=== PATIENT | female | born 1950 | race Caucasian/White ===

== ENCOUNTER 2022-05-16 12:47 | Outpatient (REF) | payer OTHER, SELFPAY ==
--- NOTE | ~2022-05-16 | XR_ITS ---
EXAMINATION: XR CHEST CLINICAL INFORMATION: Cough. COMPARISON: 04/15/2018 chest radiographs. TECHNIQUE: 2 views of the chest were obtained. FINDINGS: No significant abnormality is noted involving the heart, lungs, mediastinum, bony thorax or soft tissues. XR/XR chest 2V IMPRESSION: No acute cardiopulmonary process.
== END 2022-05-16 12:48 | disposition home or self-care (01) ==
LOC: HO.HMGCX 12:47
PROVIDERS: PCP Internal Medicine; Visit Provider Internal Medicine
DX: R05.9 Cough, unspecified (principal)
CPT/HCPCS: 71046

== ENCOUNTER 2022-06-21 09:54 | Outpatient (REF) | payer OTHER, SELFPAY ==
[2022-06-21 11:18] LABS: MANUAL DIFF FLAG NO
[2022-06-21 11:49] LABS: Basophils Percent Auto 0.8 % (0-2); Eosinophils Absolute Auto 0.1 X10*3/uL (0.0-0.4); Eosinophils Percent Auto 2.2 % (0-4); Hemoglobin 13.8 g/dl (12.0-16.0); Imm Gran Abs Auto 0.01 X10*3/uL (0.00-0.03); Imm Gran Pct Auto 0.2 % (0.0-0.4); Lymphocytes Absolute Auto 1.5 X10*3/uL (1.2-4.9); Lymphocytes Percent Auto 30.7 % (20-40); Mean Corpuscular HGB Conc 33.7 g/dl (31.0-35.0); Mean Corpuscular Hemoglobin 28.4 pg (27.0-33.0); Mean Corpuscular Volume 84.4 fL (80.0-98.0); Mean Platelet Volume 10.1 fL (9.4-12.3); Monocytes Absolute Auto 0.3 X10*3/uL (0.1-1.2); Monocytes Percent Auto 5.5 % (2-11); Neutrophils Percent Auto 60.6 % (45-73); Platelet Count 217 X10*3/uL (160-400); Red Blood Count 4.86 X10*6/uL (4.20-5.50)
[2022-06-21 12:18] LABS: Alanine Aminotransferase 28 U/L (0-31); Albumin Level 3.9 g/dL (3.5-5.0); Alkaline Phosphatase 63 U/L (39-117); Anion Gap 12 (12-20); Aspartate Amino Transferase 18 U/L (5-31); Bilirubin Total 0.5 mg/dL (0.0-1.0); Blood Urea Nitrogen 19 mg/dL (9-16); C Reactive Protein 0.33 mg/dL (< or = 0.50); Calcium 9.2 mg/dL (8.4-10.2); Carbon Dioxide 29 mmol/L (22-29); Chloride 106 mmol/L (96-108); Cholesterol 187 mg/dL; Estimated Glomerular Filt Rate > 60; Glucose Fasting 106 mg/dL (60-99); HDL Cholesterol 52 mg/dL; LDL Cholesterol Calculated 111 mg/dl; Potassium 4.1 mmol/L (3.3-5.1); Rheumatoid Factor 20.8 IU/mL (<15.0); Sodium 143 mmol/L (135-145); Total Protein 6.6 g/dL (6.5-8.0); Triglycerides 121 mg/dL
[2022-06-21 12:19] LABS: TSH reflex Free T4 1.26 uIU/mL (0.32-4.0)
[2022-06-21 12:20] LABS: Uric Acid 7.3 mg/dL (2.4-5.7)
== END 2022-06-21 09:55 | disposition home or self-care (01) ==
LOC: HO.HMGCLDS 09:54
PROVIDERS: PCP Internal Medicine; Visit Provider Internal Medicine
DX: Z00.00 Encounter for general adult medical examination without abnormal findings (principal); M25.50 Pain in unspecified joint; J44.9 Chronic obstructive pulmonary disease, unspecified; E78.5 Hyperlipidemia, unspecified
CPT/HCPCS: 36415; 80053; 80061; 82306; 84443; 84550; 85025; 86140; 86431

== ENCOUNTER 2022-07-18 14:53 | Outpatient (REF) | payer OTHER, SELFPAY ==
--- NOTE | ~2022-07-18 | MM_ITS ---
EXAMINATION: BONE DENSITOMETRY CLINICAL INDICATION: Asymptomatic menopausal state. COMPARISON: None (current study represents initial baseline exam). TECHNIQUE: Using a [employer] Data DXA System (software version: 13.1) manufactured by [employer], dual-energy x-ray absorptiometry was performed of the lumbar spine and left hip. The images are of good technical quality. Summary results are attached. FINDINGS: AP SPINE L1-L4: BMD 1.040 g/cm2, Z-score 0.1, T-score -1.2, osteopenia. LEFT FEMUR, NECK: BMD 0.853 g/cm2, Z-score 0.1, T-score -1.3, osteopenia. LEFT FEMUR, TOTAL: BMD 1.003 g/cm2, Z-score 1.1, T-score 0.0, normal. IDENTIFIED RISK FACTORS: Bilateral oophorectomy, early menopause, hysterectomy, rheumatoid arthritis, secondary osteoporosis, thiazide. HISTORY OF FRACTURE: None listed. MEDICATIONS: None listed. MM/XR DEXA axial skeleton IMPRESSION: 1. DIAGNOSIS: Osteopenia based on the lowest T-score value of -1.3 in the femoral neck applying World Health Organization criteria. 2. 10-YEAR FRACTURE RISK PREDICTION, FRAX: Major osteoporotic fracture (clinical spine, forearm, hip or shoulder) 11.7%. Hip fracture 1.6%. 3. Treatment Recommendations: NOF guidelines recommend consideration for treatment in postmenopausal women and men age 50 and older presenting with the following: -A hip or vertebral (clinical or morphometric) fracture. -T-score less than or equal to -2.5 at the femoral neck or spine after appropriate evaluation to exclude secondary causes. -Low bone mass at the hip or spine and a 10-year fracture probability by FRAX of greater than or equal to 3% for hip fracture or greater than or equal to 20% for major osteoporotic fracture based on the [place] adapted WHO algorithm. 4. Other Recommendations: All treatment decisions require clinical judgment and consideration of individual patient factors, including patient preferences, comorbidities, previous drug use, risk factors not captured in the FRAX model (e.g. frailty, falls, vitamin D deficiency, increased bone turnover, interval significant decline in bone density) and possible under or overestimation of fracture risk by FRAX. Additional medical evaluation for secondary cause of low bone mineral density may be appropriate. FUTURE SCAN RECOMMENDATION: People with diagnosed cases of osteoporosis or at high risk for fracture should have regular bone mineral density tests. For patients eligible for Medicare, routine testing is allowed once every 2 years. The testing frequency can be increased to one year for patients who have rapidly progressing disease, those who are receiving or discontinuing medical therapy to restore bone mass, or have additional risk factors.
--- NOTE | 2022-07-18 17:08 | PFT_ITS ---
INDICATION: COPD. SPIROMETRY: FEV1 to FVC of 82% with an FEV1 of 2.09 L, which is 99% predicted and FVC of 2.51 L, which is 90% predicted. No significant response to bronchodilator is noted. Maximum voluntary ventilation 80% predicted. LUNG VOLUMES: Total lung capacity 95% predicted. DIFFUSION CAPACITY: DLCO 82% predicted. COMPARISONS: None. INTERPRETATION: No obstructive nor restrictive ventilatory defects identified. No significant response to bronchodilator is noted. Low-normal maximum voluntary ventilation. There could be some minimal deconditioning. Lung volumes are normal and diffusion capacity is also within normal limits. If asthma is in the differential, a methacholine challenge may be helpful in assessing for hyperreactive airways. Otherwise, clinical correlation warranted. MD HUMERA Atkinson/MODL / [id number]
== END 2022-07-18 14:54 | disposition home or self-care (01) ==
LOC: HO.RESP 14:53
PROVIDERS: PCP Internal Medicine; Visit Provider Internal Medicine
DX: Z13.820 Encounter for screening for osteoporosis (principal); Z78.0 Asymptomatic menopausal state; J44.9 Chronic obstructive pulmonary disease, unspecified
CPT/HCPCS: 77080; 94060; 94727; 94729

== ENCOUNTER 2022-12-18 10:59 | Outpatient (AMB) | payer OTHER, SELFPAY ==
[2022-12-18 11:02] VITALS: BP 136/78; PULSE 76; O2SAT 97; BMI 31.4
--- NOTE | 2022-12-18 11:02 | A.OFFPC_ITS ---
Vital Signs 12/18/22 11:02 Height 5 ft 3 in Weight 177 lb BMI 31.4 BP 136/78 Blood Pressure Location Lt brachial Position Sitting Pulse 76 Pulse Source Pulse Oximeter Pulse Oximetry (%) 97 Oxygen Delivery Method Room Air Intake Visit Reasons: 6m follow up COPD Intake Note: Pt is here today for 6 months follow up visit. Allergies latex Allergy (Unknown, Verified 12/18/22 11:10) unknown Bee Zee Allergy (Unknown, Uncoded 12/18/22 11:10) Unknown Medication List - Last Reconciled 12/18/22 by Nedra Alexander MD carvedilol (Coreg) 12.5 mg (2 x 6.25 mg) PO BID fluticasone propion-salmeterol 45-21 mcg/actuation (Advair HFA) 2 puffs inhalation BID meloxicam 15 mg PO DAILY methotrexate sodium 7.5 mg PO QWEEK pravastatin 20 mg PO DAILY triamterene-hydrochlorothiazid 37.5-25 mg 1 tab PO DAILY Tobacco use date assessed: 12/18/22 Fall risk assessment: No Falls in past year Last assessed Fall Risk: 12/18/22 Dental Screening Dental Screen Date: 12/18/22 Did you have a dental visit in the last 12 months?: Yes Did you have a dental problem in the last 6 months where you did not have access to dental care?: No Was dental information given to patient?: Patient has dentist HPI 6m follow up COPD HPI Details Pt presents for f/u COPD, HTN, stable on meds. 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 PENDING SALE TO [facility] Medical History Venous insufficiency of both lower extremities COPD (chronic obstructive pulmonary disease) Hyperlipidemia Radiculopathy MCNEIL (dyspnea on exertion) Dysplastic nevi Postmenopausal Schatzki's ring Annual physical exam Headache HTN (hypertension) Rheumatoid arthritis Asthma Surgical History H/O colonoscopy No pertinent past surgical history Family History Father History of heart attack CVD (cardiovascular disease) Mother No problems noted. Social History Housing: House Alcohol intake: current Alcohol intake frequency: does not drink Patient Tobacco Use Status: Never used Tobacco e-Cigarette/Vaping Use: Never Used Second Hand Smoke Exposure: No Current occupational status: employed Cognitive needs: No Hearing needs: No Vision needs: Yes Questionnaire PHQ-9 Over the last 2 weeks, how often have you been bothered by any of the following problems? 1. Little interest or pleasure in doing things: not at all 2. Feeling down, depressed, or hopeless: not at all 3. Trouble falling or staying asleep, or sleeping too much: not at all 4. Feeling tired or having little energy: not at all 5. Poor appetite or overeating: not at all 6. Feeling bad about yourself - or that you are a failure or have let yourself or your family down: not at all 7. Trouble concentrating on things, such as reading the newspaper or watching television: not at all 8. Moving or speaking so slowly that other people could have noticed. Or the opposite - being so fidgety or restless that you have been moving around a lot more than usual: not at all 9. Thoughts that you would be better off or of hurting yourself in some way: not at all Total score: 0 Depression Screening Interpretation: Negative Source: Developed by Drs. Audi Mae, Lisy Prajapati, Idris Garcia and colleagues, with an educational travis from [employer]. Thrive Questionnaire Date Thrive assessed: 12/18/22 I am a: Patient What is your living situation today?: I have a steady place to live Within the past 12 months, did the food you bought not last and you didn't have the money to get more?: Never true Within the past 12 months, did you worry whether your food would run out before you got money to buy more?: Never true Do you have trouble paying for medicines?: No Do you have trouble getting transportation to medical appointments?: No Do you have trouble paying your heating and electricity bill?: No Do you have trouble taking care of your child, family member or friend?: No Do you have trouble with day-to-day activities such as bathing, preparing meals, shopping, managing finances, etc.?: No Are you currently unemployed and looking for a job?: No Are you interested in more education?: No Please select the resources that you would like help with: None Currently or been in a relationship where the following occur: no concerns reported AUDIT C Alcohol Use Questionnaire (AUDIT-C) 1. How often do you have a drink containing alcohol?: Never 3. How often do you have six or more drinks on one occasion?: Never Total Score: 0 LATONYA-7 AMB Questionnaire LATONYA-7 Date LATONYA - 7 assessed: 12/18/22 Feeling nervous, anxious, or on edge: 0 = Not at all Not being able to stop or control worryin = Not at all Worrying too much about different things: 0 = Not at all Trouble relaxin = Not at all Being so restless that it is hard to sit still: 0 = Not at all Becoming easily annoyed or irritable: 0 = Not at all Feeling afraid as if something awful might happen: 0 = Not at all Total LATONYA-7 score (0-4 normal; 5-9 mild; 10-14 moderate; 15-21 severe): 0 Source: Developed by Drs. Audi Mae, Lisy Prajapati, Idris Garcia and colleagues, with an educational travis from [employer]. Review of Systems Const All systems reviewed & are unremarkable except as noted in HPI and below Reports no additional complaints Eyes Reports no additional complaints ENT Reports no additional complaints Card Reports no additional complaints Resp Reports no additional complaints GI Reports no additional complaints Physical exam (Primary Care) Vital Signs: Last Vital Signs Pulse 76 12/18/22 11:02 BP 136/78 12/18/22 11:02 Pulse Ox 97 12/18/22 11:02 Oxygen Delivery Method Room Air 12/18/22 11:02 BMI result Body Mass Index 31.4 Tobacco/Smoking Status: Tobacco use Status Tobacco use date assessed 12/18/22 12/18/22 11:14 Patient Tobacco Use Status Never used Tobacco 12/18/22 11:03 e-Cigarette/Vaping Use Never Used 12/18/22 11:03 PHQ-9: PHQ-9 Score PHQ-9: Total score 0 12/18/22 11:14 Depression Screening Interpretation: Negative Thrive Assessment: Date of Thrive Assessment Date Thrive assessed 09/11/23 09/11/23 11:14 Currently or been in a relationship where the following occur: no concerns reported Const General: no acute distress HENMT Ears: hearing grossly normal bilaterally Face and sinus: Yes normal facial exam Eyes General: appearance normal, both eyes and all related structures Neck Neck: Yes supple Resp Effort & Inspection: normal respiratory effort Auscultation: clear to auscultation bilaterally Cardio Rhythm: regular rhythm Heart sounds: S1 normal heart sound present and S2 normal heart sound present GI Inspection: Yes normal to inspection Palpation (GI): Soft to palpation Percussion: Yes normal to percussion Auscultation: normal bowel sounds Assessment and Plan Assessment & Plan (1) Rheumatoid arthritis: Code(s): M06.9 - Rheumatoid arthritis, unspecified Plan: Referred to rheumatology (2) Arthralgia: Code(s): M25.50 - Pain in unspecified joint (3) Hyperlipidemia: Code(s): E78.5 - Hyperlipidemia, unspecified Plan: Continue pravastatin (4) HTN (hypertension): Code(s): I10 - Essential (primary) hypertension Plan: Continue current medications (5) COPD (chronic obstructive pulmonary disease): Comment: CXR 04/2021 COPD, RLL mild scarring, intolerant to Anoro and Advair discus Code(s): J44.9 - Chronic obstructive pulmonary disease, unspecified Plan: Continue Advair Orders: Orders Comprehensive [place]. Panel Fast 5 Months E78.5 - Hyperlipidemia, unspecified, I10 - Essential (primary) hypertension Vitamin D 25-OH Total 5 Months E78.5 - Hyperlipidemia, unspecified, I10 - Essential (primary) hypertension Complete Blood Count Auto Diff 5 Months E78.5 - Hyperlipidemia, unspecified, I10 - Essential (primary) hypertension Lipid Panel 5 Months E78.5 - Hyperlipidemia, unspecified, I10 - Essential (primary) hypertension TSH reflex Free T4 5 Months E78.5 - Hyperlipidemia, unspecified, I10 - Essential (primary) hypertension Referrals Rheumatology Referral M06.9 - Rheumatoid arthritis, unspecified, M25.50 - Pain in unspecified joint Medications: Refilled fluticasone propion-salmeterol 45-21 mcg/actuation (Advair HFA) 2 puffs inhalation BID 12 grams 6RF carvedilol (Coreg) must administer with a meal/food NO SUBSTITUTION 12.5 mg (2 x 6.25 mg) PO BID 360 tabs 3RF triamterene-hydrochlorothiazid 37.5-25 mg NO SUBSTITUTION 1 tab PO DAILY 90 tabs 3RF meloxicam 15 mg PO DAILY 90 tabs 0RF Discontinued umeclidinium-vilanterol 62.5-25 mcg/actuation (Anoro Ellipta) Discontinued Reason: Doctor's Order 1 inh inhalation DAILY 60 ea 4RF Coding Level of Care Code Est Pt Level 4 (41857) Diagnoses Rheumatoid arthritis M06.9 Arthralgia M25.50 Hyperlipidemia E78.5 HTN (hypertension) I10 COPD (chronic obstructive pulmonary disease) J44.9
== END 2022-12-18 12:19 | disposition home or self-care (01) ==
PROVIDERS: PCP Internal Medicine; Visit Provider Internal Medicine
DX: M06.9 Rheumatoid arthritis, unspecified (principal); I10 Essential (primary) hypertension; J44.9 Chronic obstructive pulmonary disease, unspecified; M25.50 Pain in unspecified joint; E78.5 Hyperlipidemia, unspecified
CPT/HCPCS: 99214

== ENCOUNTER 2022-12-19 08:27 | Outpatient (REF) | payer OTHER, SELFPAY ==
--- NOTE | ~2022-12-19 | XR_ITS ---
EXAMINATION: XR KNEE, RIGHT CLINICAL INFORMATION: Right knee pain COMPARISON: None available. TECHNIQUE: Four views of the right knee. FINDINGS: Tricompartment spurring. Moderately severe medial and mild patellofemoral narrowings. Lateral knee compartment is maintained. Small suprapatellar effusion. No fracture or dislocation. XR/XR knee RT 3V IMPRESSION: Osteoarthritic changes. No acute bony pathology.
== END 2022-12-19 08:28 | disposition home or self-care (01) ==
LOC: HO.HOSX 08:27
PROVIDERS: Visit Provider Orthopaedic Surgery
DX: M25.561 Pain in right knee (principal); M06.9 Rheumatoid arthritis, unspecified
CPT/HCPCS: 73562

== ENCOUNTER 2022-12-19 14:36 | Outpatient (AMB) | payer OTHER, SELFPAY ==
--- NOTE | 2022-12-19 14:48 | A.OFFVIS_ITS ---
Intake Vital Signs 12/19/22 14:49 Height 5 ft 3 in Weight 177 lb BMI 31.4 Intake Visit Reasons: BILINGUAL RECEPTIONIST- Rt Knee pain Intake Note: Arleen a 72 year old female who presents today as a new patient with complaints of right knee pain. Patient reports pain for a long time and has been receiving cortisone injections that are no longer providing her relief, last injection about 3 months ago. The patient did undergo right knee surgery at [facility] approximately 6 years ago. She got temporary relief from that procedure. She has been told that she might need total knee replacement surgery in the future. She wishes to hold off on surgery for as long as possible. The patient also states that she was seeing a miniature set constructor here for treatment of her rheumatoid arthritis. Her miniature set constructor moved out of the local area. She would like to establish rheumatologic care here at [facility] if possible. She denies any locking or giving way. She has done physical therapy for 12 weeks over the last 6 months which aggravated her pain. She has also tried Tylenol and anti-inflammatory medicines which gave her only mild relief. Allergies latex Allergy (Unknown, Verified 12/18/22 11:10) unknown bee pollen Allergy (Verified 12/19/22 14:56) hives, swelling Medication List - Last Reconciled 12/19/22 by Herbert Clark MD carvedilol (Coreg) 12.5 mg (2 x 6.25 mg) PO BID fluticasone propion-salmeterol 45-21 mcg/actuation (Advair HFA) 2 puffs inhalation BID folic acid 1 mg PO DAILY meloxicam 15 mg PO DAILY methotrexate sodium 7.5 mg PO QWEEK pravastatin 20 mg PO DAILY triamterene-hydrochlorothiazid 37.5-25 mg 1 tab PO DAILY ON LICENSE OF [facility] Medical History (Updated 12/18/22 @ 12:18 by Nedra Alexander MD) Venous insufficiency of both lower extremities COPD (chronic obstructive pulmonary disease) Hyperlipidemia Radiculopathy MCNEIL (dyspnea on exertion) Dysplastic nevi Postmenopausal Schatzki's ring Annual physical exam Headache HTN (hypertension) Rheumatoid arthritis Asthma Surgical History (Updated 12/19/22 @ 15:15 by Dinah Sahu Brian) History of right knee surgery H/O colonoscopy No pertinent past surgical history Family History Father History of heart attack CVD (cardiovascular disease) Mother No problems noted. Social History (Updated 12/19/22 @ 14:58 by Dinah Sahu Brian) Housing: House Alcohol intake: current Alcohol intake frequency: does not drink Patient Tobacco Use Status: Never used Tobacco e-Cigarette/Vaping Use: Never Used Second Hand Smoke Exposure: No Current occupational status: retired Cognitive needs: No Hearing needs: No Vision needs: Yes Physical Exam Vital Signs: BMI result Body Mass Index 31.4 Const Other: Well-nourished well-developed very friendly female awake alert and oriented x3 in no acute distress Extrem Other: Bilateral lower extremity examination shows good capillary refill, no skin lesions noted, normal sensation light touch Right knee examination shows a minimal effusion, palpable crepitus with range of motion, pain with range of motion, range of motion from -3 degrees to 115 degrees, no instability Results Reviewed Results Reviewed: X-rays of the patient's right knee show moderate to severe joint space narrowing most significant in the medial compartment, subchondral sclerosis, no acute bony abnormalities Assessment & Plan Assessment & Plan (1) Rheumatoid arthritis: Code(s): M06.9 - Rheumatoid arthritis, unspecified (2) Right knee pain: Code(s): M25.561 - Pain in right knee Plan Ms. Noonan presents with right knee pain due to rheumatoid arthritis and degenerative joint disease. I had a lengthy discussion with the patient regarding the treatment options. She wishes to hold off on total knee replacement surgery for as long as possible. I agree with this plan. She has had cortisone injections in the past which gave her minimal relief. She has not tried a viscosupplementation injection. Thus, I will see whether not her insurance company will cover a viscosupplementation injection for her right knee. I will see her back once the injection is available. She will continue with her activity modifications in the meantime. I also range for a consultation with our rheumatology group here at [facility] per the patient's request. She will follow-up as instructed. Feel free to call me at any time should questions regarding her orthopedic management arise. Thank you very much for asking me to see this very friendly patient. I spent 22 minutes in reviewing the patient's records and imaging studies, seeing the patient and documenting in the medical record. Orders: Orders XR knee RT 3V 12/19/22 M25.561 - Pain in right knee Referrals Rheumatology Referral M06.9 - Rheumatoid arthritis, unspecified Medications: New methotrexate sodium 7.5 mg PO QWEEK 14 tabs 0RF Coding Level of Care Code New Pt Level 2 (80645) Diagnoses Rheumatoid arthritis M06.9 Right knee pain M25.561
[2022-12-19 14:49] VITALS: BMI 31.4
== END 2022-12-19 15:28 | disposition home or self-care (01) ==
PROVIDERS: PCP Internal Medicine; Visit Provider Orthopaedic Surgery
DX: M06.9 Rheumatoid arthritis, unspecified (principal); M25.561 Pain in right knee
CPT/HCPCS: 99202

== ENCOUNTER 2022-12-27 08:39 | Outpatient (AMB) | payer OTHER, SELFPAY ==
--- NOTE | 2022-12-27 08:43 | A.OFFVIS_ITS ---
Intake Intake Visit Reasons: OV-right knee synvisc one injection Intake Note: Arleen is a 72 year old female who presents with complaints of progressive worsening right knee pain. She describes her pain as sharp and severe in nature. She has had cortisone injections in the past which gave her minimal relief. She has also tried Tylenol and anti-inflammatory medicines which gave her only mild relief. She has done physical therapy exercises which aggravated her pain. She wishes to hold off on total knee replacement surgery for as long as possible. Allergies latex Allergy (Unknown, Verified 12/27/22 08:48) unknown bee pollen Allergy (Verified 12/27/22 08:48) hives, swelling Medication List - Last Reconciled 12/27/22 by Herbert Clark MD carvedilol (Coreg) 12.5 mg (2 x 6.25 mg) PO BID fluticasone propion-salmeterol 45-21 mcg/actuation (Advair HFA) 2 puffs inhalation BID folic acid 1 mg PO DAILY meloxicam 15 mg PO DAILY methotrexate sodium 7.5 mg PO QWEEK pravastatin 20 mg PO DAILY triamterene-hydrochlorothiazid 37.5-25 mg 1 tab PO DAILY PFSH Medical History Venous insufficiency of both lower extremities COPD (chronic obstructive pulmonary disease) Hyperlipidemia Radiculopathy MCNEIL (dyspnea on exertion) Dysplastic nevi Postmenopausal Schatzki's ring Annual physical exam Headache HTN (hypertension) Rheumatoid arthritis Asthma Surgical History History of right knee surgery H/O colonoscopy No pertinent past surgical history Family History Father History of heart attack CVD (cardiovascular disease) Mother No problems noted. Social History Housing: House Alcohol intake: current Alcohol intake frequency: does not drink Patient Tobacco Use Status: Never used Tobacco e-Cigarette/Vaping Use: Never Used Second Hand Smoke Exposure: No Current occupational status: retired Cognitive needs: No Hearing needs: No Vision needs: Yes Physical Exam Const Other: Well-nourished well-developed very friendly female awake alert and oriented x3 in no acute distress Extrem Other: Bilateral lower extremity examination shows good capillary refill, no skin lesions noted, normal sensation light touch Right knee examination shows a minimal effusion, palpable crepitus with range of motion, pain with range of motion, range of motion from -3 degrees to 115 degrees, no instability Office Procedures Joint Injection/Drain Joint Injection/Drain Primary Site: right knee Prep: site was prepped using aseptic technique Injected: 60 mg of (Synvisc One) and 1% plain lidocaine Procedure: The patient tolerated the procedure well Coding - Large joint Procedure code (CPT) selection complete Results Reviewed Results Reviewed: 12/27/22 08:37 Hylan G-F 20 [Synvisc-One] 48 mg INTRAARTIC .STK-MED ONE 12/27/22 08:38 Lidocaine HCl 2 % MPF [Xylocaine 2 % MPF] 5 ml .ROUTE .STK-MED ONE X-rays of the patient's right knee show joint space narrowing, subchondral sclerosis, no deformity abnormalities Assessment & Plan Assessment & Plan (1) Arthritis of right knee: Code(s): M17.11 - Unilateral primary osteoarthritis, right knee Plan Ms. Noonan presents with right knee pain due to degenerative joint disease. Had a lengthy discussion with the patient regarding the treatment options. She wishes to hold off on surgery for as long as possible. She has not gotten good relief from cortisone injections in the past. Thus, the risks and benefits of a Synvisc-One viscosupplementation injection were discussed at length with the patient. The patient wished to proceed. She tolerated the injection well. She will continue with her home exercise program. She will follow up me on an as- needed basis should her symptoms not plateau at an acceptable level over the next few months. Feel free to call me at any time should questions regarding her orthopedic management arise. I spent 22 minutes in reviewing the patient's records and imaging studies, seeing the patient and documenting in the medical record. Orders: Orders AMB Joint Injection/Aspiration Today M17.11 - Unilateral primary osteoarthritis, right knee Coding Level of Care Code Est Pt Level 2 (93346) Diagnoses Arthritis of right knee M17.11 CPT Codes Coding - Large joint: 74140 - Large joint ([id number])
== END 2022-12-27 09:15 | disposition home or self-care (01) ==
PROVIDERS: PCP Internal Medicine; Visit Provider Orthopaedic Surgery
DX: M17.11 Unilateral primary osteoarthritis, right knee (principal)
CPT/HCPCS: 20610; 99213

== ENCOUNTER → 2022-12-27 08:39 | Outpatient (BNVA) | payer OTHER, SELFPAY | PROVIDERS: PCP Internal Medicine; Visit Provider Orthopaedic Surgery | DX: M17.11 Unilateral primary osteoarthritis, right knee (principal) | CPT/HCPCS: 20610; J7325 ==

== ENCOUNTER 2023-03-14 11:51 | Outpatient (AMB) | payer OTHER, SELFPAY ==
--- NOTE | 2023-03-14 11:58 | A.OFFPC_ITS ---
Vital Signs 03/14/23 12:01 Height 5 ft 3 in Weight 177 lb BMI 31.4 BP 120/80 Blood Pressure Location Lt brachial Position Sitting Pulse 74 Pulse Source Pulse Oximeter Pulse Oximetry (%) 97 Oxygen Delivery Method Room Air Intake Visit Reasons: Bilateral lid blepharoplasty 03/28/Dr. Temple Intake Note: Pt is here today for pre op visit. Pt is having surgery for bilateral upper lid ptosis on 03/28/23.Pt states that her BP has been running high and she has been having headaches and L side neck pain. Allergies latex Allergy (Unknown, Verified 03/14/23 12:18) unknown bee pollen Allergy (Verified 03/14/23 12:18) hives, swelling Medication List - Last Reconciled 03/14/23 by Nedra Alexander MD carvedilol (Coreg) 6.25 mg PO BID fluticasone propion-salmeterol 45-21 mcg/actuation (Advair HFA) 2 puffs inhalation BID folic acid 1 mg PO DAILY meloxicam 15 mg PO DAILY pravastatin 20 mg PO DAILY semaglutide (weight loss) (Wegovy) 0.25 mg (0.5 mL) subcut QWEEK triamterene-hydrochlorothiazid 37.5-25 mg 1 tab PO DAILY Tobacco use date assessed: 03/14/23 HPI Bilateral lid blepharoplasty 03/28/Dr. Temple HPI Details Pt presents for preop visit for bilateral blepharoplasty. Patient reports fluctuating blood pressure recently and has been taking extra dose of carvedilol on and off. She has been under lot of stress related to her family. Patient would like to try Wegovy for weight loss. Hyperlipidemia is controlled on pravastatin. [facility] Medical History Venous insufficiency of both lower extremities COPD (chronic obstructive pulmonary disease) Hyperlipidemia Radiculopathy MCNEIL (dyspnea on exertion) Dysplastic nevi Postmenopausal Schatzki's ring Annual physical exam Headache HTN (hypertension) Rheumatoid arthritis Asthma Surgical History History of right knee surgery H/O colonoscopy No pertinent past surgical history Family History Father History of heart attack CVD (cardiovascular disease) Mother No problems noted. Social History Housing: House Alcohol intake: current Alcohol intake frequency: does not drink Patient Tobacco Use Status: Never used Tobacco e-Cigarette/Vaping Use: Never Used Second Hand Smoke Exposure: No Current occupational status: retired Cognitive needs: No Hearing needs: No Vision needs: Yes Questionnaire Thrive Questionnaire Date Thrive assessed: 12/18/22 LATONYA-7 AMB Questionnaire LATONYA-7 Date LATONYA - 7 assessed: 12/18/22 Source: Developed by Drs. Audi Mae, Lisy Prajapati, Idris Garcia and colleagues, with an educational travis from [employer]. Review of Systems Const All systems reviewed & are unremarkable except as noted in HPI and below Reports no additional complaints Eyes Reports no additional complaints ENT Reports no additional complaints Card Reports no additional complaints Resp Reports no additional complaints GI Reports no additional complaints Reports no additional complaints Physical exam (Primary Care) Vital Signs: Last Vital Signs Pulse 74 03/14/23 12:01 BP 120/80 03/14/23 12:01 Pulse Ox 97 03/14/23 12:01 Oxygen Delivery Method Room Air 03/14/23 12:01 BMI result Body Mass Index 31.4 Tobacco/Smoking Status: Tobacco use Status Tobacco use date assessed 03/14/23 03/14/23 12:39 Patient Tobacco Use Status Never used Tobacco 03/14/23 12:00 e-Cigarette/Vaping Use Never Used 03/14/23 12:00 Thrive Assessment: Date of Thrive Assessment Date Thrive assessed 12/18/22 03/14/23 12:00 Const General: no acute distress HENMT Head: Yes normal to inspection Ears: hearing grossly normal bilaterally Face and sinus: Yes normal facial exam Throat: Yes posterior oropharynx normal Neck Other: Slight tenderness in the left submandibular region, no appreciated masses Neck: Yes no lymphadenopathy Resp Effort & Inspection: normal respiratory effort Auscultation: clear to auscultation bilaterally Cardio Rhythm: regular rhythm Heart sounds: S1 normal heart sound present and S2 normal heart sound present Assessment and Plan Assessment & Plan (1) Cervical adenopathy: Code(s): R59.0 - Localized enlarged lymph nodes Plan: Obtain neck ultrasound to evaluate for adenopathy (2) HTN (hypertension): Code(s): I10 - Essential (primary) hypertension Plan: Patient was advised to continue 3 tablets of carvedilol twice a day, follow low sodium diet increase physical activity. She was advised to monitor her blood pressure only once a day and not every 2 hours. (3) Hyperlipidemia: Code(s): E78.5 - Hyperlipidemia, unspecified Plan: Continue statin (4) Ptosis of eyelid, bilateral: Code(s): H02.403 - Unspecified ptosis of bilateral eyelids Plan: PATIENT IS MEDICALLY CLEARED FOR BILATERAL BLEPHAROPLASTY (5) Overweight: Code(s): E66.3 - Overweight Plan: Patient will try Wegovy 0.25 weekly and f/u in 3 months Orders: Orders Comprehensive Met. Panel Today E78.5 - Hyperlipidemia, unspecified, I10 - Essential (primary) hypertension TSH reflex Free T4 Today E78.5 - Hyperlipidemia, unspecified, I10 - Essential (primary) hypertension US soft tiss head and/or neck Today E78.5 - Hyperlipidemia, unspecified, I10 - Essential (primary) hypertension, R59.0 - Localized enlarged lymph nodes Complete Blood Count Auto Diff Today E78.5 - Hyperlipidemia, unspecified, I10 - Essential (primary) hypertension Medications: New semaglutide (weight loss) (Wegovy) administer weeks 1 through 4 of therapy 0.25 mg (0.5 mL) subcut QWEEK 6 mL 1RF folic acid 1 mg PO DAILY 90 tabs 3RF Changed From carvedilol (Coreg) must administer with a meal/food NO SUBSTITUTION 12.5 mg (2 x 6.25 mg) PO BID 360 tabs 3RF To carvedilol (Coreg) must administer with a meal/food NO SUBSTITUTION 6.25 mg PO BID Discontinued fluticasone propion-salmeterol 45-21 mcg/actuation (Advair HFA) Discontinued Reason: Doctor's Order 2 puffs inhalation BID 12 grams 6RF Coding Level of Care Code Est Pt Level 4 (21628) Diagnoses Cervical adenopathy R59.0 HTN (hypertension) I10 Hyperlipidemia E78.5 Ptosis of eyelid, bilateral H02.403 Overweight E66.3
[2023-03-14 12:01] VITALS: BP 120/80; PULSE 74; O2SAT 97; BMI 31.4
== END 2023-03-14 14:08 | disposition home or self-care (01) ==
PROVIDERS: PCP Internal Medicine; Visit Provider Internal Medicine
DX: R59.0 Localized enlarged lymph nodes (principal); I10 Essential (primary) hypertension; E78.5 Hyperlipidemia, unspecified; H02.403 Unspecified ptosis of bilateral eyelids; E66.3 Overweight
CPT/HCPCS: 99214

== ENCOUNTER 2023-03-19 08:34 | Outpatient (REF) | payer OTHER, SELFPAY ==
[2023-03-19 11:23] LABS: MANUAL DIFF FLAG NO
[2023-03-19 11:41] LABS: Basophils Percent Auto 0.6 % (0-2); Eosinophils Absolute Auto 0.1 X10*3/uL (0.0-0.4); Eosinophils Percent Auto 2.3 % (0-4); Hematocrit 39.8 % (37.0-47.0); Hemoglobin 13.5 g/dl (12.0-16.0); Imm Gran Abs Auto 0.01 X10*3/uL (0.00-0.03); Imm Gran Pct Auto 0.2 % (0.0-0.4); Lymphocytes Absolute Auto 1.4 X10*3/uL (1.2-4.9); Lymphocytes Percent Auto 29.8 % (20-40); Mean Corpuscular HGB Conc 33.9 g/dl (31.0-35.0); Mean Corpuscular Hemoglobin 29.2 pg (27.0-33.0); Mean Platelet Volume 10.2 fL (9.4-12.3); Monocytes Absolute Auto 0.3 X10*3/uL (0.1-1.2); Monocytes Percent Auto 6.7 % (2-11); Neutrophils Absolute Auto 2.9 x10*3/uL (2.0-8.3); Neutrophils Percent Auto 60.4 % (45-73); Platelet Count 213 X10*3/uL (160-400); Red Blood Count 4.63 X10*6/uL (4.20-5.50); White Blood Count 4.8 X10*3/uL (4.8-10.8)
[2023-03-19 12:15] LABS: Alanine Aminotransferase 30 U/L (0-31); Alkaline Phosphatase 57 U/L (39-117); Anion Gap 12 (12-20); Aspartate Amino Transferase 25 U/L (5-31); Bilirubin Total 0.4 mg/dL (0.0-1.0); Blood Urea Nitrogen 17 mg/dL (9-16); Calcium 9.3 mg/dL (8.4-10.2); Carbon Dioxide 26 mmol/L (22-29); Chloride 107 mmol/L (96-108); Estimated Glomerular Filt Rate > 60; Glucose Random 117 mg/dL (60-115); Potassium 3.8 mmol/L (3.3-5.1); Sodium 141 mmol/L (135-145)
[2023-03-19 12:20] LABS: TSH reflex Free T4 2.27 uIU/mL (0.32-4.0)
== END 2023-03-19 08:35 | disposition home or self-care (01) ==
LOC: HO.HMGCLDS 08:34
PROVIDERS: PCP Internal Medicine; Visit Provider Internal Medicine
DX: I10 Essential (primary) hypertension (principal); E78.5 Hyperlipidemia, unspecified
CPT/HCPCS: 36415; 80053; 84443; 85025

== ENCOUNTER 2023-03-20 11:27 | Outpatient (AMB) | payer OTHER, SELFPAY ==
[2023-03-20 11:22] VITALS: BP 140/76; PULSE 68; RESP 16; TEMP 36.5; O2SAT 98; BMI 31.6
--- NOTE | 2023-03-20 11:22 | A.OFFVIS_ITS ---
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 Accompanied by: Self / Same As Patient Allergies latex Allergy (Unknown, Verified 03/20/23 11:27) unknown bee pollen Allergy (Verified 03/20/23 11:27) hives, swelling Medication List - Last Reconciled 03/20/23 by Kelvin Haider MD carvedilol (Coreg) 6.25 mg PO BID folic acid 1 mg PO DAILY meloxicam 15 mg PO DAILY methotrexate sodium 7.5 mg PO QWEEK pravastatin 20 mg PO DAILY semaglutide (weight loss) (Wegovy) 0.25 mg (0.5 mL) subcut QWEEK triamterene-hydrochlorothiazid 37.5-25 mg 1 tab PO DAILY HPI HPI Comments History of Present Illness Details This is a 72-year-old female with seropositive RA who presents as a new patient. She states that she was diagnosed with rheumatoid arthritis when she was 47 years old. She states that she has been on methotrexate for many years. She is currently on 3 tabs weekly. She used to follow with marketing technologist Dr. Marin for many years but he moved to another location. She states that she is doing well overall. Recently she had a flare-up affecting her right wrist and it is resolving spontaneously. She states that sometimes she takes half a tablet of meloxicam 15 mg as needed for flare-ups. She has known bilateral knee osteoarthritis and recently received gel injections by Ortho for right knee which did help. States that her father had rheumatoid arthritis and used to rec eived gold injections. She denies any history of DVT/PE. She denies any history of abortions/miscarriages. [facility] Medical History Venous insufficiency of both lower extremities COPD (chronic obstructive pulmonary disease) Hyperlipidemia Radiculopathy MCNEIL (dyspnea on exertion) Dysplastic nevi Postmenopausal Schatzki's ring Annual physical exam Headache HTN (hypertension) Rheumatoid arthritis Asthma Surgical History History of right knee surgery H/O colonoscopy No pertinent past surgical history Family History Father History of heart attack CVD (cardiovascular disease) Rheumatoid arthritis Mother Gout Social History Housing: House Alcohol intake: current Alcohol intake frequency: does not drink Patient Tobacco Use Status: Never used Tobacco e-Cigarette/Vaping Use: Never Used Second Hand Smoke Exposure: No Current occupational status: retired Cognitive needs: No Hearing needs: No Vision needs: Yes Female Reproductive History Menstrual Total pregnancies: 2 Number of Living Children: 2 Review of Systems Const Reports weight gain Musc Reports arthralgias and Reports stiffness Physical Exam Vital Signs: Last Vital Signs Temp 97.7 F 03/20/23 11:22 Pulse 68 03/20/23 11:22 Resp 16 03/20/23 11:22 BP 140/76 H 03/20/23 11:22 Pulse Ox 98 03/20/23 11:22 Oxygen Delivery Method Room Air 03/20/23 11:22 BMI result Body Mass Index 31.6 Const General: cooperative, healthy appearing and comfortable Nutritional Appearance: obese Orientation/consciousness: patient oriented x3 Limitations: no limitations HEENT Head: Yes normocephalic and Yes atraumatic Mouth: moist mucous membranes Resp Effort & Inspection: normal respiratory effort and able to speak in complete sentences Auscultation: clear to auscultation bilaterally Cardio Rate: regular rate Rhythm: regular rhythm GI Inspection: No distended Palpation (GI): Soft to palpation and nontender Neuro General: patient oriented x3 Extrem Other: Mild osteoarthritic changes of both hands with no active synovitis Normal nailfold capillaroscopy Right knee crepitus and pain with flexion and extension Assessment & Plan Assessment & Plan (1) Seropositive rheumatoid arthritis: Comment: + RF onset age 47 Code(s): M05.9 - Rheumatoid arthritis with rheumatoid factor, unspecified Plan: This is a 72-year-old female with seropositive RA who presents as a new patient. Her previous marketing technologist left the practice. Patient is in remission on methotrexate 7.5 mg weekly. According to patient she has been on this dose for many years. Will request records from patient's previous marketing technologist Methotrexate refilled. Continue folic acid 1 mg daily. Labs before next visit in 6 months. Patient states that she usually gets blood work done by her PCP every 3-6 months. Plan I spent 45 minutes reviewing patient's chart, evaluating patient, ordering diagnostic workup, counseling patient and documenting in the chart Orders: Orders Complete Blood Count Auto Diff 6 Months Z79.631 - rat exterminator (current) use of antimetabolite agent C Reactive Protein 6 Months Z79.631 - half-way (current) use of antimetabolite agent Erythrocyte Sedimentation Rate 6 Months Z79.631 - half-way (current) use of antimetabolite agent Hepatitis A,B,C Profile 6 Months Z11.59 - Encounter for screening for other viral diseases Comprehensive Met. Panel 6 Months Z79.631 - half-way (current) use of antimetabolite agent Cyclic Citrullinated Peptide 6 Months Z79.631 - rat exterminator (current) use of antimetabolite agent Medications: Refilled methotrexate sodium 7.5 mg PO QWEEK 36 tabs 1RF Coding Level of Care Code New Pt Level 4 (10476) Diagnoses Seropositive rheumatoid arthritis M05.9
== END 2023-03-20 11:48 | disposition home or self-care (01) ==
LOC: HO.RHE 11:27
PROVIDERS: PCP Internal Medicine; Visit Provider Student in an Organized Health Care Education/Training Program
DX: M05.79 Rheumatoid arthritis with rheumatoid factor of multiple sites without organ or systems involvement (principal)
CPT/HCPCS: 99204

== ENCOUNTER → 2023-03-20 11:27 | Outpatient (BNVA) | payer OTHER, SELFPAY | PROVIDERS: PCP Internal Medicine; Visit Provider Student in an Organized Health Care Education/Training Program ==

== ENCOUNTER 2023-03-27 10:34 | Outpatient (REF) | payer OTHER, SELFPAY ==
--- NOTE | ~2023-03-27 | US_ITS ---
EXAMINATION: US SOFT TISSUE HEAD/NECK CLINICAL INFORMATION: Localized enlarged lymph nodes. COMPARISON: None available. TECHNIQUE: Linear transducer ramírez-scale and color Doppler examination with attention to the region of concern in the left submandibular neck with the right side for comparison. FINDINGS: Targeted ultrasound images were obtained by the polysomnography technician of the area of concern as indicated by the patient in the left submandibular neck at zones 2-5 B. Radiologist was not in attendance. Images were later provided for interpretation. There are multiple small lymph nodes with echogenic della in the area of concern indicated by the patient in the left neck with examples with measurements in transverse dimension as follows: 0.7 cm left level 4 node 0.8 cm left level 3 node 0.8 cm left level Ib node Single right level 2 node with echogenic hilum measures 1.1 cm in transverse dimension. Incidental note on limited views of the left thyroid lobe of a nodule described as follows: Location: Left thyroid . Size: 2.2 x 1.7 x 2.3 cm, volume 4.48 mL. Nodule characteristics: Composition: Solid (2). Echogenicity: Isoechoic (1). Shape: Taller than wide Margins: Smooth (0). Echogenic Foci: ACR TI-RADS total points: 9 ACR TI-RADS category: 5 Incidental note on limited views of the left thyroid lobe of a 2.2 x 1.7 x 2.3 cm, volume 4.48 mL nodule which is taller than wide, solid, isoechoic, smooth margins, internal vascularity for 9 total points, TI-RADS category 5. US/US soft tiss head and/or neck IMPRESSION: 1. Incidental note of a 2.2 cm TI-RADS category 5 left thyroid nodule which meets criteria for biopsy. Complete, dedicated thyroid ultrasound recommended. Fine-needle aspiration recommended. 2. Multiple small lymph nodes with echogenic della in the area of concern indicated by the patient in the left neck indicated by the patient. Decisions regarding further management should be based on the clinical assessment. Recommend follow-up ultrasound in 3 months. This study was presented today April 04, 2023 at 5:45 AM for interpretation. PSA staff will provide results to referring provider at this time.
== END 2023-03-27 10:35 | disposition home or self-care (01) ==
LOC: HO.HMGCX 10:34
PROVIDERS: PCP Internal Medicine; Visit Provider Internal Medicine
DX: R59.0 Localized enlarged lymph nodes (principal); I10 Essential (primary) hypertension; E78.5 Hyperlipidemia, unspecified
CPT/HCPCS: 76536

== ENCOUNTER 2023-06-28 10:41 | Outpatient (AMB) | payer OTHER, SELFPAY ==
--- NOTE | 2023-06-28 10:42 | MHC.PC.OV ---
Vital Signs 06/28/23 10:43 Height 5 ft 3 in Weight 172 lb BMI 30.5 BP 124/70 Blood Pressure Location Lt brachial Position Sitting Pulse 87 Pulse Source Pulse Oximeter Pulse Oximetry (%) 98 Oxygen Delivery Method Room Air Intake Visit Reasons: PE Intake Note: Pt is here today for PE. Pt needs a refill on her BP medication carvedilol. Allergies latex Allergy (Unknown, Verified 06/28/23 10:49) unknown bee pollen Allergy (Verified 06/28/23 10:49) hives, swelling Medication List - Last Reconciled 06/28/23 by Nedra Alexander MD carvedilol (Coreg) 6.25 mg PO BID folic acid 1 mg PO DAILY meloxicam 15 mg PO DAILY methotrexate sodium 7.5 mg (3 x 2.5 mg) PO QWEEK pravastatin 20 mg PO DAILY semaglutide (Ozempic) 0.25 mg (0.368 mL) subcut QWEEK triamterene-hydrochlorothiazid 37.5-25 mg 1 tab PO DAILY Tobacco use date assessed: 06/28/23 Fall risk assessment: No Falls in past year Last assessed Fall Risk: 06/28/23 Dental Screening Dental Screen Date: 06/28/23 Did you have a dental visit in the last 12 months?: Yes Did you have a dental problem in the last 6 months where you did not have access to dental care?: No Was dental information given to patient?: Patient has dentist HPI PE HPI Details Pt presents for PE. PFSH Medical History Venous insufficiency of both lower extremities COPD (chronic obstructive pulmonary disease) Hyperlipidemia Radiculopathy MCNEIL (dyspnea on exertion) Dysplastic nevi Postmenopausal Schatzki's ring Annual physical exam Headache HTN (hypertension) Rheumatoid arthritis Asthma Surgical History History of right knee surgery H/O colonoscopy No pertinent past surgical history Family History Father History of heart attack CVD (cardiovascular disease) Rheumatoid arthritis Mother Gout Social History Housing: House Alcohol intake: current Alcohol intake frequency: does not drink Patient Tobacco Use Status: Never used Tobacco e-Cigarette/Vaping Use: Never Used Second Hand Smoke Exposure: No Current occupational status: retired Cognitive needs: No Hearing needs: No Vision needs: Yes Questionnaire PHQ-9 Over the last 2 weeks, how often have you been bothered by any of the following problems? 1. Little interest or pleasure in doing things: not at all 2. Feeling down, depressed, or hopeless: not at all 3. Trouble falling or staying asleep, or sleeping too much: not at all 4. Feeling tired or having little energy: not at all 5. Poor appetite or overeating: not at all 6. Feeling bad about yourself - or that you are a failure or have let yourself or your family down: not at all 7. Trouble concentrating on things, such as reading the newspaper or watching television: not at all 8. Moving or speaking so slowly that other people could have noticed. Or the opposite - being so fidgety or restless that you have been moving around a lot more than usual: not at all 9. Thoughts that you would be better off or of hurting yourself in some way: not at all Total score: 0 Depression Screening Interpretation: Negative Depression Screening Done: Yes Source: Developed by Drs. Audi Mae, Lisy Prajapati, Idris Garcia and colleagues, with an educational travis from [employer]. Thrive Questionnaire Date Thrive assessed: 06/28/23 I am a: Patient What is your living situation today?: I have a steady place to live Within the past 12 months, did the food you bought not last and you didn't have the money to get more?: Never true Within the past 12 months, did you worry whether your food would run out before you got money to buy more?: Never true Do you have trouble paying for medicines?: No Do you have trouble getting transportation to medical appointments?: No Do you have trouble paying your heating and electricity bill?: No Do you have trouble taking care of your child, family member or friend?: No Do you have trouble with day-to-day activities such as bathing, preparing meals, shopping, managing finances, etc.?: No Are you currently unemployed and looking for a job?: No Are you interested in more education?: No Please select the resources that you would like help with: None Currently or been in a relationship where the following occur: no concerns reported THRIVE Score: 0 AUDIT C Alcohol Use Questionnaire (AUDIT-C) 1. How often do you have a drink containing alcohol?: Never 3. How often do you have six or more drinks on one occasion?: Never Total Score: 0 LATONYA-7 AMB Questionnaire LATONYA-7 Date LATONYA - 7 assessed: 06/28/23 Feeling nervous, anxious, or on edge: 0 = Not at all Not being able to stop or control worryin = Not at all Worrying too much about different things: 0 = Not at all Trouble relaxin = Not at all Being so restless that it is hard to sit still: 0 = Not at all Becoming easily annoyed or irritable: 0 = Not at all Feeling afraid as if something awful might happen: 0 = Not at all Total LATONYA-7 score (0-4 normal; 5-9 mild; 10-14 moderate; 15-21 severe): 0 Source: Developed by Drs. Audi Mae, Lisy Prajapati, Idris Garcia and colleagues, with an educational travis from [employer]. Review of Systems Const All systems reviewed & are unremarkable except as noted in HPI and below Reports no additional complaints Eyes Reports no additional complaints ENT Reports no additional complaints Card Reports no additional complaints Resp Reports no additional complaints GI Reports no additional complaints Reports no additional complaints Physical exam (Primary Care) Vital Signs: Last Vital Signs Pulse 87 06/28/23 10:43 BP 124/70 06/28/23 10:43 Pulse Ox 98 06/28/23 10:43 Oxygen Delivery Method Room Air 06/28/23 10:43 BMI result Body Mass Index 30.5 Tobacco/Smoking Status: Tobacco use Status Tobacco use date assessed 06/28/23 06/28/23 10:55 Patient Tobacco Use Status Never used Tobacco 06/28/23 10:55 e-Cigarette/Vaping Use Never Used 06/28/23 10:42 PHQ-9: PHQ-9 Score PHQ-9: Total score 0 06/28/23 11:46 Depression Screening Interpretation: Negative Thrive Assessment: Date of Thrive Assessment Date Thrive assessed 06/28/23 06/28/23 11:46 Currently or been in a relationship where the following occur: no concerns reported Const General: no acute distress HENMT Head: Yes normal to inspection General nose exam: Normal external nose present Face and sinus: Yes normal facial exam Throat: Yes posterior oropharynx normal Eyes General: appearance normal, both eyes and all related structures Neck Neck: Yes supple Resp Effort & Inspection: normal respiratory effort Auscultation: clear to auscultation bilaterally Cardio Rhythm: regular rhythm Heart sounds: S1 normal heart sound present and S2 normal heart sound present GI Inspection: Yes normal to inspection Palpation (GI): Soft to palpation Percussion: Yes normal to percussion Auscultation: normal bowel sounds Assessment and Plan Assessment & Plan (1) Hammertoes of both feet: Code(s): M20.41 - Other hammer toe(s) (acquired), right foot; M20.42 - Other hammer toe(s) (acquired), left foot Plan: Referred to Podiatry (2) HTN (hypertension): Code(s): I10 - Essential (primary) hypertension Plan: Continue current medications (3) Hx of mammogram: Comment: [facility] Code(s): Z92.89 - Personal history of other medical treatment (4) Thyroid nodule: Comment: 2.1 cm on US thyroid, negative biopsy 06/02 Code(s): E04.1 - Nontoxic single thyroid nodule Plan: Patient is contemplating surgery other option of repeating a scan in 6 months (5) Osteoarthritis of right knee: Code(s): M17.11 - Unilateral primary osteoarthritis, right knee Plan: Follow-up with orthopedics (6) COPD (chronic obstructive pulmonary disease): Comment: CXR 04/2021 COPD, RLL mild scarring, intolerant to Anoro and Advair discus Code(s): J44.9 - Chronic obstructive pulmonary disease, unspecified (7) Hyperlipidemia: Code(s): E78.5 - Hyperlipidemia, unspecified Plan: Continue statin (8) Annual physical exam: Code(s): Z00.00 - Encounter for general adult medical examination without abnormal findings Plan: Well-balanced diet regular physical activity discussed with the patient she is up-to-date with the mammogram colonoscopy and DEXA (9) Overweight: Code(s): E66.3 - Overweight Plan: Continue Ozempic follow-up in 3 months (10) Seropositive rheumatoid arthritis: Comment: + RF onset age 47 Code(s): M05.9 - Rheumatoid arthritis with rheumatoid factor, unspecified Plan: On methotrexate follow-up with rheumatology Orders: Orders PT Evaluation and Treatment Today M17.11 - Unilateral primary osteoarthritis, right knee Comprehensive [place]. Panel Fast 3 Months E78.5 - Hyperlipidemia, unspecified, I10 - Essential (primary) hypertension, J44.9 - Chronic obstructive pulmonary disease, unspecified, Z00.00 - Encounter for general adult medical examination without abnormal findings Lipid Panel 3 Months E78.5 - Hyperlipidemia, unspecified, I10 - Essential (primary) hypertension, J44.9 - Chronic obstructive pulmonary disease, unspecified, Z00.00 - Encounter for general adult medical examination without abnormal findings Complete Blood Count Auto Diff 3 Months E78.5 - Hyperlipidemia, unspecified, I10 - Essential (primary) hypertension, J44.9 - Chronic obstructive pulmonary disease, unspecified, Z00.00 - Encounter for general adult medical examination without abnormal findings TSH reflex Free T4 3 Months E78.5 - Hyperlipidemia, unspecified, I10 - Essential (primary) hypertension, J44.9 - Chronic obstructive pulmonary disease, unspecified, Z00.00 - Encounter for general adult medical examination without abnormal findings Hemoglobin A1c 3 Months E78.5 - Hyperlipidemia, unspecified, I10 - Essential (primary) hypertension, J44.9 - Chronic obstructive pulmonary disease, unspecified, Z00.00 - Encounter for general adult medical examination without abnormal findings Referrals Podiatry Referral M20.41 - Other hammer toe(s) (acquired), right foot, M20.42 - Other hammer toe(s) (acquired), left foot Medications: New carvedilol (Coreg) must administer with a meal/food NO SUBSTITUTION 6.25 mg PO BID 180 tabs 5RF Coding Level of Care Code Est Pt Prev Care >65y(46395) Diagnoses Hammertoes of both feet M20.41; M20.42 HTN (hypertension) I10 Hx of mammogram Z92.89 Thyroid nodule E04.1 Osteoarthritis of right knee M17.11 COPD (chronic obstructive pulmonary disease) J44.9 Hyperlipidemia E78.5 Annual physical exam Z00.00 Overweight E66.3 Seropositive rheumatoid arthritis M05.9
[2023-06-28 10:43] VITALS: BP 124/70; PULSE 87; O2SAT 98; BMI 30.5
== END 2023-06-28 12:36 | disposition home or self-care (01) ==
PROVIDERS: PCP Internal Medicine; Visit Provider Internal Medicine
DX: Z00.00 Encounter for general adult medical examination without abnormal findings (principal); J44.9 Chronic obstructive pulmonary disease, unspecified; M05.9 Rheumatoid arthritis with rheumatoid factor, unspecified; M20.41 Other hammer toe(s) (acquired), right foot; M20.42 Other hammer toe(s) (acquired), left foot; I10 Essential (primary) hypertension; Z92.89 Personal history of other medical treatment; E04.1 Nontoxic single thyroid nodule; M17.11 Unilateral primary osteoarthritis, right knee; E78.5 Hyperlipidemia, unspecified; E66.3 Overweight
CPT/HCPCS: 99397

== ENCOUNTER 2023-08-21 08:55 | Outpatient (REF) | payer MEDICARE, SELFPAY ==
--- NOTE | ~2023-08-21 | US_ITS ---
EXAMINATION: US SOFT TISSUE NECK CLINICAL INFORMATION: Localized enlargement lymph node. COMPARISON: 03/27/2023. TECHNIQUE: Ultrasound of the neck soft tissues is performed with high- frequency ramírez-scale imaging and color Doppler. FINDINGS: Targeted ultrasound images were obtained by the buffer machine in the bilateral cervical regions to follow up prior enlarged lymph nodes. Radiologist was not in attendance. Images were later provided for interpretation. Multiple bilateral cervical lymph nodes with echogenic della and characteristic reniform appearance are identified with measurements as follows: Right neck: Right cervical nodes measuring 1.1 x 0.6 x 1.3 cm level 2, 0.6 x 0.4 x 0.6 cm level 3, and 1.4 x 0.4 x 1.2 cm level 1B. These lymph nodes demonstrate echogenic della with characteristic reniform appearance. Previous exam demonstrated a single right level 2 node measuring 1.1 cm in transverse dimension. Left neck: 1.0 x 0.3 x 0.8 cm node at level 2, previously measured 2.0 x 0.3 x 0.8 cm. 0.6 x 0.5 x 0.8 cm left level 2 node, previously measured 0.7 x 0.5 x 0.7 cm. 1.0 x 0.5 x 0.4 cm left level 3 node was not previously measured. 0.7 x 0.3 x 0.7 cm left level Ib node, previously measured 1.2 x 0.5 x 0.8 cm. These lymph nodes demonstrate echogenic della with characteristic reniform appearance. US/US soft tiss head and/or neck IMPRESSION: Multiple small lymph nodes with echogenic della and characteristic reniform appearance as detailed above. If clinically indicated further evaluation of the neck soft tissues and nodes may be performed with CT soft tissue neck with intravenous contrast.
[2023-08-21 10:42] LABS: MANUAL DIFF FLAG NO
[2023-08-21 10:54] LABS: Basophils Percent Auto 0.7 % (0-2); Eosinophils Absolute Auto 0.2 X10*3/uL (0.0-0.4); Eosinophils Percent Auto 3.4 % (0-4); Hematocrit 39.1 % (37.0-47.0); Hemoglobin 13.4 g/dl (12.0-16.0); Imm Gran Abs Auto 0.02 X10*3/uL (0.00-0.03); Imm Gran Pct Auto 0.4 % (0.0-0.4); Lymphocytes Absolute Auto 1.5 X10*3/uL (1.2-4.9); Lymphocytes Percent Auto 34.6 % (20-40); Mean Corpuscular HGB Conc 34.3 g/dl (31.0-35.0); Mean Corpuscular Hemoglobin 29.4 pg (27.0-33.0); Mean Corpuscular Volume 85.7 fL (80.0-98.0); Mean Platelet Volume 9.9 fL (9.4-12.3); Monocytes Absolute Auto 0.3 X10*3/uL (0.1-1.2); Monocytes Percent Auto 6.5 % (2-11); Neutrophils Absolute Auto 2.4 x10*3/uL (2.0-8.3); Neutrophils Percent Auto 54.4 % (45-73); Platelet Count 199 X10*3/uL (160-400); Red Blood Count 4.56 X10*6/uL (4.20-5.50); White Blood Count 4.5 X10*3/uL (4.8-10.8)
[2023-08-21 11:19] LABS: Estimated Average Glucose 108 mg/dL; Hemoglobin A1c % 5.4 % (<6.0)
[2023-08-21 11:33] LABS: Rheumatoid Factor 17.1 IU/mL (<15.0)
[2023-08-21 11:41] LABS: Alanine Aminotransferase 24 U/L (0-31); Albumin Level 4.1 g/dL (3.5-5.0); Alkaline Phosphatase 57 U/L (39-117); Anion Gap 15 (12-20); Aspartate Amino Transferase 21 U/L (5-31); Bilirubin Total 0.5 mg/dL (0.0-1.0); Blood Urea Nitrogen 17 mg/dL (9-16); Calcium 9.6 mg/dL (8.4-10.2); Carbon Dioxide 25 mmol/L (22-29); Chloride 105 mmol/L (96-108); Cholesterol 172 mg/dL (<200); Estimated Glomerular Filt Rate > 60; Glucose Fasting 91 mg/dL (60-99); HDL Cholesterol 53 mg/dL (>40); LDL Cholesterol Calculated 106 mg/dL (<100); Potassium 3.6 mmol/L (3.3-5.1); Sodium 141 mmol/L (135-145); Total Protein 7.1 g/dL (6.5-8.0); Triglycerides 68 mg/dL (<150)
[2023-08-21 11:51] LABS: TSH reflex Free T4 1.12 uIU/mL (0.32-4.0)
== END 2023-08-21 08:56 | disposition home or self-care (01) ==
LOC: HO.HMGCX 08:55
PROVIDERS: PCP Internal Medicine; Visit Provider Internal Medicine
DX: Z00.00 Encounter for general adult medical examination without abnormal findings (principal); R59.0 Localized enlarged lymph nodes; I10 Essential (primary) hypertension; J44.9 Chronic obstructive pulmonary disease, unspecified; E78.5 Hyperlipidemia, unspecified; M05.9 Rheumatoid arthritis with rheumatoid factor, unspecified
CPT/HCPCS: 36415; 76536; 80053; 80061; 83036; 84443; 85025; 86431

== ENCOUNTER 2023-09-14 10:48 | Outpatient (AMB) | payer MEDICARE, SELFPAY ==
--- NOTE | 2023-09-14 10:52 | MHC.PC.OV ---
Vital Signs 09/14/23 10:53 Height 5 ft 3 in Weight 166 lb BMI 29.4 BP 118/70 Blood Pressure Location Rt brachial Position Sitting Pulse 58 Pulse Source Pulse Oximeter Pulse Oximetry (%) 97 Oxygen Delivery Method Room Air Intake Visit Reasons: Follow up Intake Note: Pt is here today for follow up. Allergies latex Allergy (Unknown, Verified 09/14/23 10:57) unknown bee pollen Allergy (Verified 09/14/23 10:57) hives, swelling Medication List - Last Reconciled 09/14/23 by Nedra Alexander MD carvedilol (Coreg) 6.25 mg PO BID folic acid 1 mg PO DAILY meloxicam 15 mg PO DAILY methotrexate sodium 7.5 mg (3 x 2.5 mg) PO QWEEK pravastatin 20 mg PO DAILY semaglutide (Ozempic) 0.25 mg (0.368 mL) subcut QWEEK triamterene-hydrochlorothiazid 37.5-25 mg 1 tab PO DAILY Tobacco use date assessed: 09/14/23 Dental Screening Dental Screen Date: 09/14/23 Did you have a dental visit in the last 12 months?: Yes Did you have a dental problem in the last 6 months where you did not have access to dental care?: No Was dental information given to patient?: Patient has dentist HPI Follow up HPI Details Pt presents for HTN, hyperlipid, RA stable on current medications. Patient lost 15 lb on Ozempic and has been tolerating well. [facility] Medical History Venous insufficiency of both lower extremities COPD (chronic obstructive pulmonary disease) Hyperlipidemia Radiculopathy MCNEIL (dyspnea on exertion) Dysplastic nevi Postmenopausal Schatzki's ring Annual physical exam Headache HTN (hypertension) Rheumatoid arthritis Asthma Surgical History History of right knee surgery H/O colonoscopy No pertinent past surgical history Family History Father History of heart attack CVD (cardiovascular disease) Rheumatoid arthritis Mother Gout Social History Housing: House Alcohol intake: current Alcohol intake frequency: does not drink Patient Tobacco Use Status: Never used Tobacco e-Cigarette/Vaping Use: Never Used Second Hand Smoke Exposure: No service: No Current occupational status: retired Cognitive needs: No Hearing needs: No Vision needs: Yes Questionnaire Thrive Questionnaire Date Thrive assessed: 06/28/23 AUDIT C Alcohol Use Questionnaire (AUDIT-C) 1. How often do you have a drink containing alcohol?: Never 3. How often do you have six or more drinks on one occasion?: Never Total Score: 0 LATONYA-7 AMB Questionnaire LATONYA-7 Date LATONYA - 7 assessed: 06/28/23 Source: Developed by Drs. Audi Mae, Lisy Prajapati, Idris Garcia and colleagues, with an educational travis from [employer]. Review of Systems Const All systems reviewed & are unremarkable except as noted in HPI and below Eyes Reports no additional complaints ENT Reports no additional complaints Card Reports no additional complaints Resp Reports no additional complaints GI Reports no additional complaints Reports no additional complaints Physical exam (Primary Care) Vital Signs: Last Vital Signs Pulse 58 09/14/23 10:53 BP 118/70 09/14/23 10:53 Pulse Ox 97 09/14/23 10:53 Oxygen Delivery Method Room Air 09/14/23 10:53 BMI result Body Mass Index 29.4 Tobacco/Smoking Status: Tobacco use Status Tobacco use date assessed 09/14/23 09/14/23 10:59 Patient Tobacco Use Status Never used Tobacco 09/14/23 10:59 e-Cigarette/Vaping Use Never Used 09/14/23 10:55 Thrive Assessment: Date of Thrive Assessment Date Thrive assessed 06/28/23 09/14/23 10:55 Const General: no acute distress HENMT Head: Yes normal to inspection Ears: hearing grossly normal bilaterally Mouth: Normal oral and palatal mucosa present Eyes General: appearance normal, both eyes and all related structures Neck Neck: Yes supple Resp Effort & Inspection: normal respiratory effort Auscultation: clear to auscultation bilaterally Cardio Rhythm: regular rhythm Heart sounds: S1 normal heart sound present and S2 normal heart sound present GI Inspection: Yes normal to inspection Palpation (GI): Soft to palpation Percussion: Yes normal to percussion Auscultation: normal bowel sounds Assessment and Plan Assessment & Plan (1) HTN (hypertension): Code(s): I10 - Essential (primary) hypertension Plan: Continue current medications (2) Hyperlipidemia: Code(s): E78.5 - Hyperlipidemia, unspecified Plan: Continue statin (3) Rheumatoid arthritis: Code(s): M06.9 - Rheumatoid arthritis, unspecified Plan: Continue methotrexate and meloxicam (4) Overweight: Code(s): E66.3 - Overweight Orders: Orders Complete Blood Count Auto Diff 3 Months E78.5 - Hyperlipidemia, unspecified, I10 - Essential (primary) hypertension TSH reflex Free T4 3 Months E78.5 - Hyperlipidemia, unspecified, I10 - Essential (primary) hypertension Comprehensive [place]. Panel Fast 3 Months E78.5 - Hyperlipidemia, unspecified, I10 - Essential (primary) hypertension Lipid Panel 3 Months E78.5 - Hyperlipidemia, unspecified, I10 - Essential (primary) hypertension Medications: Changed From semaglutide (Ozempic) for 4 weeks 0.25 mg (0.368 mL) subcut QWEEK 3 mL 2RF To Ozempic (semaglutide) 0.5 mg (0.736 mL) subcut QWEEK 3 mL 2RF NS Patient Instructions: Patient will continue with the weight loss program, will increase Ozempic to 0.5 mg weekly. Coding Level of Care Code Est Pt Level 4 (07366) Diagnoses HTN (hypertension) I10 Hyperlipidemia E78.5 Rheumatoid arthritis M06.9 Overweight E66.3
[2023-09-14 10:53] VITALS: BP 118/70; PULSE 58; O2SAT 97; BMI 29.4
== END 2023-09-14 15:11 | disposition home or self-care (01) ==
PROVIDERS: PCP Internal Medicine; Visit Provider Internal Medicine
DX: I10 Essential (primary) hypertension (principal); E78.5 Hyperlipidemia, unspecified; M06.9 Rheumatoid arthritis, unspecified; E66.3 Overweight
CPT/HCPCS: 99214

== ENCOUNTER 2023-10-04 14:57 | Outpatient (AMB) | payer MEDICARE, BC, SELFPAY ==
[2023-10-04 15:07] VITALS: BMI 29.4
--- NOTE | 2023-10-04 15:07 | MHC.OFFVIS ---
Vital Signs 10/04/23 15:07 Height 5 ft 3 in Weight 166 lb BMI 29.4 Intake Visit Reasons: CRYSTAL CUTTER Varicose Veins , Self Referral Intake Note: CRYSTAL CUTTER for bilateral LE VV, Left Left LE worse than Right LE. 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 Pt states did the venous procedures and dermatology helped the rupturing VV by freezing the area. Does have some bilateral LE swelling and rope like VV. Accompanied by: Self / Same As Patient Allergies latex Allergy (Unknown, Verified 10/04/23 15:13) unknown bee pollen Allergy (Verified 10/04/23 15:13) hives, swelling HPI HPI CRYSTAL CUTTER Varicose Veins , Self Referral: Details: Very pleasant 72-year-old patient presents for painful varicose veins. Complaints include pain over varicosities, swelling of lower extremities, cramping, fatigue, and heaviness of the lower extremities. It has been affecting there daily activities including walking. It is noted more so in left leg. She in particular notices a significant varicosities over the left knee and calf. They have been a source of discomfort for her. Patient reports prior microphlebectomy by Dr. Tanvir Martinez at [facility] and Dr. Lisa with previous venous ablation is. What exactly was done is unknown but do suspect great saphenous veins were ablated. Patient denies any history of DVT/ PE. Patient denies any history of phlebitis. Trial of compression includes - [id number] They now present for vascular evaluation regarding their varicose veins. [facility] Medical History Venous insufficiency of both lower extremities COPD (chronic obstructive pulmonary disease) Hyperlipidemia Radiculopathy MCNEIL (dyspnea on exertion) Dysplastic nevi Postmenopausal Schatzki's ring Annual physical exam Headache HTN (hypertension) Rheumatoid arthritis Asthma Surgical History History of right knee surgery H/O colonoscopy No pertinent past surgical history Family History Father History of heart attack CVD (cardiovascular disease) Rheumatoid arthritis Mother Gout Social History Housing: House Alcohol intake: current Alcohol intake frequency: does not drink Patient Tobacco Use Status: Never used Tobacco e-Cigarette/Vaping Use: Never Used Second Hand Smoke Exposure: No service: No Current occupational status: retired Cognitive needs: No Hearing needs: No Vision needs: Yes Review of Systems Const Reports as per HPI ENT Reports no additional complaints Card Denies chest pain, Denies chest pain at rest and Denies chest pain with activity Resp Denies chest congestion and Denies cough GI Reports no additional complaints Musc Details: pain over varicosities, aching of lower extremities, swelling, cramping, heaviness and tiredness, itching Denies abnormal gait Skin/Breast Reports pruritus and Denies wounds Neuro Reports no additional complaints and Denies abnormal gait Psych Denies no additional complaints Physical Exam Vital Signs: BMI result Body Mass Index 29.4 Const General: cooperative, healthy appearing and comfortable Orientation/consciousness: oriented to person, oriented to place and oriented to time Neck Carotids: no bruits Chest Chest palpation & inspection: normal inspection of the chest and normal palpation of entire chest wall Resp Effort & Inspection: normal respiratory effort and able to speak in complete sentences Cardio Rate: regular rate Heart sounds: S1 normal heart sound present and S2 normal heart sound present Peripheral pulses: Peripheral pulses 2+ throughout GI Inspection: Yes normal to inspection Skin Other: +2 edema, large rope-like varicosities greater than 4 mm left knee and calf CEAP Classification C4 - skin color changes Ep - Etiology Primary As - superficial veins P - reflux General skin exam: dry skin Neuro General: oriented to person, oriented to place and oriented to time Extrem Right lower extremity: full ROM, normal capillary refill and edema Left lower extremity: full ROM, normal capillary refill and edema Psych Mental Status: mental status grossly normal Assessment & Plan Assessment & Plan (1) Varicose veins of left lower extremity with inflammation: Code(s): I83.12 - Varicose veins of left lower extremity with inflammation Category: Medical Plan: In short, the patient has evidence of venous insufficiency. I have discussed the pathophysiology with the patient. In addition I have provided informational material regarding venous disease to the patient. We have discussed conservative measures including compression, elevation, and exercise. I have also provided a handout regarding appropriate use of compression stockings and where to purchase good compression stockings as well. I have taken the liberty of ordering venous insufficiency testing with the patient. They will follow up with me after testing. The patient had an opportunity to ask questions regarding the treatment plan. All questions were answered. Imaging studies, laboratory studies and physical exam results were discussed and reviewed in detail. No major barriers to understanding were identified. The patient expressed understanding and agreement with the above treatment plan. The patient is aware they should contact our office by phone for worsening of the current condition or the appearance of new symptoms. Thank you for allowing me to participate in the vascular care of this patient. If you have any questions or concerns regarding the treatment for the above condition please do not hesitate to contact me. The office telephone contact is [phone]. This note is constructed using voice recognition software. While every effort has been made to ensure accuracy, district customs director errors may have been included. Thank you for allowing me to participate in the care of your patient. Yours sincerely, Zi Ramires MD, FACS, R.P.V.I. Orders: Orders US venous duplex LE BI 1 Week I83.12 - Varicose veins of left lower extremity with inflammation Coding Level of Care Code New Pt Level 4 (06265) Diagnoses Varicose veins of left lower extremity with inflammation I83.12
== END 2023-10-04 16:04 | disposition home or self-care (01) ==
PROVIDERS: PCP Internal Medicine; Visit Provider Surgery Vascular Surgery
DX: I83.12 Varicose veins of left lower extremity with inflammation (principal)
CPT/HCPCS: 99203

== ENCOUNTER → 2023-10-04 14:57 | Outpatient (BNVA) | payer BC, SELFPAY | PROVIDERS: PCP Internal Medicine; Visit Provider Surgery Vascular Surgery ==

== ENCOUNTER 2023-10-22 10:15 | Outpatient (REF) | payer MEDICARE, BC, SELFPAY ==
--- NOTE | ~2023-10-22 | US_ITS ---
EXAMINATION: US LOWER EXTREMITY VENOUS (REFLUX EXAM), BILATERAL CLINICAL INDICATION: Left lower extremity varicose veins COMPARISON: None. TECHNIQUE: Color flow triplex imaging and compression Doppler was performed to evaluate both the deep and the superficial systems bilaterally. To evaluate the superficial system, the examination was performed in the upright position. Color-flow Doppler ultrasound and compression ultrasound were utilized. In addition, maneuvers were utilized to demonstrate reflux. FINDINGS: 1. DEEP VENOUS ULTRASOUND OF THE RIGHT LOWER EXTREMITY: Common Femoral Vein: Compressible, normal respiratory variation and augmented flow. Femoral Vein: Compressible, normal color flow and augmentation. Popliteal Vein: Compressible, normal augmentation. Deep Reflux: There is no evidence of reflux in the deep system in either the common femoral vein, superficial femoral or the popliteal vein. There is no evidence of a Foster's cyst. 2. SUPERFICIAL ULTRASOUND WITH DOPPLER OF RIGHT LOWER EXTREMITY: GREAT SAPHENOUS VEIN: Saphenofemoral Junction: 0.7 cm; Reflux: 0 ms Proximal Thigh: 0.5 cm; Reflux: 0 ms Mid Thigh: 0.2 cm; Reflux: 2736 ms Above Knee: 0.3 cm; Reflux: 0 ms At Knee: 0.3 cm; Reflux: 0 ms Below Knee: 0.2 cm; Reflux: 2820 ms Mid Calf: 0.1 cm; Reflux: 3076 ms Ankle: 0.1 cm; Reflux: 0 ms DUPLICATED LATERAL GREAT SAPHENOUS VEIN: Saphenofemoral Junction: 0.3 cm; Reflux: 0 ms Mid Thigh: 0.3 cm; Reflux: 0 ms SMALL SAPHENOUS VEIN: Saphenopopliteal Junction: 0.3 cm; Reflux: 0 ms Proximal: 0.3 cm; Reflux: 0 ms Distal: 0.3 cm; Reflux: 0 ms VEIN OF GIACOMINI: Size: 0.3; Reflux: 0 ms PERFORATORS: Location: Mid SSV Size: 0.3; Reflux: 0 ms Location: Distal thigh Size: 0.1; Reflux: 0 ms Location: Proximal calf Size: 0.1; Reflux: 0 ms Location: Proximal calf Size: 0.1; Reflux: 0 ms Location: Distal calf Size: 0.2; Reflux: 1084 ms VARICOSITIES: Location: Proximal SSV Size: 0.3; Reflux: 1216 ms Location: Mid SSV Size: 0.3; Reflux: 940 ms Location: At knee Size: 0.4; Reflux: 2892 ms 3. DEEP VENOUS ULTRASOUND OF THE LEFT LOWER EXTREMITY: Common Femoral Vein: Compressible, normal respiratory variation and augmented flow. Femoral Vein: Compressible, normal color flow and augmentation. Popliteal Vein: Compressible, normal augmentation. Deep Reflux: There is no evidence of reflux in the deep system in either the common femoral vein, superficial femoral or the popliteal vein. There is no evidence of a Foster's cyst. 4. SUPERFICIAL ULTRASOUND WITH DOPPLER OF LEFT LOWER EXTREMITY: GREAT SAPHENOUS VEIN: Saphenofemoral Junction: 1.0 cm; Reflux: 0 ms Proximal Thigh: 0.5 cm; Reflux: 680 ms Mid Thigh: 0.3 cm; Reflux: 0 ms Above Knee: 0.2 cm; Reflux: 0 ms At Knee: 0..2 cm; Reflux: 0 ms Below Knee: Not visualized Mid Calf: 0.2 cm; Reflux: 0 ms Ankle: 0.2 cm; Reflux: 0 ms DUPLICATED LATERAL GREAT SAPHENOUS VEIN: Saphenofemoral Junction: 0.3 cm; Reflux: 0 ms Mid Thigh: 0.2 cm; Reflux: 1856 ms SMALL SAPHENOUS VEIN: Saphenopopliteal Junction: 0.3 cm; Reflux: 0 ms Proximal: 0.09 cm; Reflux: 0 ms Distal: 0.3 cm; Reflux: 0 ms PERFORATORS: Location: Mid SSV Size: 0.4; Reflux: 0 ms Location: Mid thigh Size: 0.3; Reflux: 0 ms Location: Midcalf Size: 0.3; Reflux: 0 ms VARICOSITIES: Location: Mid SSV Size: 0.4; Reflux: 0 ms Location: Mid ASV Size: 0.2; Reflux: 2176 ms Location: Proximal thigh Size: 0.3; Reflux: 1888 ms Location: Proximal thigh Size: 0.3; Reflux: 2340 ms Location: Distal thigh (appears closed) Size: 0.4; Reflux: 0 ms Location: Proximal calf Size: 0.3; Reflux: 0 ms Location: At knee Size: 0.4; Reflux: 2892 ms Location: Mid calf Size: 0.3; Reflux: 2392 ms US/US venous duplex LE BI IMPRESSION: 1. No evidence of deep venous thrombosis. 2. Multifocal areas of incompetence in the right great saphenous vein at the level of the mid thigh and proximal and mid calf with reflux measuring up to 3076 ms. 3. Focal incompetence of the left great saphenous vein at the level of the proximal thigh with reflux measuring 680 ms at that level. The remaining vein appears competent. 4. Incompetent left duplicated lateral great saphenous vein at the level of the mid thigh with reflux measuring 1856 ms. 5. Competent right duplicated lateral great saphenous vein and bilateral small saphenous veins. 6. Multiple bilateral varicose veins, greater on the left, measuring 3 to 4 mm on the right with reflux measuring up to 2892 ms and 2 to 4 mm on the left with reflux measuring up to 2892 ms. 7. Multiple perforators in the bilateral lower extremities, one of which demonstrates incompetence in the right distal calf with reflux measuring 1084 ms.
== END 2023-10-22 10:16 | disposition home or self-care (01) ==
LOC: HO.US 10:15
PROVIDERS: PCP Internal Medicine; Visit Provider Surgery Vascular Surgery
DX: I83.12 Varicose veins of left lower extremity with inflammation (principal)
CPT/HCPCS: 93970

== ENCOUNTER 2023-11-27 15:03 | Outpatient (AMB) | payer MEDICARE, SELFPAY ==
--- NOTE | 2023-11-27 15:05 | MHC.OFFVIS ---
Vital Signs 11/27/23 15:06 Height 5 ft 3 in Weight 166 lb BMI 29.4 Intake Visit Reasons: follow up s/p US 10/22/23 Intake Note: follow up 10/22/23 w/ hx of bilateral ablations & micros w/ . 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 Pt states that she has large rope like VV w/ pain. Wears compression daily. Accompanied by: Self / Same As Patient Allergies latex Allergy (Unknown, Verified 11/27/23 15:11) unknown bee pollen Allergy (Verified 11/27/23 15:11) hives, swelling HPI HPI follow up s/p 10/22/23: Details: Complex 73-year-old female presents for follow-up evaluation regarding venous insufficiency. It appears that she has had several prior procedures and has developed new varicosities in the left lower extremity. In particular she has this large varicosity over the anterior aspect of the knee. This appears to be a source of pain and discomfort for her. She now presents to us for follow-up with venous insufficiency testing. [facility] Medical History Venous insufficiency of both lower extremities COPD (chronic obstructive pulmonary disease) Hyperlipidemia Radiculopathy MCNEIL (dyspnea on exertion) Dysplastic nevi Postmenopausal Schatzki's ring Annual physical exam Headache HTN (hypertension) Rheumatoid arthritis Asthma Surgical History History of right knee surgery H/O colonoscopy No pertinent past surgical history Family History Father History of heart attack CVD (cardiovascular disease) Rheumatoid arthritis Mother Gout Social History Housing: House Alcohol intake: current Alcohol intake frequency: does not drink Patient Tobacco Use Status: Never used Tobacco e-Cigarette/Vaping Use: Never Used Second Hand Smoke Exposure: No service: No Current occupational status: retired Cognitive needs: No Hearing needs: No Vision needs: Yes Review of Systems Const Reports as per HPI ENT Reports no additional complaints Card Denies chest pain, Denies chest pain at rest and Denies chest pain with activity Resp Denies chest congestion and Denies cough GI Reports no additional complaints Musc Details: pain over varicosities, aching of lower extremities, swelling, cramping, heaviness and tiredness, itching Denies abnormal gait Skin/Breast Reports pruritus and Denies wounds Neuro Reports no additional complaints and Denies abnormal gait Psych Denies no additional complaints Physical Exam Vital Signs: BMI result Body Mass Index 29.4 Const General: cooperative, healthy appearing and comfortable Orientation/consciousness: oriented to person, oriented to place and oriented to time Neck Carotids: no bruits Chest Chest palpation & inspection: normal inspection of the chest and normal palpation of entire chest wall Resp Effort & Inspection: normal respiratory effort and able to speak in complete sentences Cardio Rate: regular rate Heart sounds: S1 normal heart sound present and S2 normal heart sound present Peripheral pulses: Peripheral pulses 2+ throughout GI Inspection: Yes normal to inspection Skin Other: +2 edema, large rope-like varicosities greater than 4 mm left calf and thigh CEAP Classification C4 - skin color changes Ep - Etiology Primary As - superficial veins P - reflux General skin exam: dry skin Neuro General: oriented to person, oriented to place and oriented to time Extrem Right lower extremity: full ROM, normal capillary refill and edema Left lower extremity: full ROM, normal capillary refill and edema Psych Mental Status: mental status grossly normal Results Reviewed Results Reviewed: Brief summary of venous insufficiency testing is as follows: right great saphenous vein: Portions positive right small saphenous vein: negative right accessory vein: none present left great saphenous vein: negative left small saphenous vein: Positive left accessory vein: none present Please note there is no evidence of any venous aneurysms or significant tortuosity Assessment & Plan Assessment & Plan (1) Varicose veins of left lower extremity with inflammation: Code(s): I83.12 - Varicose veins of left lower extremity with inflammation Category: Medical Plan: This patient has varicose veins with inflammation. They continue to be a source of discomfort for the patient. The patient has tried conservative treatment with compression, leg elevation and exercise program for over 3 months time. They have been compliant with all treatment. This has provided minimal relief for the patient. I do not anticipate this course of treatment will alter the underlying etiology. The patient has been scheduled for lower extremity venous treatment inclusive of --- left great saphenous vein Cyanoacralate ablation. Risks, benefits, and complications of this procedure has been discussed in detail with the patient including but not limited to bleeding, infection, and the development of a DVT. The patient has demonstrated a clear understanding and has consented. We will schedule the patient as soon as possible. Thank you for allowing us to participate in this patient's care. If there are any questions or concerns please do not hesitate to contact us. Coding Level of Care Code Est Pt Level 4 (32396) Diagnoses Varicose veins of left lower extremity with inflammation I83.12
[2023-11-27 15:06] VITALS: BMI 29.4
== END 2023-11-27 15:59 | disposition home or self-care (01) ==
PROVIDERS: PCP Internal Medicine; Visit Provider Surgery Vascular Surgery
DX: I83.12 Varicose veins of left lower extremity with inflammation (principal)
CPT/HCPCS: 99214

== ENCOUNTER → 2023-11-27 15:03 | Outpatient (BNVA) | payer BC, SELFPAY | PROVIDERS: PCP Internal Medicine; Visit Provider Surgery Vascular Surgery ==

== ENCOUNTER 2023-12-21 11:30 | Outpatient (REF) | payer MEDICARE, SELFPAY ==
[2023-12-21 13:56] LABS: MANUAL DIFF FLAG NO
[2023-12-21 14:03] LABS: Basophils Percent Auto 0.6 % (0-2); Eosinophils Absolute Auto 0.1 X10*3/uL (0.0-0.4); Eosinophils Percent Auto 2.3 % (0-4); Hematocrit 38.3 % (37.0-47.0); Imm Gran Abs Auto 0.01 X10*3/uL (0.00-0.03); Imm Gran Pct Auto 0.2 % (0.0-0.4); Lymphocytes Absolute Auto 1.7 X10*3/uL (1.2-4.9); Lymphocytes Percent Auto 32.8 % (20-40); Mean Corpuscular HGB Conc 33.9 g/dl (31.0-35.0); Mean Corpuscular Hemoglobin 28.8 pg (27.0-33.0); Mean Corpuscular Volume 84.9 fL (80.0-98.0); Mean Platelet Volume 9.4 fL (9.4-12.3); Monocytes Absolute Auto 0.3 X10*3/uL (0.1-1.2); Monocytes Percent Auto 6.1 % (2-11); Neutrophils Absolute Auto 3.1 x10*3/uL (2.0-8.3); Platelet Count 216 X10*3/uL (160-400); Red Blood Count 4.51 X10*6/uL (4.20-5.50); Red Cell Distribution Width 12.6 % (11.0-16.0); White Blood Count 5.3 X10*3/uL (4.8-10.8)
[2023-12-21 14:37] LABS: Rheumatoid Factor 15.9 IU/mL (<15.0)
[2023-12-21 14:43] LABS: Alanine Aminotransferase 21 U/L (0-31); Albumin Level 3.9 g/dL (3.5-5.0); Alkaline Phosphatase 69 U/L (39-117); Anion Gap 11 (12-20); Aspartate Amino Transferase 18 U/L (5-31); Bilirubin Total 0.5 mg/dL (0.0-1.0); Blood Urea Nitrogen 16 mg/dL (9-16); Calcium 9.5 mg/dL (8.4-10.2); Carbon Dioxide 30 mmol/L (22-29); Chloride 106 mmol/L (96-108); Cholesterol 166 mg/dL (<200); Estimated Glomerular Filt Rate > 60; Glucose Fasting 87 mg/dL (60-99); HDL Cholesterol 48 mg/dL (>40); LDL Cholesterol Calculated 102 mg/dL (<100); Potassium 3.6 mmol/L (3.3-5.1); Sodium 143 mmol/L (135-145); Total Protein 6.9 g/dL (6.5-8.0); Triglycerides 83 mg/dL (<150)
[2023-12-21 15:01] LABS: TSH reflex Free T4 1.07 uIU/mL (0.32-4.0)
== END 2023-12-21 11:31 | disposition home or self-care (01) ==
LOC: HO.HMGCLDS 11:30
PROVIDERS: PCP Internal Medicine; Visit Provider Internal Medicine
DX: I10 Essential (primary) hypertension (principal); E78.5 Hyperlipidemia, unspecified; M05.9 Rheumatoid arthritis with rheumatoid factor, unspecified
CPT/HCPCS: 36415; 80053; 80061; 84443; 85025; 86431

== ENCOUNTER 2023-12-24 09:41 | Outpatient (AMB) | payer MEDICARE, SELFPAY ==
[2023-12-24 09:43] VITALS: BP 132/82; PULSE 76; O2SAT 96; BMI 28.5
--- NOTE | 2023-12-24 09:43 | MHC.PC.OV ---
Vital Signs 12/24/23 09:43 Height 5 ft 3 in Weight 161 lb BMI 28.5 BP 132/82 Blood Pressure Location Lt brachial Position Sitting Pulse 76 Pulse Source Pulse Oximeter Pulse Oximetry (%) 96 Oxygen Delivery Method Room Air Intake Visit Reasons: 3 months Follow up Intake Note: Pt is here today for 3 months follow up visit. Pt states that she has been having pain in her joints and swelling in her legs hands. Allergies latex Allergy (Unknown, Verified 12/24/23 09:46) unknown bee pollen Allergy (Verified 12/24/23 09:46) hives, swelling Medication List - Last Reconciled 12/24/23 by Nedra Alexander MD carvedilol (Coreg) 6.25 mg PO BID folic acid 1 mg PO DAILY meloxicam 15 mg PO DAILY methotrexate sodium 7.5 mg (3 x 2.5 mg) PO QWEEK Ozempic (semaglutide) 0.5 mg (0.736 mL) subcut QWEEK NS pravastatin 20 mg PO DAILY triamterene-hydrochlorothiazid 37.5-25 mg 1 tab PO DAILY Tobacco use date assessed: 12/24/23 Fall risk assessment: No Falls in past year Last assessed Fall Risk: 12/24/23 Dental Screening Dental Screen Date: 09/14/23 HPI 3 months Follow up HPI Details Pt presents for f/u HTN, hyperlipid. Pt c/o neck pain and R thumb pain and swelling and has been taking Meloxicam with good relief. Pt f/u with rheumatology. PFSH Medical History Venous insufficiency of both lower extremities COPD (chronic obstructive pulmonary disease) Hyperlipidemia Radiculopathy MCNEIL (dyspnea on exertion) Dysplastic nevi Postmenopausal Schatzki's ring Annual physical exam Headache HTN (hypertension) Rheumatoid arthritis Asthma Surgical History History of right knee surgery H/O colonoscopy No pertinent past surgical history Family History Father History of heart attack CVD (cardiovascular disease) Rheumatoid arthritis Mother Gout Social History Housing: House Alcohol intake: current Alcohol intake frequency: does not drink Patient Tobacco Use Status: Never used Tobacco e-Cigarette/Vaping Use: Never Used Second Hand Smoke Exposure: No service: No Current occupational status: retired Cognitive needs: No Hearing needs: No Vision needs: Yes Questionnaire Thrive Questionnaire Date Thrive assessed: 06/28/23 LATONYA-7 AMB Questionnaire LATONYA-7 Date LATONYA - 7 assessed: 06/28/23 Source: Developed by Drs. Audi Mae, Lisy Prajapati, Idris Garcia and colleagues, with an educational travis from [employer]. Review of Systems Const All systems reviewed & are unremarkable except as noted in HPI and below ENT Reports no additional complaints Card Reports no additional complaints Resp Reports no additional complaints GI Reports no additional complaints Reports no additional complaints Physical exam (Primary Care) Vital Signs: Last Vital Signs Pulse 76 12/24/23 09:43 BP 132/82 12/24/23 09:43 Pulse Ox 96 12/24/23 09:43 Oxygen Delivery Method Room Air 12/24/23 09:43 BMI result Body Mass Index 28.5 Tobacco/Smoking Status: Tobacco use Status Tobacco use date assessed 12/24/23 12/24/23 09:49 Patient Tobacco Use Status Never used Tobacco 12/24/23 09:49 e-Cigarette/Vaping Use Never Used 12/24/23 09:49 Thrive Assessment: Date of Thrive Assessment Date Thrive assessed 06/28/23 12/24/23 09:49 Const General: no acute distress HENMT Head: Yes normal to inspection Eyes General: appearance normal, both eyes and all related structures Neck Neck: Yes supple Resp Effort & Inspection: normal respiratory effort Auscultation: clear to auscultation bilaterally Cardio Rhythm: regular rhythm Heart sounds: S1 normal heart sound present and S2 normal heart sound present GI Inspection: Yes normal to inspection Palpation (GI): Soft to palpation Percussion: Yes normal to percussion Auscultation: normal bowel sounds Extrem General: Yes full ROM, Yes no joint enlargement and Yes no clubbing, cyanosis or edema Assessment and Plan Assessment & Plan (1) HTN (hypertension): Code(s): I10 - Essential (primary) hypertension Plan: Continue current medications (2) Hyperlipidemia: Code(s): E78.5 - Hyperlipidemia, unspecified Plan: Continue statin (3) Seropositive rheumatoid arthritis: Comment: + RF onset age 47 Code(s): M05.9 - Rheumatoid arthritis with rheumatoid factor, unspecified Plan: Follow-up with rheumatology (4) Osteoarthritis of right knee: Code(s): M17.11 - Unilateral primary osteoarthritis, right knee Plan: Continue regular exercise weight loss discussed with the patient. She would like to try oral semaglutide 7 mg will be started Medications: New semaglutide 7 mg PO DAILY 30 tabs 1RF Discontinued Ozempic (semaglutide) Discontinued Reason: Doctor's Order 0.5 mg (0.736 mL) subcut QWEEK 3 mL 2RF NS Coding Level of Care Code Est Pt Level 4 (66747) Diagnoses HTN (hypertension) I10 Hyperlipidemia E78.5 Seropositive rheumatoid arthritis M05.9 Osteoarthritis of right knee M17.11
== END 2023-12-24 10:19 | disposition home or self-care (01) ==
PROVIDERS: PCP Internal Medicine; Visit Provider Internal Medicine
DX: I10 Essential (primary) hypertension (principal); E78.5 Hyperlipidemia, unspecified; M05.9 Rheumatoid arthritis with rheumatoid factor, unspecified; M17.11 Unilateral primary osteoarthritis, right knee

== ENCOUNTER → 2023-12-24 09:42 | Outpatient (BNVA) | payer MEDICARE, SELFPAY | PROVIDERS: PCP Internal Medicine; Visit Provider Internal Medicine | DX: I10 Essential (primary) hypertension (principal); E78.5 Hyperlipidemia, unspecified; M05.9 Rheumatoid arthritis with rheumatoid factor, unspecified; M17.11 Unilateral primary osteoarthritis, right knee | CPT/HCPCS: 99212 ==

== ENCOUNTER 2023-12-28 11:34 | Outpatient (AMB) | payer MEDICARE, SELFPAY ==
[2023-12-28 11:39] VITALS: BP 130/80; PULSE 83; TEMP 36.7; O2SAT 98; BMI 29.1
--- NOTE | 2023-12-28 11:39 | AM.OFFWIN_ITS ---
Intake Vital Signs 12/28/23 11:39 Height 5 ft 3 in Weight 164 lb 6 oz BMI 29.1 BP 130/80 Blood Pressure Location Rt brachial Position Sitting Pulse 83 Pulse Source Pulse Oximeter Temp 98.1 F Temp Source Oral Pulse Oximetry (%) 98 Oxygen Delivery Method Room Air Intake Visit Reasons: EP-rt knee swollen and pain Intake Note: pt is here for right knee swelling with pain Patient Tobacco Use Status: Never used Tobacco Accompanied by: Self / Same As Patient Allergies latex Allergy (Unknown, Verified 12/28/23 11:39) unknown bee pollen Allergy (Verified 12/28/23 11:39) hives, swelling Do you need a note to return to daycare/school/sports/work: No HPI HPI Comments History of Present Illness Details Patient is a 73-year-old female with a past medical history of rheumatoid arthritis on weekly methotrexate complaining of right lower extremity pain and swelling. She states she measured her right leg yesterday and it was 3 in larger than her left leg. She states she measured around the knee area. She states she took meloxicam yesterday because the pain was so bad she could not even walk, she states today she can walk however she needs a cane because she is in pain. She denies any active cancer, immobilization for a long period of time , recent surgery, recent air travel or long car ride or a previous DVT. She states her mother had a DVT in the past, she can not recall all of the details. She states she does have a history of a Foster's cyst however she states it does not feel like the pain she usually has with her Foster's cyst or her typical arthritis pain. [facility] [place] Medical History Venous insufficiency of both lower extremities COPD (chronic obstructive pulmonary disease) Hyperlipidemia Radiculopathy MCNEIL (dyspnea on exertion) Dysplastic nevi Postmenopausal Schatzki's ring Annual physical exam Headache HTN (hypertension) Rheumatoid arthritis Asthma Surgical History History of right knee surgery H/O colonoscopy No pertinent past surgical history Family History Father History of heart attack CVD (cardiovascular disease) Rheumatoid arthritis Mother Gout Social History Housing: House Alcohol intake: current Alcohol intake frequency: does not drink Patient Tobacco Use Status: Never used Tobacco e-Cigarette/Vaping Use: Never Used Second Hand Smoke Exposure: No service: No Current occupational status: retired Cognitive needs: No Hearing needs: No Vision needs: Yes Review of Systems Const All systems reviewed & are unremarkable except as noted in HPI and below Physical Exam Vital Signs: Last Vital Signs Temp 98.1 F 12/28/23 11:39 Pulse 83 12/28/23 11:39 BP 130/80 12/28/23 11:39 Pulse Ox 98 12/28/23 11:39 Oxygen Delivery Method Room Air 12/28/23 11:39 BMI result Body Mass Index 29.1 Const General: cooperative, healthy appearing, comfortable and no acute distress Orientation/consciousness: patient oriented x3 Limitations: no limitations HEENT Head: Yes normal to inspection Resp Effort & Inspection: normal respiratory effort and able to speak in complete sentences Neuro General: patient oriented x3 Extrem Right lower extremity: hip/thigh Details: swelling (slight) Location: at the mid upper leg and normal ROM; no tenderness, no abrasions, no lacerations, no ecchymosis and no unusual warmth, knee Details: tenderness (posterior), swelling, normal ROM and knee ligament exam normal; no abrasions, no lacerations, no ecchymosis and no unusual warmth and lower leg Details: tenderness Location: of the posterior calf and non-pitting edema; no abrasions, no lacerations, no ecchymosis and no unusual warmth Left lower extremity: normal to inspection Assessment & Plan Assessment & Plan (1) Swelling of right lower extremity: Code(s): M79.89 - Other specified soft tissue disorders Plan: Vital signs are stable and patient is well-appearing, Wells score for DVT gives her 3 points which is high risk so we will do an ultrasound today on her right lower extremity, low suspicion for clot, high suspicion for Foster's cyst. We will call patient with results once the ultrasound is read. Recommended using meloxicam daily until we have the results. (2) Pain of right lower extremity: Code(s): M79.604 - Pain in right leg Plan: See above Plan See above Orders: Orders US venous duplex LE RT Today M79.604 - Pain in right leg, M79.89 - Other specified soft tissue disorders Coding Level of Care Code Est Pt Level 4 (16141) Diagnoses Swelling of right lower extremity M79.89 Pain of right lower extremity M79.604
== END 2023-12-28 11:55 | disposition home or self-care (01) ==
PROVIDERS: PCP Internal Medicine; Visit Provider Physician Assistant
DX: M79.89 Other specified soft tissue disorders (principal); M79.604 Pain in right leg

== ENCOUNTER → 2023-12-28 11:34 | Outpatient (BNVA) | payer MEDICARE, SELFPAY | PROVIDERS: PCP Internal Medicine | DX: R60.0 Localized edema (principal); M79.604 Pain in right leg | CPT/HCPCS: 99212 ==

== ENCOUNTER 2023-12-28 12:59 | Outpatient (REF) | payer MEDICARE, SELFPAY ==
--- NOTE | ~2023-12-28 | US_ITS ---
EXAMINATION: US TRIPLEX LOWER EXTREMITY, RIGHT CLINICAL INFORMATION: History leg pain and swelling. COMPARISON: None available. TECHNIQUE: Color-flow triplex imaging with spectral analysis and compression Doppler were performed on the right lower extremity. FINDINGS: Respiratory variation, normal compression and augmented flow are noted throughout the right lower extremity. The visualized common femoral vein, superficial femoral vein, profunda femoral vein, popliteal vein and midcalf peroneal and posterior tibial venous segments show no evidence of deep venous thrombosis. Complex popliteal cyst measuring 2.9 x 1.4 x 3 cm. US/US venous duplex LE RT IMPRESSION: 1. No evidence of deep venous thrombosis involving the right lower extremity. 2. Complex popliteal cyst measuring 2.9 x 1.4 x 3 cm. Electronically signed by: Robert Montemayor MD 12/28/2023 03:39 PM EDT
== END 2023-12-28 13:00 | disposition home or self-care (01) ==
LOC: HO.HMGCX 12:59
PROVIDERS: PCP Internal Medicine; Visit Provider Physician Assistant
DX: M79.604 Pain in right leg (principal); R60.0 Localized edema
CPT/HCPCS: 93971; 99212

== ENCOUNTER 2023-12-31 15:42 | Outpatient (REF) | payer MEDICARE, SELFPAY ==
[2023-12-31 16:42] LABS: Uric Acid 7.3 mg/dL (2.4-5.7)
[2023-12-31 16:58] LABS: Vitamin D 25-OH Total 56.8 ng/mL (>30)
[2023-12-31 17:05] LABS: Vitamin B12 389 pg/mL (200-900)
== END 2023-12-31 15:43 | disposition home or self-care (01) ==
LOC: HO.LAB 15:42
PROVIDERS: PCP Internal Medicine; Visit Provider Internal Medicine
DX: I10 Essential (primary) hypertension (principal); E78.5 Hyperlipidemia, unspecified; M17.11 Unilateral primary osteoarthritis, right knee; E55.9 Vitamin D deficiency, unspecified
CPT/HCPCS: 36415; 82306; 82607; 84550

== ENCOUNTER 2024-01-24 08:09 | Outpatient (AMB) | payer MEDICARE, SELFPAY ==
--- NOTE | 2024-01-24 08:20 | A.OFFVIS_ITS ---
Vital Signs 01/24/24 08:24 Height 5 ft 3 in Weight 163 lb 9.328 oz BMI 29.0 BP 100/64 Blood Pressure Location Rt brachial Position Sitting Pulse 68 Pulse Source Pulse Oximeter Pulse Oximetry (%) 95 Oxygen Delivery Method Room Air Intake Visit Reasons: RA/lvm Intake Note: Patient presents for RA. Allergies latex Allergy (Unknown, Verified 01/24/24 08:24) unknown bee pollen Allergy (Verified 01/24/24 08:24) hives, swelling Medication List - Last Reconciled 01/24/24 by Kelvin Haider MD carvedilol (Coreg) 6.25 mg PO BID folic acid 1 mg PO DAILY meloxicam 15 mg PO DAILY methotrexate sodium 7.5 mg (3 x 2.5 mg) PO QWEEK pravastatin 20 mg PO DAILY semaglutide 7 mg PO DAILY triamterene-hydrochlorothiazid 37.5-25 mg 1 tab PO DAILY HPI Comments Details: This is a 73-year-old female with seropositive RA who presents for follow-up. She states that she was doing reasonably well until 920 when she had abrupt onset of right knee pain and swelling. She could not walk. She went to her PCP, venous duplex was done which did not show a DVT but showed a popliteal cyst in the right knee. She does not recall whether the skin was erythematous. She was prescribed prednisone taper by her PCP with about 50% improvement. She states that the knee is still swollen. She has difficulty walking. She is walking with a cane. [facility] Medical History Venous insufficiency of both lower extremities COPD (chronic obstructive pulmonary disease) Hyperlipidemia Radiculopathy MCNEIL (dyspnea on exertion) Dysplastic nevi Postmenopausal Schatzki's ring Annual physical exam Headache HTN (hypertension) Rheumatoid arthritis Asthma Surgical History History of right knee surgery H/O colonoscopy No pertinent past surgical history Family History Father History of heart attack CVD (cardiovascular disease) Rheumatoid arthritis Mother Gout Social History Housing: House Alcohol intake: current Alcohol intake frequency: does not drink Patient Tobacco Use Status: Never used Tobacco e-Cigarette/Vaping Use: Never Used Second Hand Smoke Exposure: No service: No Current occupational status: retired Cognitive needs: No Hearing needs: No Vision needs: Yes Review of Systems Musc Reports arthralgias, Reports joint swelling and Reports limited range of motion Physical Exam Vital Signs: Last Vital Signs Pulse 68 01/24/24 08:24 BP 100/64 01/24/24 08:24 Pulse Ox 95 01/24/24 08:24 Oxygen Delivery Method Room Air 01/24/24 08:24 BMI result Body Mass Index 29.0 Const General: cooperative, healthy appearing and comfortable Nutritional Appearance: obese Orientation/consciousness: patient oriented x3 Limitations: no limitations HEENT Head: Yes normocephalic and Yes atraumatic Mouth: moist mucous membranes Resp Effort & Inspection: normal respiratory effort and able to speak in complete sentences Cardio Rate: regular rate Rhythm: regular rhythm GI Inspection: No distended Palpation (GI): Soft to palpation and nontender Neuro General: patient oriented x3 Extrem Other: Mild osteoarthritic changes of both hands with no active synovitis Normal nailfold capillaroscopy Right knee swelling, mild warmth, pain with range of motion, no erythema Assessment & Plan Assessment & Plan (1) Seropositive rheumatoid arthritis: Comment: + RF onset age 47 Code(s): M05.9 - Rheumatoid arthritis with rheumatoid factor, unspecified Category: Medical Plan: This is a 73-year-old female with seropositive RA who presents for follow-up. She is on methotrexate 7.5 mg weekly. She is having right knee swelling and pain. Venous duplex ruled out DVT. Ddx gout versus pseudogout needs to be ruled out. Very low suspicion of septic arthritis as there is no fever or tachycardia. I think however that this is likely an osteoarthritic flare versus an RA flare. She patient states that she already has an appointment with Orthopedics today for a knee injection. I suggest sending the fluid out for cell count, crystal analysis as well as culture + steroid injection Continue methotrexate 7.5 mg weekly plus folic acid daily Labs before next visit in 6 months. 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: Code(s): Z79.631 - senior living (current) use of antimetabolite agent Category: Medical Plan: Monitor safety labs Plan I spent 30 minutes reviewing patient's chart, evaluating patient, ordering diagnostic workup, counseling patient and documenting in the chart Orders: Orders Erythrocyte Sedimentation Rate 6 Months M05.9 - Rheumatoid arthritis with rheumatoid factor, unspecified, Z79.631 - terminal make up operator (current) use of antimetabolite agent Complete Blood Count Auto Diff 6 Months M05.9 - Rheumatoid arthritis with rheumatoid factor, unspecified, Z79.631 - senior living (current) use of antimetabolite agent Comprehensive Met. Panel 6 Months M05.9 - Rheumatoid arthritis with rheumatoid factor, unspecified, Z79.631 - terminal make up operator (current) use of antimetabolite agent C Reactive Protein 6 Months M05.9 - Rheumatoid arthritis with rheumatoid factor, unspecified, Z79.631 - terminal make up operator (current) use of antimetabolite agent Medications: Discontinued prednisone Discontinued Reason: Doctor's Order 20 mg PO DAILY 7 tabs 0RF Coding Level of Care Code Est Pt Level 4 (34430) Complex EM visit Add On G2211 Diagnoses Seropositive rheumatoid arthritis M05.9 senior living methotrexate user Z79.631
[2024-01-24 08:24] VITALS: BP 100/64; PULSE 68; O2SAT 95; BMI 29.0
== END 2024-01-24 08:59 | disposition home or self-care (01) ==
PROVIDERS: PCP Internal Medicine; Visit Provider Student in an Organized Health Care Education/Training Program
DX: M05.79 Rheumatoid arthritis with rheumatoid factor of multiple sites without organ or systems involvement (principal); Z79.631 Long term (current) use of antimetabolite agent
CPT/HCPCS: 99214; G2211

== ENCOUNTER → 2024-01-24 08:09 | Outpatient (BNVA) | payer MEDICARE, SELFPAY | PROVIDERS: PCP Internal Medicine; Visit Provider Student in an Organized Health Care Education/Training Program | DX: M25.561 Pain in right knee (principal); M05.9 Rheumatoid arthritis with rheumatoid factor, unspecified; Z79.631 Long term (current) use of antimetabolite agent | CPT/HCPCS: 99212 ==

== ENCOUNTER 2024-01-24 09:21 | Outpatient (AMB) | payer MEDICARE, SELFPAY ==
[2024-01-24 09:27] VITALS: BMI 28.9
--- NOTE | 2024-01-24 09:27 | MHC.OFFVIS ---
Vital Signs 01/24/24 09:27 Height 5 ft 3 in Weight 163 lb BMI 28.9 Intake Visit Reasons: Right knee pain Intake Note: Arleen is a 73 year old female who presents with complaints of progressively worsening right knee pain. She describes her pain as sharp nature. Her pain has gotten worse over the last 6 months in spite of continued non operative treatments. She has had cortisone injections. The most recent cortisone injection gave her no relief. She also had a Synvisc-One viscosupplementation injection given into her right knee last year. She got very good relief from that injection. She has failed the last 3 months of conservative treatment which has included a home exercise program, meloxicam, Tylenol and topical creams. The patient states that her right knee pain is now interfering with her activities of daily living and her ability to sleep well through the night. The patient wishes to hold off on right total knee replacement surgery for as long as possible. Allergies latex Allergy (Unknown, Verified 01/24/24 09:28) unknown bee pollen Allergy (Verified 01/24/24 09:28) hives, swelling Medication List - Last Reconciled 01/24/24 by Herbert Clark MD carvedilol (Coreg) 6.25 mg PO BID folic acid 1 mg PO DAILY meloxicam 15 mg PO DAILY methotrexate sodium 7.5 mg (3 x 2.5 mg) PO QWEEK pravastatin 20 mg PO DAILY semaglutide 7 mg PO DAILY triamterene-hydrochlorothiazid 37.5-25 mg 1 tab PO DAILY [facility] Medical History Venous insufficiency of both lower extremities COPD (chronic obstructive pulmonary disease) Hyperlipidemia Radiculopathy MCNEIL (dyspnea on exertion) Dysplastic nevi Postmenopausal Schatzki's ring Annual physical exam Headache HTN (hypertension) Rheumatoid arthritis Asthma Surgical History History of right knee surgery H/O colonoscopy No pertinent past surgical history Family History Father History of heart attack CVD (cardiovascular disease) Rheumatoid arthritis Mother Gout Social History Housing: House Alcohol intake: current Alcohol intake frequency: does not drink Patient Tobacco Use Status: Never used Tobacco e-Cigarette/Vaping Use: Never Used Second Hand Smoke Exposure: No service: No Current occupational status: retired Cognitive needs: No Hearing needs: No Vision needs: Yes Physical Exam Vital Signs: BMI result Body Mass Index 28.9 Const Other: Well-nourished well-developed very friendly female awake alert and oriented x3 in no acute distress Extrem Other: Bilateral lower extremity examination shows good capillary refill, no skin lesions noted, normal sensation light touch Right knee examination shows a minimal effusion, palpable crepitus with range of motion, pain with range of motion, range of motion from -3 degrees to 115 degrees, no instability Results Reviewed Results Reviewed: X-rays of the patient's right knee taken previously show joint space narrowing, subchondral sclerosis, no acute bony abnormalities Assessment & Plan Assessment & Plan (1) Right knee pain: Code(s): M25.561 - Pain in right knee Category: Medical Plan Ms. Noonan presents with progressively worsening right knee pain due to osteoarthritis. I had a lengthy discussion with the patient regarding the treatment options. She wishes to hold off on right total knee replacement surgery for as long as possible. I agree with this plan. I will see whether or not the patient's insurance company will cover another Synvisc-One viscosupplementation injection. I will see her back once the injection is available. Feel free to call me at any time should questions regarding her orthopedic management arise. I spent 22 minutes in reviewing the patient's records and imaging studies, seeing the patient and documenting in the medical record. Coding Level of Care Code Est Pt Level 3 (89625) Complex EM visit Add On G2211 Diagnoses Right knee pain M25.561
== END 2024-01-24 09:48 | disposition home or self-care (01) ==
PROVIDERS: PCP Internal Medicine; Visit Provider Orthopaedic Surgery
DX: M25.561 Pain in right knee (principal)
CPT/HCPCS: 99213; G2211

== ENCOUNTER → 2024-01-28 15:28 | Outpatient (BNVA) | payer MEDICARE, SELFPAY | PROVIDERS: PCP Internal Medicine; Visit Provider Physician Assistant | DX: M10.061 Idiopathic gout, right knee (principal) | CPT/HCPCS: 99212 ==

== ENCOUNTER → 2024-01-28 15:28 | Outpatient (AMB) | payer MEDICARE, SELFPAY ==
--- NOTE | 2024-01-28 15:30 | AM.OFFWIN_ITS ---
Intake Vital Signs 01/28/24 15:32 Height 5 ft 3 in Weight 163 lb BMI 28.9 BP 130/80 Blood Pressure Location Rt brachial Position Sitting Pulse 73 Pulse Source Pulse Oximeter Pulse Oximetry (%) 98 Oxygen Delivery Method Room Air Intake Visit Reasons: EP pain on RT knee very difficult to walk Intake Note: Patient here for right knee pain that has been present since November. She states Dr. Alexander put on her on steroid which helped some. Patient Tobacco Use Status: Never used Tobacco Allergies latex Allergy (Unknown, Verified 01/28/24 15:34) unknown bee pollen Allergy (Verified 01/28/24 15:34) hives, swelling Do you need a note to return to daycare/school/sports/work: No HPI HPI Comments History of Present Illness Details Patient is a 73-year-old female complaining of continued right knee pain. She has a known Foster's cyst that she saw orthopedics for last week, they offered her joint injection but she declined it. The same day she went to Orthopedics she saw Rheumatology, who noted that her uric acid was high. So she is wondering if this could be a gout flare. She came to this clinic a month ago with the same kind of pain, we did a ultrasound to rule out a DVT he. Her PCP gave her 7 days of 20 mg of prednisone and that seemed to help improve her pain for a little while. [facility] Medical History Venous insufficiency of both lower extremities COPD (chronic obstructive pulmonary disease) Hyperlipidemia Radiculopathy MCNEIL (dyspnea on exertion) Dysplastic nevi Postmenopausal Schatzki's ring Annual physical exam Headache HTN (hypertension) Rheumatoid arthritis Asthma Surgical History History of right knee surgery H/O colonoscopy No pertinent past surgical history Family History Father History of heart attack CVD (cardiovascular disease) Rheumatoid arthritis Mother Gout Social History Housing: House Alcohol intake: current Alcohol intake frequency: does not drink Patient Tobacco Use Status: Never used Tobacco e-Cigarette/Vaping Use: Never Used Second Hand Smoke Exposure: No service: No Current occupational status: retired Cognitive needs: No Hearing needs: No Vision needs: Yes Review of Systems Const All systems reviewed & are unremarkable except as noted in HPI and below Physical Exam Vital Signs: Last Vital Signs Pulse 73 01/28/24 15:32 BP 130/80 01/28/24 15:32 Pulse Ox 98 01/28/24 15:32 Oxygen Delivery Method Room Air 01/28/24 15:32 BMI result Body Mass Index 28.9 Const General: cooperative, healthy appearing, comfortable and no acute distress Orientation/consciousness: patient oriented x3 HEENT Head: Yes normal to inspection General nose exam: Normal external nose present Face and sinus: Yes normal facial exam Eyes General: appearance normal, both eyes and all related structures Neck Neck: Yes normal visual inspection Resp Effort & Inspection: normal respiratory effort and able to speak in complete sentences Neuro General: patient oriented x3 Extrem Other: tenderness swelling of right knee, full ROM, normal capillary refill; no ecchymosis, no signs of infection noted, no erythema Assessment & Plan Assessment & Plan (1) Gout flare: Code(s): M10.9 - Gout, unspecified Qualifiers: Gout site: knee Laterality: right Gout etiology: idiopathic Qualified Code(s): M10.061 - Idiopathic gout, right knee Plan: On 12/30, her uric acid level was elevated at 7.3 so I will treat it as a gout flare as it is extremely tender and painful. Due to an interaction with patient's Coreg, I could not prescribe a typical colchicine treatment for a gout flare but use the recommendations given of 1 dose today and repeating the dose in 3 days. Read rosalio red flag warning signs on if she experienced colchicine toxicity because of the interaction. If she does not have an improvement in her symptoms, highly recommended she call the orthopedics office to schedule the joint injection. This could all be related to her Foster's cyst. Plan See above Medications: New colchicine On day 1 take one tablet, 72 hours take one tablet 0.6 mg PO DAILY 2 tabs 0RF Coding Level of Care Code Est Pt Level 3 (80849) Diagnoses Acute idiopathic gout of right knee M10.061 Gout site: knee Laterality: right Gout etiology: idiopathic
[2024-01-28 15:32] VITALS: BP 130/80; PULSE 73; O2SAT 98; BMI 28.9
== END ==
PROVIDERS: PCP Internal Medicine; Visit Provider Physician Assistant
DX: M10.061 Idiopathic gout, right knee (principal)

== ENCOUNTER 2024-03-03 08:42 | Outpatient (AMB) | payer MEDICARE, SELFPAY ==
[2024-03-03 08:46] VITALS: BMI 28.9
--- NOTE | 2024-03-03 08:46 | A.OFFVIS_ITS ---
Vital Signs 03/03/24 08:46 Height 5 ft 3 in Weight 163 lb BMI 28.9 Intake Visit Reasons: Right knee pain Intake Note: Arleen is a 73 year old female who presents with complaints of progressively worsening right knee pain. She describes her pain as sharp in nature. Her pain has gotten worse over the last 6 months in spite of continued non operative treatments. She has failed the last 3 months of conservative treatment which has consisted of a physical therapy program, Tylenol and anti-inflammatory medicines. She has had viscosupplementation injections which gave her fairly good relief. She has also had cortisone injections. The most recent cortisone injection gave her no relief. She wishes to hold off on total knee replacement surgery if at all possible. Allergies latex Allergy (Unknown, Verified 03/03/24 08:47) unknown bee pollen Allergy (Verified 03/03/24 08:47) hives, swelling Medication List - Last Reconciled 03/03/24 by Herbert Clark MD carvedilol (Coreg) 6.25 mg PO BID colchicine 0.6 mg PO DAILY folic acid 1 mg PO DAILY meloxicam 15 mg PO DAILY methotrexate sodium 7.5 mg (3 x 2.5 mg) PO QWEEK pravastatin 20 mg PO DAILY semaglutide 7 mg PO DAILY triamterene-hydrochlorothiazid 37.5-25 mg 1 tab PO DAILY [facility] Medical History (Updated 01/29/24 @ 07:51 by Kelvin Haider MD) Venous insufficiency of both lower extremities COPD (chronic obstructive pulmonary disease) Hyperlipidemia Radiculopathy MCNEIL (dyspnea on exertion) Dysplastic nevi Postmenopausal Schatzki's ring Annual physical exam Headache HTN (hypertension) Rheumatoid arthritis Asthma Surgical History History of right knee surgery H/O colonoscopy No pertinent past surgical history Family History Father History of heart attack CVD (cardiovascular disease) Rheumatoid arthritis Mother Gout Social History Housing: House Alcohol intake: current Alcohol intake frequency: does not drink Patient Tobacco Use Status: Never used Tobacco e-Cigarette/Vaping Use: Never Used Second Hand Smoke Exposure: No service: No Current occupational status: retired Cognitive needs: No Hearing needs: No Vision needs: Yes Physical Exam Vital Signs: BMI result Body Mass Index 28.9 Const Other: Well-nourished well-developed very friendly female awake alert and oriented x3 in no acute distress Extrem Other: Bilateral lower extremity examination shows good capillary refill, no skin lesions noted, normal sensation light touch Right knee examination shows a minimal effusion, palpable crepitus with range of motion, pain with range of motion, range of motion from -3 degrees to 115 degrees, no instability Office Procedures AMB Joint Injection/Aspiration Joint Injection/Aspiration Primary Site: right knee Prep: site was prepped using aseptic technique Injected: 60 mg of (Durolane viscosupplementation) and 1% plain lidocaine Procedure: The patient tolerated the procedure well Coding - Large joint Procedure code (CPT) selection complete Results Reviewed Results Reviewed: X-rays of the patient's right knee taken previously show joint space narrowing, subchondral sclerosis, no acute bony abnormalities Assessment & Plan Assessment & Plan (1) Osteoarthritis of right knee: Code(s): M17.11 - Unilateral primary osteoarthritis, right knee Category: Medical (2) Right knee pain: Code(s): M25.561 - Pain in right knee Category: Medical Plan Ms. Noonan presents with right knee pain due to osteoarthritis. I had a lengthy discussion with the patient regarding the treatment options. The risks and benefits of a right knee Durolane viscosupplementation injection were discussed at length with the patient. The patient wished to proceed with the injection. She tolerated the injection well. She will continue with her home exercise program. She will contact me prior to her follow-up appointment in 3 months should any questions or concerns arise. Feel free to call me at any time should questions regarding her orthopedic management arise. I spent 20 minutes in reviewing the patient's records and imaging studies, seeing the patient and documenting in the medical record. Orders: Orders AMB Joint Injection/Aspiration Today M17.11 - Unilateral primary osteoarthritis, right knee Coding Level of Care Code Est Pt Level 3 (93054) Complex EM visit Add On G2211 Diagnoses Osteoarthritis of right knee M17.11 Right knee pain M25.561 CPT Codes Coding - 75784 Large joint: 88735 - Large joint ([id number])
== END 2024-03-03 09:09 | disposition home or self-care (01) ==
PROVIDERS: PCP Internal Medicine; Visit Provider Orthopaedic Surgery
DX: M17.11 Unilateral primary osteoarthritis, right knee (principal)
CPT/HCPCS: 20610; 99213

== ENCOUNTER → 2024-03-03 08:42 | Outpatient (BNVA) | payer MEDICARE, SELFPAY | PROVIDERS: PCP Internal Medicine; Visit Provider Orthopaedic Surgery | DX: M17.11 Unilateral primary osteoarthritis, right knee (principal); M25.561 Pain in right knee | CPT/HCPCS: 20610; 99212; J2003; J7318 ==

== ENCOUNTER 2024-03-24 13:49 | Outpatient (AMB) | payer MEDICARE, SELFPAY ==
--- NOTE | 2024-03-24 13:52 | A.OFFPC_ITS ---
Vital Signs 03/24/24 13:54 Height 5 ft 3 in Weight 163 lb BMI 28.9 BP 124/78 Blood Pressure Location Lt brachial Position Sitting Pulse 75 Pulse Source Pulse Oximeter Pulse Oximetry (%) 97 Oxygen Delivery Method Room Air Intake Visit Reasons: Follow up Intake Note: Pt is here today for a follow up visit. Allergies latex Allergy (Unknown, Verified 03/24/24 13:55) unknown bee pollen Allergy (Verified 03/24/24 13:55) hives, swelling Medication List - Last Reconciled 03/24/24 by Nedra Alexander MD carvedilol (Coreg) 6.25 mg PO BID colchicine 0.6 mg PO BID folic acid 1 mg PO DAILY meloxicam 15 mg PO DAILY methotrexate sodium 7.5 mg (3 x 2.5 mg) PO QWEEK pravastatin 20 mg PO DAILY semaglutide 7 mg PO DAILY triamterene-hydrochlorothiazid 37.5-25 mg 1 tab PO DAILY Tobacco use date assessed: 03/24/24 Dental Screening Dental Screen Date: 09/14/23 HPI Follow up HPI Details Pt presents for f/u of chronic R knee pain and swelling. She follows up with ortho account services representative and has been getting cortisone inj and synvisc with temporary relief. Hypertension hyperlipidemia are controlled on current medications. [facility] Medical History Venous insufficiency of both lower extremities COPD (chronic obstructive pulmonary disease) Hyperlipidemia Radiculopathy MCNEIL (dyspnea on exertion) Dysplastic nevi Postmenopausal Schatzki's ring Annual physical exam Headache HTN (hypertension) Rheumatoid arthritis Asthma Surgical History History of right knee surgery H/O colonoscopy No pertinent past surgical history Family History Father History of heart attack CVD (cardiovascular disease) Rheumatoid arthritis Mother Gout Social History Housing: House Alcohol intake: current Alcohol intake frequency: does not drink Patient Tobacco Use Status: Never used Tobacco e-Cigarette/Vaping Use: Never Used Second Hand Smoke Exposure: No service: No Current occupational status: retired Cognitive needs: No Hearing needs: No Vision needs: Yes Questionnaire Thrive Questionnaire Date Thrive assessed: 06/28/23 LATONYA-7 AMB Questionnaire LATONYA-7 Date LATONYA - 7 assessed: 06/28/23 Source: Developed by Drs. Audi Mae, Lisy Prajapati, Idris Garcia and colleagues, with an educational travis from [employer]. Review of Systems Const All systems reviewed & are unremarkable except as noted in HPI and below Eyes Reports no additional complaints ENT Reports no additional complaints Card Reports no additional complaints Resp Reports no additional complaints GI Reports no additional complaints Reports no additional complaints Physical exam (Primary Care) Vital Signs: Last Vital Signs Pulse 75 03/24/24 13:54 BP 124/78 03/24/24 13:54 Pulse Ox 97 03/24/24 13:54 Oxygen Delivery Method Room Air 03/24/24 13:54 BMI result Body Mass Index 28.9 Tobacco/Smoking Status: Tobacco use Status Tobacco use date assessed 03/24/24 03/24/24 13:56 Patient Tobacco Use Status Never used Tobacco 03/24/24 13:52 e-Cigarette/Vaping Use Never Used 03/24/24 13:52 Thrive Assessment: Date of Thrive Assessment Date Thrive assessed 06/28/23 03/24/24 13:52 Const General: no acute distress HENMT Face and sinus: Yes normal facial exam Neck Neck: Yes supple Resp Effort & Inspection: normal respiratory effort Auscultation: clear to auscultation bilaterally Cardio Rhythm: regular rhythm Heart sounds: S1 normal heart sound present and S2 normal heart sound present GI Inspection: Yes normal to inspection Palpation (GI): Soft to palpation Extrem Other: Right knee soft tissue swelling no erythema warmth there is a decreased range of motion and crepitus Coding Level of Care Code Est Pt Level 4 (44741) Diagnoses Rheumatoid arthritis M06.9 Venous insufficiency of both lower extremities I87.2 Vitamin D deficiency E55.9 Hyperlipidemia E78.5 Right knee pain M25.561 HTN (hypertension) I10 Assessment & Plan Assessment & Plan (1) Rheumatoid arthritis: Comment: Established with account services representative Code(s): M06.9 - Rheumatoid arthritis, unspecified Category: Medical Plan: Controlled on methotrexate (2) Venous insufficiency of both lower extremities: Code(s): I87.2 - Venous insufficiency (chronic) (peripheral) Category: Medical Plan: Patient will take Lovenox DVT prophylaxis before traveling to [facility] (3) Vitamin D deficiency: Code(s): E55.9 - Vitamin D deficiency, unspecified Category: Medical Plan: Continue vitamin-D. (4) Hyperlipidemia: Code(s): E78.5 - Hyperlipidemia, unspecified Category: Medical Plan: Continue statin (5) Right knee pain: Comment: Moderate to advanced osteoarthritis, established with ortho Code(s): M25.561 - Pain in right knee Category: Medical Plan: Follow-up with ortho (6) HTN (hypertension): Code(s): I10 - Essential (primary) hypertension Category: Medical Plan: Continue current medications Orders: Orders Comprehensive [place]. Panel Fast 3 Months E55.9 - Vitamin D deficiency, unspecified, I87.2 - Venous insufficiency (chronic) (peripheral), M06.9 - Rheumatoid arthritis, unspecified Complete Blood Count Auto Diff 3 Months E55.9 - Vitamin D deficiency, unspecified, I87.2 - Venous insufficiency (chronic) (peripheral), M06.9 - Rheumatoid arthritis, unspecified Lipid Panel 3 Months E55.9 - Vitamin D deficiency, unspecified, I87.2 - Venous insufficiency (chronic) (peripheral), M06.9 - Rheumatoid arthritis, unspecified TSH reflex Free T4 3 Months E55.9 - Vitamin D deficiency, unspecified, I87.2 - Venous insufficiency (chronic) (peripheral), M06.9 - Rheumatoid arthritis, unspecified Vitamin D 25-OH Total 3 Months E55.9 - Vitamin D deficiency, unspecified, I87.2 - Venous insufficiency (chronic) (peripheral), M06.9 - Rheumatoid arthritis, unspecified Medications: New enoxaparin (Lovenox) 100 mg subcut DAILY 2 mL 0RF tirzepatide (weight loss) (Zepbound) 2.5 mg (0.5 mL) subcut QWEEK 2 mL 1RF Changed From colchicine On day 1 take one tablet, 72 hours take one tablet 0.6 mg PO DAILY 2 tabs 0 RF To colchicine 0.6 mg PO BID 14 tabs 0RF Refilled colchicine 0.6 mg PO BID 14 tabs 0RF Discontinued semaglutide Discontinued Reason: Doctor's Order 7 mg PO DAILY 30 tabs 1RF
--- OUTSIDE RECORDS SUMMARY | 2024-03-24 13:53 | XMS_ITS | Continuity of Care Document ---
Author Organization [facility] Address [address] [place] [address] Dr [address] [place] [address] Phone Care Team Providers Care Commercial Sales Consultant Name Role Phone Bernardino Christian MD, FACS, RVT Unavailable Unavailable Advance Directives Directive Yes / No Effective Date File Name No Information Encounters Encounter Description Practice Location Reason(s) For Visit Diagnoses Date Provider Providers Copied on Encounter [facility], [address] [place] [address] [address], [place], [id number], tel:[phone] [address] [facility] No Information 3 Sloan Mancilla. [address] [place] [address], [address], [place]. tel:[phone] Family History Family Member Type Diagnosis Age At Onset No Information Payers Payer name Insurance type Covered democrat ID Authoriza tion(s) No Information Social History [...]
[2024-03-24 13:54] VITALS: BP 124/78; PULSE 75; O2SAT 97; BMI 28.9
== END 2024-03-24 14:17 | disposition home or self-care (01) ==
PROVIDERS: PCP Internal Medicine; Visit Provider Internal Medicine
DX: M06.9 Rheumatoid arthritis, unspecified (principal); I87.2 Venous insufficiency (chronic) (peripheral); E55.9 Vitamin D deficiency, unspecified; E78.5 Hyperlipidemia, unspecified; M25.561 Pain in right knee; I10 Essential (primary) hypertension

== ENCOUNTER → 2024-03-24 13:49 | Outpatient (BNVA) | payer MEDICARE, SELFPAY | PROVIDERS: PCP Internal Medicine; Visit Provider Internal Medicine | DX: M06.9 Rheumatoid arthritis, unspecified (principal); I87.2 Venous insufficiency (chronic) (peripheral); E55.9 Vitamin D deficiency, unspecified; E78.5 Hyperlipidemia, unspecified; M25.561 Pain in right knee; I10 Essential (primary) hypertension | CPT/HCPCS: 99212 ==

== ENCOUNTER 2024-07-07 11:39 | Outpatient (REF) | payer MEDICARE, SELFPAY ==
--- OUTSIDE RECORDS SUMMARY | 2024-07-07 14:24 | XMS_ITS | Clinical Summary ---
Author Organization 175 [facility] Address 175 [place] [address] Phone Care Team Providers Care Sleep Tech Name Role Phone Nedra Alexander MD Primary Care Provider [phone] Social History Tobacco Use Types Packs/Day Years Used Date Smoking Tobacco: Never Assessed Comments Unknown Sex and Gender Information Value Date Recorded Sex Assigned at Not on file Legal Sex Female 1:28 PM EST Gender Identity Not on file Sexual Orientation Not on file Plan of Treatment Upcoming Encounters Date Type Department Care Team ([facility] Contact Info) Description 12/11/2024 3:30 PM EDT Consult Bariatric Surgery [address] [address] Miranda Vizcaino MD [address] [address] Health Maintenance Due Date Last [...] complete this topic Insurance MEDICARE Care Teams Sleep Tech Relationship Specialty Start Date End Date Nedra Alexander MD PCP - General Internal Medicine 10/13/19
== END 2024-07-07 11:40 | disposition home or self-care (01) ==
LOC: HO.HMGCLDS 11:39
PROVIDERS: PCP Internal Medicine; Visit Provider Internal Medicine
DX: Z00.00 Encounter for general adult medical examination without abnormal findings (principal); E78.5 Hyperlipidemia, unspecified; I10 Essential (primary) hypertension; K14.8 Other diseases of tongue; Z79.899 Other long term (current) drug therapy
CPT/HCPCS: 96127

== ENCOUNTER 2024-07-07 11:39 | Outpatient (AMB) | payer MEDICARE, SELFPAY ==
[2024-07-07 11:42] VITALS: BP 132/80; PULSE 78; RESP 18; TEMP 36.7; O2SAT 97; BMI 29.6
--- NOTE | 2024-07-07 11:42 | AM.OFFVISMDC ---
Intake Vital Signs 07/07/24 11:42 Height 5 ft 3 in Weight 167 lb BMI 29.6 BP 132/80 Blood Pressure Location Lt brachial Position Sitting Respiration 18 Pulse 78 Pulse Source Pulse Oximeter Temp 98.0 F Temp Source Oral Pulse Oximetry (%) 97 Oxygen Delivery Method Room Air Intake Visit Reasons: AWV [id number] Intake Note: Pt is here today for AWV. Allergies latex Allergy (Unknown, Verified 07/07/24 11:47) unknown bee pollen Allergy (Verified 07/07/24 11:47) hives, swelling HPI HPI Comments History of Present Illness Details Patient presents for physical. She noticed a irritated growth on her right side of the tongue she has been biting frequently Initiated the conversation about Advanced Directives. Advanced Directives help? patients prepare for current and future decisions about their medical treatment? and place of care. Discussed with patient that it is a process where a patients? current condition and prognosis are reviewed, their wishes for information? regarding their illness are elicited, and likely medical dilemmas are presented? and options discussed. The form can be amended as needed, reviewed yearly and? make changes as needed IPPE/AWV ? year old presents? for her ? Annual? Wellness Visit, initial visit.? Medical / Social History Reviewed? Past Medical History ?Yes? . ? [place]? of Care / Care Team list updated ?Yes . ? Surgical/Hospitalization? History ?Yes . ? Current Medications? (including OTC and supplements) ?Yes . ? Family History ?Yes? . ? Tobacco? Control form ?Yes . ? AUDIT-C (Alcohol use) form? ?Yes . ? Illicit drug use in Social? History ?Yes . ? Current diagnosis of? depression? ?No ? Appropriate PHQ2/PHQ9? completed ?Yes . ? Data entered by ?Medical? Transfer Engineer and reviewed by provider ? Fall Risk ? Fall? History? Have you had any falls with? injury in the past year? ?No . ? Have you had two or more? falls in the past year? ?No . ? Fall Risk Assessment: ?No? falls in the past year . ? HRA filled out by? the patient, reviewed by Provider and scanned. ? IPPE/AWV ? Balance? Romberg? ?Yes . ? Tandem? walk ?Yes . ? Walk and? Turn ?Yes . ? Rise from? sit to stand ?Yes . ?Vision? Corrective? lens ?Yes ? Vision? screen ? Up-to-date, has an appointment [] for vision? screening and glaucoma screening ?Hearing? Whisper? test ?pass .? Initiated the conversation about Advanced Directives. Advanced Directives help? patients prepare for current and future decisions about their medical treatment? and place of care. Discussed with patient that it is a process where a patients? current condition and prognosis are reviewed, their wishes for information? regarding their illness are elicited, and likely medical dilemmas are presented? and options discussed. The form can be amended as needed, reviewed yearly and? make changes as needed Written? Plan?Completed. See Patient? Documents. [facility] Medical History Tongue mass Tongue abnormality Venous insufficiency of both lower extremities COPD (chronic obstructive pulmonary disease) Hyperlipidemia Radiculopathy MCNEIL (dyspnea on exertion) Dysplastic nevi Postmenopausal Schatzki's ring Annual physical exam Headache HTN (hypertension) Rheumatoid arthritis Asthma Surgical History History of right knee surgery H/O colonoscopy No pertinent past surgical history Family History Father History of heart attack CVD (cardiovascular disease) Rheumatoid arthritis Mother Gout Social History Housing: House Alcohol intake: current Alcohol intake frequency: does not drink Patient Tobacco Use Status: Never used Tobacco e-Cigarette/Vaping Use: Never Used Second Hand Smoke Exposure: No service: No Current occupational status: retired Cognitive needs: No Hearing needs: No Vision needs: Yes Questionnaire Medicare Wellness Checkup [age] What gender do you identify with?: female During the past 4 weeks, how much have you been bothered by emotional problems such as feeling anxious, depressed, irritable, sad or downhearted, and blue?: not at all During the past 4 weeks, has your physical & emotional health limited your social activities with family, friends, neighbors, or groups?: quite a bit During the past 4 weeks, how much bodily pain have you generally had?: moderate pain During the past 4 weeks, was someone available to help you if you needed & wanted help?: yes, as much as I wanted During the past 4 weeks, what was the hardest physical activity you could do for at least 2 minutes?: moderate Can you get to places out of walking distance without help? (For eg., can you travel alone on buses, taxis or drive your car?): Yes Can you go shopping for groceries or clothes without someone's help?: Yes Can you prepare your own meals?: Yes Can you do your housework without help?: Yes Because of any health problems, do you need the help of another person with your personal care needs such as eating, bathing, dressing or getting around the house?: No Can you handle your own money without help?: Yes During the past 4 weeks, how would you rate your health in general?: good During the past 4 weeks how have things been going for you?: good & bad parts about equal Are you having difficulties driving your car?: no Do you always fasten your seat belt when you are in a car?: yes, usually During past 4 weeks, have you been bothered by the following: never: Falling or dizzy when standing up, Sexual problems?, Trouble eating well?, Teeth or denture problems?, Problems using the telephone? and Tiredness or fatigue? Have you fallen 2 or more times in the past year?: No Are you afraid of falling?: No Are you a smoker?: no During the past 4 weeks, how many drinks of wine, beer, or other alcoholic beverages did you have?: no alcohol at all Do you exercise for about 20 minutes 3 or more times a week?: yes, some of the time Have you been given information to help with the following?: no: Hazards in your house that might hurt you? and no: Keeping track of your medications? How often do you have trouble taking medicines the way you have been told to take them?: I always take medicine as prescribed How confident are you that you can control & manage most of your health problems?: very confident What is your race?: White Mini Mental State Exam (MMSE) Orientation What is the (year) (season) (date) (day) (month)?: year, season, date, day and month Where are we (state) (county) (town or city) (hospital) (floor)?: state, county, town or city, hospital/clinic and floor Registration Name of 3 unrelated objects clearly and slowly, then ask patient to repeat all 3 of them. (1st repeat determines score. Make sure they can repeat all three): object 1, object 2 and object 3 Attention & Calculation (CHOOSE ONE) Spell WORLD backwards (DLROW): 5 letters Recall Ask patient to repeat the 3 items from question #3.: object 1, object 2 and object 3 Language Show patient a wristwatch & ask what it is. Repeat for pencil.: watch and pencil Ask the patient to repeat the phrase 'No ifs, ands, or buts' after you.: correct Ask the patient to 'take a piece of paper with their right hand' 'fold paper in half' 'place paper on floor': take paper in right hand, fold paper in half and place paper on floor Print the sentence 'CLOSE YOUR EYES' on a piece. If patient actually closes eyes then score.: followed written direction Give patient a blank piece of paper & ask to write a sentence. Score if it contains a noun & verb.: sentence contains subject and verb Score Score: 29 Activity of Daily Living Bathing - sponge bath, tub bath or shower: receives no assistance (gets in/out by self, if usual bathing means Dressing - getting clothes from closets & drawers, including inner/outer garments & fasteners.: gets clothes & gets completely dressed without help Toileting - going to the 'toilet room' for urine/bowel elimination & cleaning self/arranging clothes: goes to toilet room, cleans self, arranges clothes without help Transfer: moves in & out of bed and chair without help (may use support object) Continence: controls urination/bowel movements completely by self Feeding: feeds self without help Total Score: 0 Information obtained from: patient Using telephone: independent Traveling: independent Shopping: independent Preparing meals: independent Housework: independent Taking medicine: independent Managing money: independent PHQ-9 Over the last 2 weeks, how often have you been bothered by any of the following problems? 1. Little interest or pleasure in doing things: not at all 2. Feeling down, depressed, or hopeless: not at all 3. Trouble falling or staying asleep, or sleeping too much: not at all 4. Feeling tired or having little energy: not at all 5. Poor appetite or overeating: not at all 6. Feeling bad about yourself - or that you are a failure or have let yourself or your family down: not at all 7. Trouble concentrating on things, such as reading the newspaper or watching television: not at all 8. Moving or speaking so slowly that other people could have noticed. Or the opposite - being so fidgety or restless that you have been moving around a lot more than usual: not at all 9. Thoughts that you would be better off or of hurting yourself in some way: not at all Total score: 0 Depression Screening Interpretation: Negative Depression Screening Done: Yes 87410 - PHQ-9 Billing: Yes Source: Developed by Drs. Audi Mae, Lisy Prajapati, Idris Garica and colleagues, with an educational travis from [employer]. Review of Systems Const All systems reviewed & are unremarkable except as noted in HPI and below Eyes Reports no additional complaints ENT Reports no additional complaints Card Reports no additional complaints Resp Reports no additional complaints GI Reports no additional complaints Reports no additional complaints Physical Exam Vital Signs: Last Vital Signs Temp 98.0 F 07/07/24 11:42 Pulse 78 07/07/24 11:42 Resp 18 07/07/24 11:42 BP 132/80 07/07/24 11:42 Pulse Ox 97 07/07/24 11:42 Oxygen Delivery Method Room Air 07/07/24 11:42 BMI result Body Mass Index 29.6 Const General: no acute distress HEENT Head: Yes normal to inspection Ears: TM's normal bilaterally General nose exam: Normal external nose present Face and sinus: Yes normal facial exam Mouth: tongue abnormal (Right lateral side about 1 cm exophytic growth smooth mucosa, no ulcer) Eyes General: appearance normal, both eyes and all related structures Neck Neck: Yes no lymphadenopathy and Yes supple Resp Effort & Inspection: normal respiratory effort Auscultation: clear to auscultation bilaterally Cardio Rhythm: regular rhythm Heart sounds: S1 normal heart sound present and S2 normal heart sound present GI Inspection: Yes normal to inspection Palpation (GI): Soft to palpation Percussion: Yes normal to percussion Auscultation: normal bowel sounds Extrem General: Yes no clubbing, cyanosis or edema Assessment & Plan Assessment & Plan (1) Hyperlipidemia: Code(s): E78.5 - Hyperlipidemia, unspecified Plan: Continue statin (2) Annual physical exam: Code(s): Z00.00 - Encounter for general adult medical examination without abnormal findings Plan: Well-balanced diet regular physical activity discussed with the patient she is up-to-date with the mammogram colonoscopy and DEXA by obstetrics and gynecology professor (3) HTN (hypertension): Code(s): I10 - Essential (primary) hypertension Plan: Continue current medications (4) Tongue lesion: Code(s): K14.8 - Other diseases of tongue Plan: Referred to oral surgeon Orders: Orders Comprehensive [place]. Panel Fast 1 Month E78.5 - Hyperlipidemia, unspecified, I10 - Essential (primary) hypertension, Z00.00 - Encounter for general adult medical examination without abnormal findings Lipid Panel 1 Month E78.5 - Hyperlipidemia, unspecified, I10 - Essential (primary) hypertension, Z00.00 - Encounter for general adult medical examination without abnormal findings Uric Acid 1 Month E78.5 - Hyperlipidemia, unspecified, I10 - Essential (primary) hypertension, Z00.00 - Encounter for general adult medical examination without abnormal findings Hemoglobin A1c 1 Month E78.5 - Hyperlipidemia, unspecified, I10 - Essential (primary) hypertension, Z00.00 - Encounter for general adult medical examination without abnormal findings Complete Blood Count Auto Diff 1 Month E78.5 - Hyperlipidemia, unspecified, I10 - Essential (primary) hypertension, Z00.00 - Encounter for general adult medical examination without abnormal findings C Reactive Protein 1 Month E78.5 - Hyperlipidemia, unspecified, I10 - Essential (primary) hypertension, Z00.00 - Encounter for general adult medical examination without abnormal findings Referrals Oral Surgery Referal K14.8 - Other diseases of tongue Medications: Discontinued tirzepatide (weight loss) (Zepbound) Discontinued Reason: Doctor's Order 2.5 mg (0.5 mL) subcut QWEEK 2 mL 1RF Quality Reporting (2019) Depression/Bipolar (159/160/161/177) PHQ-9: Total score: 0 Coding Level of Care Code Medicare Subsequent (G0439) Diagnoses Hyperlipidemia E78.5 Annual physical exam Z00.00 HTN (hypertension) I10 Tongue lesion K14.8 CPT Codes Advance Care Planning - Time spent: 1-15 minutes, on File ([id number]) Additional Codes PHQ-9 - 13491 - PHQ-9 Billing: Yes ([id number]) Advance Care Planning Advance Care Planning discussion: Completed/Scanned Forms completed: Health Care Proxy Time spent: 1-15 minutes, on File Did not discuss due to Cultural/Spiritual beliefs: Yes
--- OUTSIDE RECORDS SUMMARY | 2024-07-07 13:24 | XMS_ITS | Clinical Summary ---
Author Organization [facility] Address [address] [place] [address] Phone Care Team Providers Care Putty Patcher Name Role Phone Nedra Alexander MD Primary Care Provider [phone] Social History Tobacco Use Types Packs/Day Years Used Date Smoking Tobacco: Never Assessed Comments Unknown Sex and Gender Information Value Date Recorded Sex Assigned at Not on file Legal Sex Female 1:28 PM EST Gender Identity Not on file Sexual Orientation Not on file Plan of Treatment Upcoming Encounters Date Type Department Care Team ([facility] Contact Info) Description 12/11/2024 3:30 PM EDT Consult Bariatric Surgery [address] [address] Miranda Vizcaino MD [address] [address] Health Maintenance Due Date Last Done Comments Breast Cancer Screening 1950 COVID-19 Vaccine (#1) 1957 DTaP,Tdap,and Td Vaccines (1 - Tdap) 10/12/1971 Pneumococcal Vaccine: 50+ Ye ars (1 of 1 - PCV) 2002 Zoster Vaccines (1 of 2) 2002 Colorectal Cancer Screening: Colonoscopy 03/07/2022 Depression Screening 03/07/2022 Falls Risk Assessment 03/07/2022 Hepatitis C Screening 03/07/2022 Medicare Annual Wellness Visit 03/07/2022 Osteoporosis Screening (Bone Density Screening) 03/07/2022 Social Influencers of Health Screening 03/07/2022 Influenza Vaccine (#1) 2023 RSV Immunization Patients 60 + Years Old (1 - 1-dose 75+ series) 10/12/2027 HIB Vaccines Aged Out No longer eligi ble based on patient's age to complete this topic HPV Vaccines Aged Out No longer eligi ble based on patient's age to complete this topic Hepatitis A Vaccines Aged Out No long er eligible based on patient's age to complete this topic Hepatitis B Vaccines Aged Out No long er eligible based on patient's age to complete this topic IPV Vaccines Aged Out No longer eligi ble based on patient's age to complete this topic MMR Vaccines Aged Out No longer eligi ble based on patient's age to complete this topic Meningococcal ACWY Vaccine Aged Out N o longer eligible based on patient's age to complete this topic Meningococcal B Vacine Aged Out No lo nger eligible based on patient's age to complete this topic RSV Immunization Patients Un jas 20 months Aged Out No longer eligible b ased on patient's age to complete this topic Varicella Vaccines Aged Out No longer eligible based on patient's age to complete this topic Insurance MEDICARE Care Teams Putty Patcher Relationship Specialty Start Date End Date Nedra Alexander MD PCP - General Internal Medicine 10/13/19
== END 2024-07-07 12:40 | disposition home or self-care (01) ==
LOC: HO.HMCC 11:40
PROVIDERS: PCP Internal Medicine; Visit Provider Internal Medicine
DX: Z00.00 Encounter for general adult medical examination without abnormal findings (principal); E78.5 Hyperlipidemia, unspecified; I10 Essential (primary) hypertension; K14.8 Other diseases of tongue

== ENCOUNTER 2024-08-05 11:08 | Outpatient (REF) | payer MEDICARE, SELFPAY ==
--- OUTSIDE RECORDS SUMMARY | 2024-08-05 13:03 | XMS_ITS | Continuity of Care Document ---
Author Organization [facility] Address [address] [place] [address]- Care Team Providers Care House Calls Nurse Name Role Phone Nedra Alexander MD Primary Care Physician Encounter [facility] Date(s[facility] 07/03/24 - 08/02/24 [facility] [address] [place], [place] [address] Encounter Type: Triage Allergies, Adverse Reactions, Alerts Substance Criticality Severity Reaction Reaction Severity Status Latex red itchy , rash Act johnathon Bee Stings anaphylaxis Active Medications Colace sodium 100 mg oral capsule 100 mg, 1, capsule, By Mouth, 2 times a day, PRN, # 20 capsule, Refills 0, Tot. Refills 0, Maintenance, for constipation, 03/08/16 10:31:59 AM EST, Print Requisition Start Date: 03/08/16 Status: Ordered Quantity: 20.0 Unit: capsule Repeat number: 1 Coreg 12.5 mg oral tablet 1 tablet = 12.5 mg, By Mouth, 2 times a day, 0 Refills, Maintenance, 08/28/13 7:17:38 AM EDT Start Date: 08/28/13 Status: Ordered Repeat number: 1 dexamethasone 1 mg oral tablet 1 tablet = 1 mg, By Mouth, Once, to be taken at 11pm go for lab work the next morning at 8am, # 1 tablet, 0 Refills, Soft Stop, 05/01/24 5:48:00 PM EST, [facility]/pharmacy #[id number], Partial fill upon patient request if the prescription is for a schedule II opioid drug., 160, cm, 05/01/24 17:00:00 EST, Height Start Date: 05/01/24 Status: Ordered Quantity: 1.0 Unit: tablet Repeat number: 1 folic acid 1 mg oral tablet 1 mg, 1, tablet, By Mouth, Daily, # 30 tablet, Refills 0, Maintenance, 10/03/15 3:54:13 PM EDT Start Date: 10/03/15 Status: Ordered Quantity: 30.0 Unit: tablet Repeat number: 1 hydrochlorothiazide-triamterene 25 mg-37.5 mg oral tablet 1, tablet, By Mouth, Daily, # 30 tablet, Refills 0, Maintenance, 10/03/15 3:52:16 PM EDT, Tablet Start Date: 10/03/15 Status: Ordered Quantity: 30.0 Unit: tablet Repeat number: 1 ibuprofen 600 mg oral tablet 600 mg, 1, tablet, By Mouth, Every 8 hours, # 30 tablet, Refills 0, Tot. Refills 0, Maintenance, 10/03/15 8:17:33 PM EDT, Print Requisition Start Date: 10/03/15 Stop Date: 10/13/15 Status: Ordered Quantity: 30.0 Unit: tablet Repeat number: 1 meloxicam 15 mg oral tablet 90 each, 0 Refill(s), TAKE 1 TABLET BY MOUTH DAILY, 0 Refills, 05/01/24 5:00:00 PM EST, Partial fillupon patient request if the prescription is for a schedule II opioid drug. Start Date: 05/01/24 Status: Ordered Repeat number: 1 methotrexate 2.5 mg oral tablet 1 tablet = 2.5 mg, By Mouth, Every week, # 4 tablet, 0 Refills, Maintenance, 10/03/15 3:52:55 PM EDT, Tablet Start Date: 10/03/15 Status: Ordered Quantity: 4.0 Unit: tablet Repeat number: 1 Multivitamin By Mouth, Daily, 0 Refills, Maintenance, 08/28/13 7:17:49 AM EDT Start Date: 08/28/13 Status: Ordered Repeat number: 1 Problem List Condition Confirmation Course Effective Dates Status Health St atus Informant Benign essential hypertension Confirmed Active COPD (chronic obstructive pulmonary disease) with chronic bronchitis Confirmed Active Obese class I Confirmed Active Rheumatoid arteritis Confirmed Active Social History Social History Type Response Smoking Status Never (less than 100 in lifetime);Never; Type: Cigarettes; Type: Cigars; Type: Oral; Type: Pipe entered on: 05/01/24 Sex Female Sex Representation Female (finding) Patient Care team information Care Team Personnel Name: Nedra Alexander MD Position: [facility] Physician - Primary Care Member Role: PCP Address: [address] [place] [address] Telecom: Care Team Related Persons Name: LISSA SOLANO Name: GEORGIANA SOLANO Insurance Providers Guarantor name: MARIAM SOLANO Health Plan Information #: 1 Payer: MEDICARE PART B OUTPT Member Number: NA Policy Number: NA Group Number: NA Health Plan Information #: 2 Payer: MEDEX Member Number: NA Policy Number: NA Group Number: NA
--- OUTSIDE RECORDS SUMMARY | 2024-08-05 13:03 | XMS_ITS | Clinical Summary ---
Author Organization 175 [facility] Address [address] [place] [address] Phone Care Team Providers Care Reimbursement Representative Name Role Phone Nedra Alexander MD Primary Care Provider Social History Tobacco Use Types Packs/Day Years Used Date Smoking Tobacco: Never Assessed Comments Unknown Sex and Gender Information Value Date Recorded Sex Assigned at Not on file Legal Sex Female 1:28 PM EST Gender Identity Not on file Sexual Orientation Not on file Plan of Treatment Upcoming Encounters Date Type Department Care Team ([facility] Contact Info) Description 12/11/2024 3:30 PM EDT Consult Bariatric Surgery [address] [address] Miranda Vizcaino MD [address] [address] Health Maintenance Due Date Last [...] Influencers of Health Screening 03/07/2022 Influenza Vaccine (Season Ended) 2024 RSV Immunization Adult Patie nts (1 - 1-dose 75+ series) 10/12/2027 HIB [...] age to complete this topic Meningococcal B Vaccine Aged Out No l onger eligible based on patient's age to complete this topic RSV Immunization Patients Un jas 20 months Aged Out No longer eligible b ased on patient's age to complete this topic Varicella Vaccines Aged Out No longer eligible based on patient's age to complete this topic Insurance MEDICARE Care Teams Reimbursement Representative Relationship Specialty Start Date End Date Nedra Alexander MD PCP - General Internal Medicine 10/13/19
[2024-08-05 13:14] LABS: MANUAL DIFF FLAG NO
[2024-08-05 13:24] LABS: Basophils Percent Auto 0.1 % (0-2); Hematocrit 38.7 % (37.0-47.0); Hemoglobin 13.1 g/dl (12.0-16.0); Imm Gran Abs Auto 0.05 X10*3/uL (0.00-0.03); Imm Gran Pct Auto 0.4 % (0.0-0.4); Lymphocytes Percent Auto 8.9 % (20-40); Mean Corpuscular HGB Conc 33.9 g/dl (31.0-35.0); Mean Corpuscular Hemoglobin 28.2 pg (27.0-33.0); Mean Corpuscular Volume 83.2 fL (80.0-98.0); Mean Platelet Volume 9.5 fL (9.4-12.3); Monocytes Absolute Auto 0.2 X10*3/uL (0.1-1.2); Monocytes Percent Auto 1.9 % (2-11); Neutrophils Percent Auto 88.7 % (45-73); Platelet Count 259 X10*3/uL (160-400); Red Blood Count 4.65 X10*6/uL (4.20-5.50); Red Cell Distribution Width 13.2 % (11.0-16.0); White Blood Count 11.2 X10*3/uL (4.8-10.8)
[2024-08-05 13:36] LABS: Estimated Average Glucose 123 mg/dL; Hemoglobin A1c % 5.9 % (<6.0); Total Hemoglobin (HGBA1C) 3416.5727 umol/L
[2024-08-05 14:08] LABS: Alanine Aminotransferase 27 U/L (0-31); Albumin Level 4.2 g/dL (3.5-5.0); Alkaline Phosphatase 74 U/L (39-117); Anion Gap 13 (12-20); Aspartate Amino Transferase 24 U/L (5-31); Bilirubin Total 0.5 mg/dL (0.0-1.0); Blood Urea Nitrogen 21 mg/dL (9-16); C Reactive Protein 0.28 mg/dL (< or = 0.50); Calcium 9.5 mg/dL (8.4-10.2); Carbon Dioxide 22 mmol/L (22-29); Chloride 108 mmol/L (96-108); Cholesterol 202 mg/dL (<200); Estimated Glomerular Filt Rate > 60; Glucose Fasting 145 mg/dL (60-99); HDL Cholesterol 61 mg/dL (>40); LDL Cholesterol Calculated 131 mg/dL (<100); Sodium 139 mmol/L (135-145); TSH reflex Free T4 0.62 uIU/mL (0.32-4.0); Total Protein 7.4 g/dL (6.5-8.0); Triglycerides 51 mg/dL (<150); Uric Acid 5.8 mg/dL (2.4-5.7)
[2024-08-05 14:42] LABS: Vitamin D 25-OH Total 54.4 ng/mL (>30)
== END 2024-08-05 11:09 | disposition home or self-care (01) ==
LOC: HO.HMGCLDS 11:08
PROVIDERS: PCP Internal Medicine; Visit Provider Internal Medicine
DX: Z00.00 Encounter for general adult medical examination without abnormal findings (principal); E55.9 Vitamin D deficiency, unspecified; M06.9 Rheumatoid arthritis, unspecified; I87.2 Venous insufficiency (chronic) (peripheral); E78.5 Hyperlipidemia, unspecified; I10 Essential (primary) hypertension; Z13.1 Encounter for screening for diabetes mellitus
CPT/HCPCS: 36415; 80053; 80061; 82306; 83036; 84443; 84550; 85025; 86140

== ENCOUNTER 2024-09-08 11:14 | Outpatient (REF) | payer MEDICARE, SELFPAY ==
--- NOTE | ~2024-09-08 | XR_ITS ---
EXAMINATION: XR CHEST CLINICAL INFORMATION: R05.9 - Cough, unspecified COMPARISON: 05/16/2022. TECHNIQUE: 2 views of the chest were obtained. FINDINGS: The cardiac, hilar, and mediastinal contours are normal. Mild aortic mural calcifications. The lungs are mildly hyperaerated. Minor linear atelectasis in the medial left base and inferior right base. Lungs otherwise clear. There is no pneumothorax or pleural effusion. There is no focal osseous or soft tissue abnormality. There are spinal degenerative changes. XR/XR chest 2V IMPRESSION: No active pulmonary disease. Electronically signed by: Skuhi Crawley MD 09/08/2024 03:53 PM EDT
== END 2024-09-08 11:15 | disposition home or self-care (01) ==
LOC: HO.HMGCX 11:14
PROVIDERS: PCP Internal Medicine; Visit Provider Internal Medicine
DX: R10.9 Unspecified abdominal pain (principal); R05.9 Cough, unspecified; M05.9 Rheumatoid arthritis with rheumatoid factor, unspecified; I10 Essential (primary) hypertension; Z79.899 Other long term (current) drug therapy
CPT/HCPCS: 71046; 96127; 99212

== ENCOUNTER 2024-09-08 11:14 | Outpatient (AMB) | payer MEDICARE, SELFPAY ==
[2024-09-08 11:26] VITALS: BP 126/86; PULSE 80; TEMP 36.4; O2SAT 95; BMI 29.8
--- NOTE | 2024-09-08 11:26 | A.OFFPC_ITS ---
Vital Signs 09/08/24 11:26 Height 5 ft 3 in Weight 168 lb BMI 29.8 BP 126/86 Blood Pressure Location Lt brachial Position Sitting Pulse 80 Pulse Source Pulse Oximeter Temp 97.6 F Temp Source Oral Pulse Oximetry (%) 95 Oxygen Delivery Method Room Air Intake Visit Reasons: High blood pressure Allergies latex Allergy (Unknown, Verified 09/08/24 11:52) unknown bee pollen Allergy (Verified 09/08/24 11:52) hives, swelling Medication List - Last Reconciled 09/08/24 by Nedra Alexander MD allopurinol 100 mg PO DAILY carvedilol (Coreg) 6.25 mg PO BID colchicine 0.6 mg PO BID folic acid 1 mg PO DAILY meloxicam 15 mg PO DAILY methotrexate sodium 7.5 mg (3 x 2.5 mg) PO QWEEK pravastatin 20 mg PO DAILY triamterene-hydrochlorothiazid 37.5-25 mg 1 tab PO DAILY Tobacco use date assessed: 09/08/24 Fall risk assessment: No Falls in past year Last assessed Fall Risk: 09/08/24 Dental Screening Dental Screen Date: 09/08/24 Did you have a dental visit in the last 12 months?: Yes Did you have a dental problem in the last 6 months where you did not have access to dental care?: No Was dental information given to patient?: Patient has dentist HPI High blood pressure HPI Details Pt presents for f/u HTN,hyperlipid. Patient reports elevated blood pressure at home on occasion up to 150/90. She reports chronic dry cough but denies chest pain shortness or breath dyspnea on exertion. Patient reports chronic left flank pain sharp on and off not associated with the constipation nausea vomiting hematuria dysuria. [facility] Medical History (Updated 09/08/24 @ 12:27 by Nedra Alexander MD) Tongue mass Tongue abnormality Venous insufficiency of both lower extremities COPD (chronic obstructive pulmonary disease) Hyperlipidemia Radiculopathy MCNEIL (dyspnea on exertion) Dysplastic nevi Postmenopausal Schatzki's ring Annual physical exam Headache HTN (hypertension) Asthma Surgical History History of right knee surgery H/O colonoscopy No pertinent past surgical history Family History Father History of heart attack CVD (cardiovascular disease) Rheumatoid arthritis Mother Gout Social History Housing: House Alcohol intake: current Alcohol intake frequency: does not drink Patient Tobacco Use Status: Never used Tobacco e-Cigarette/Vaping Use: Never Used Second Hand Smoke Exposure: No service: No Current occupational status: retired Cognitive needs: No Hearing needs: No Vision needs: Yes Questionnaire PHQ-9 Over the last 2 weeks, how often have you been bothered by any of the following problems? 1. Little interest or pleasure in doing things: not at all 2. Feeling down, depressed, or hopeless: not at all 3. Trouble falling or staying asleep, or sleeping too much: not at all 4. Feeling tired or having little energy: not at all 5. Poor appetite or overeating: not at all 6. Feeling bad about yourself - or that you are a failure or have let yourself or your family down: not at all 7. Trouble concentrating on things, such as reading the newspaper or watching television: not at all 8. Moving or speaking so slowly that other people could have noticed. Or the opposite - being so fidgety or restless that you have been moving around a lot more than usual: not at all 9. Thoughts that you would be better off or of hurting yourself in some way: not at all Total score: 0 Depression Screening Interpretation: Negative Depression Screening Done: Yes 58343 - PHQ-9 Billing: Yes Source: Developed by Drs. Audi Mae, Lisy Prajapati, Idris Garcia and colleagues, with an educational travis from [employer]. Thrive Questionnaire Date Thrive assessed: 09/08/24 I am a: Patient What is your living situation today?: I have a steady place to live Within the past 12 months, did the food you bought not last and you didn't have the money to get more?: Never true Within the past 12 months, did you worry whether your food would run out before you got money to buy more?: Never true Do you have trouble paying for medicines?: No Do you have trouble getting transportation to medical appointments?: No Do you have trouble paying your heating and electricity bill?: No Do you have trouble taking care of your child, family member or friend?: No Do you have trouble with day-to-day activities such as bathing, preparing meals, shopping, managing finances, etc.?: No Are you currently unemployed and looking for a job?: No Are you interested in more education?: No Please select the resources that you would like help with: None THRIVE Score: 0 AUDIT C Alcohol Use Questionnaire (AUDIT-C) 1. How often do you have a drink containing alcohol?: Never 3. How often do you have six or more drinks on one occasion?: Never Total Score: 0 LATONYA-7 AMB Questionnaire LATONYA-7 Date LATONYA - 7 assessed: 09/08/24 Feeling nervous, anxious, or on edge: 0 = Not at all Not being able to stop or control worryin = Not at all Worrying too much about different things: 0 = Not at all Trouble relaxin = Not at all Being so restless that it is hard to sit still: 0 = Not at all Becoming easily annoyed or irritable: 0 = Not at all Feeling afraid as if something awful might happen: 0 = Not at all Total LATONYA-7 score (0-4 normal; 5-9 mild; 10-14 moderate; 15-21 severe): 0 Source: Developed by Drs. Audi Mae, Lisy Prajapati, Idris Garcia and colleagues, with an educational travis from [employer]. Review of Systems Const All systems reviewed & are unremarkable except as noted in HPI and below Eyes Reports no additional complaints ENT Reports no additional complaints Card Reports no additional complaints Resp Reports no additional complaints GI Reports no additional complaints Reports no additional complaints Physical exam (Primary Care) Vital Signs: Last Vital Signs Temp 97.6 F 09/08/24 11:26 Pulse 80 09/08/24 11:26 BP 126/86 09/08/24 11:26 Pulse Ox 95 09/08/24 11:26 Oxygen Delivery Method Room Air 09/08/24 11:26 BMI result Body Mass Index 29.8 Tobacco/Smoking Status: Tobacco use Status Tobacco use date assessed 09/08/24 09/08/24 11:27 Patient Tobacco Use Status Never used Tobacco 09/08/24 11:27 e-Cigarette/Vaping Use Never Used 09/08/24 11:27 PHQ-9: PHQ-9 Score PHQ-9: Total score 0 09/08/24 11:27 Depression Screening Interpretation: Negative Thrive Assessment: Date of Thrive Assessment Date Thrive assessed 09/08/24 09/08/24 11:27 Const General: no acute distress HENMT Head: Yes normal to inspection Eyes General: appearance normal, both eyes and all related structures Resp Effort & Inspection: normal respiratory effort Auscultation: clear to auscultation bilaterally Cardio Rhythm: regular rhythm Heart sounds: S1 normal heart sound present and S2 normal heart sound present GI Inspection: Yes normal to inspection Palpation (GI): Soft to palpation Percussion: Yes normal to percussion Auscultation: normal bowel sounds Coding Level of Care Code Est Pt Level 4 (23588) Diagnoses Left flank pain R10.9 Cough R05.9 Seropositive rheumatoid arthritis M05.9 HTN (hypertension) I10 Additional Codes PHQ-9 - 28740 - PHQ-9 Billing: Yes ([id number]) Assessment & Plan Assessment & Plan (1) Left flank pain: Code(s): R10.9 - Unspecified abdominal pain Category: Medical Plan: Obtain renal ultrasound to rule out nephrolithiasis, check UA (2) Cough: Code(s): R05.9 - Cough, unspecified Category: Medical Plan: FOR CHRONIC COUGH OBTAIN CHEST X-RAY, patient declined inhalers for COPD (3) Seropositive rheumatoid arthritis: Comment: + RF onset age 47 Code(s): M05.9 - Rheumatoid arthritis with rheumatoid factor, unspecified Category: Medical Plan: Follow-up with rheumatology (4) HTN (hypertension): Code(s): I10 - Essential (primary) hypertension Category: Medical Plan: Increase carvedilol to 1 and half tablet twice a day continue Dyazide follow-up in 2 months Orders: Orders US renal BI Today R10.9 - Unspecified abdominal pain XR chest 1V Today R05.9 - Cough, unspecified UA w Microscopic Today R10.9 - Unspecified abdominal pain Medications: Changed From carvedilol (Coreg) must administer with a meal/food NO SUBSTITUTION 6.25 mg PO BID 180 tabs 3RF To carvedilol (Coreg) 1 1/2 orally 2 times a day; must administer with a meal/food NO SUBSTITUTION 180 tabs 3RF
--- OUTSIDE RECORDS SUMMARY | 2024-09-08 12:31 | XMS_ITS | Continuity of Care Document ---
Author Organization [facility] Address [address] [place] [address] [address] [place] [address] Phone Care Team Providers Care Welding Robot Operator Name Role Phone Bernardino Christian MD, FACS, RVT Unavailable Unavailable Advance Directives Directive Yes / No Effective Date File Name No Information Encounters Encounter Description Practice Location Reason(s) For Visit Diagnoses Date Provider Providers Copied on Encounter [facility], [address], [place], [id number], tel:[phone] [address] [facility] No Information 3 Sloan Mancilla. [address] [place] [address], [address], [place]. tel:[phone] Family History Family Member Type Diagnosis Age At Onset No Information Payers Payer name Insurance type Covered alliance party ID Authoriza tion(s) No Information Social [...]
== END 2024-09-08 12:27 | disposition home or self-care (01) ==
LOC: HO.HMCC 11:15
PROVIDERS: PCP Internal Medicine; Visit Provider Internal Medicine
DX: R10.9 Unspecified abdominal pain (principal); R05.9 Cough, unspecified; M05.9 Rheumatoid arthritis with rheumatoid factor, unspecified; I10 Essential (primary) hypertension

== ENCOUNTER → 2024-09-08 15:09 | Outpatient (BNV) | payer MEDICARE, SELFPAY | PROVIDERS: PCP Internal Medicine; Visit Provider Radiology Diagnostic Radiology | DX: R05.9 Cough, unspecified (principal) | CPT/HCPCS: 71046 ==

== ENCOUNTER 2024-10-20 14:17 | Outpatient (AMB) | payer MEDICARE, SELFPAY ==
--- OUTSIDE RECORDS SUMMARY | 2022-05-25 17:28 | XMS_ITS | Continuity of Care Document ---
Author Organization [facility] Address [address] [place] [address] Dr [address] [place] [address] Phone Care Team Providers Care Share Holder Name Role Phone Bernardino Christian MD, FACS, RVT Unavailable Unavailable Advance Directives Directive Yes / No Effective Date File Name No Information Encounters Encounter Description Practice Location Reason(s) For Visit Diagnoses Date Provider Providers Copied on Encounter [facility], [address], [place], [id number], tel:[phone] [address] No Information 3 Sloan Mancilla. [address] [place] [address], [address], [place]. tel:[phone] Family History Family Member Type Diagnosis Age At Onset No Information Payers Payer name Insurance type Covered constitution party ID Authoriza tion(s) No Information Social History Type Description Quantity Date Captured Comments Sex Female Smoking Status No Information Chief Complaint And Reason For Visit No Information Reason For Referral Reason For Referral No Information History Of Present Illness Encounter Date Complaint History Of Prese nt Illness No Information Functional Status Date Functional Assessmen t No Information Instructions Date Instruction Additional Infor mation No Information Assessments Type Assessment Date No Information Patient Care Teams Name Effective Dates (start - stop) Status Members No Information
--- NOTE | 2024-10-20 14:18 | A.OFFPC_ITS ---
Vital Signs 10/20/24 14:19 Height 5 ft 3 in Weight 169 lb BMI 29.9 BP 126/80 Blood Pressure Location Lt brachial Position Sitting Respiration 18 Pulse 86 Pulse Source Pulse Oximeter Temp 98.0 F Temp Source Oral Pulse Oximetry (%) 97 Oxygen Delivery Method Room Air Intake Visit Reasons: Breast lump Intake Note: Pt is here today for a sick visit. Pt c/o lump on the L breast. Allergies latex Allergy (Unknown, Verified 10/20/24 14:20) unknown bee pollen Allergy (Verified 10/20/24 14:20) hives, swelling Tobacco use date assessed: 10/20/24 Fall risk assessment: No Falls in past year Last assessed Fall Risk: 10/20/24 Dental Screening Dental Screen Date: 09/08/24 HPI Breast lump HPI Details Patient presents because she noticed the painless left breast lump 2 weeks ago. [facility] Medical History Tongue mass Tongue abnormality Venous insufficiency of both lower extremities COPD (chronic obstructive pulmonary disease) Hyperlipidemia Radiculopathy MCNEIL (dyspnea on exertion) Dysplastic nevi Postmenopausal Schatzki's ring Annual physical exam Headache HTN (hypertension) Asthma Surgical History History of right knee surgery H/O colonoscopy No pertinent past surgical history Family History Father History of heart attack CVD (cardiovascular disease) Rheumatoid arthritis Mother Gout Social History Housing: House Alcohol intake: current Alcohol intake frequency: does not drink Patient Tobacco Use Status: Never used Tobacco e-Cigarette/Vaping Use: Never Used Second Hand Smoke Exposure: No service: No Current occupational status: retired Cognitive needs: No Hearing needs: No Vision needs: Yes Questionnaire Thrive Questionnaire Date Thrive assessed: 09/08/24 LATONYA-7 AMB Questionnaire LATONYA-7 Date LATONYA - 7 assessed: 09/08/24 Source: Developed by Drs. Audi Mae, Lisy Prajapati, Idris Garcia and colleagues, with an educational travis from [employer]. Review of Systems Const All systems reviewed & are unremarkable except as noted in HPI and below ENT Reports no additional complaints Card Reports no additional complaints Resp Reports no additional complaints GI Reports no additional complaints Reports no additional complaints Physical exam (Primary Care) Vital Signs: Last Vital Signs Temp 98.0 F 10/20/24 14:19 Pulse 86 10/20/24 14:19 Resp 18 10/20/24 14:19 BP 126/80 10/20/24 14:19 Pulse Ox 97 10/20/24 14:19 Oxygen Delivery Method Room Air 10/20/24 14:19 BMI result Body Mass Index 29.9 Tobacco/Smoking Status: Tobacco use Status Tobacco use date assessed 10/20/24 10/20/24 14:20 Patient Tobacco Use Status Never used Tobacco 10/20/24 14:20 e-Cigarette/Vaping Use Never Used 10/20/24 14:18 Thrive Assessment: Date of Thrive Assessment Date Thrive assessed 09/08/24 10/20/24 14:18 Const General: no acute distress Chest Breast/axilla palpation: no axillary lymphadenopathy and abnormal palpation of the breast ( left at10:00 5 cm from the nipple firm mobile mass about 2 cm, ) Resp Effort & Inspection: normal respiratory effort Auscultation: clear to auscultation bilaterally Cardio Rhythm: regular rhythm Heart sounds: S1 normal heart sound present and S2 normal heart sound present Coding Level of Care Code Est Pt Level 3 (96894) Diagnoses Breast mass, left N63.20 Assessment & Plan Assessment & Plan (1) Breast mass, left: Comment: 10 o'clock Code(s): N63.20 - Unspecified lump in the left breast, unspecified quadrant Category: Medical Plan: Refer to [facility] breast surgeon . She had most recent mammogram in April, obtain left breast mammogram and ultrasound to evaluate Orders: Orders MM diagnostic mammo unilat LT Today N63.20 - Unspecified lump in the left breast, unspecified quadrant US breast LT limited Today N63.20 - Unspecified lump in the left breast, unspecified quadrant Referrals Breast Surgery Referral N63.20 - Unspecified lump in the left breast, unspecified quadrant
[2024-10-20 14:19] VITALS: BP 126/80; PULSE 86; RESP 18; TEMP 36.7; O2SAT 97; BMI 29.9
--- OUTSIDE RECORDS SUMMARY | 2024-10-20 15:41 | XMS_ITS | Clinical Summary ---
Author Organization 175 [facility] Address [address] [place] [address] Phone Care Team Providers Care Voice Professor Name Role Phone Nedra Alexander MD Primary Care Provider [phone] Social History Tobacco Use Types Packs/Day Years Used Date Smoking Tobacco: Never Assessed Comments Unknown Sex and Gender Information Value Date Recorded Sex Assigned at Not on file Legal Sex Female 1:28 PM EST Gender Identity Not on file Sexual Orientation Not on file Plan of Treatment Upcoming Encounters Date Type Department Care Team ([facility] Contact Info) Description 12/11/2024 3:30 PM EDT Consult Bariatric Surgery [address] [address] Miranda Vizcaino MD [address] [phone] Health Maintenance Due Date Last Done Comments [...] of Health Screening 03/07/2022 Influenza Vaccine (#1) 2024 RSV Immunization Adult Patie nts (1 [...] complete this topic Insurance MEDICARE Care Teams Voice Professor Relationship Specialty Start Date End Date Nedra Alexander MD PCP - General Internal Medicine 10/13/19
== END 2024-10-20 14:53 | disposition home or self-care (01) ==
LOC: HO.HMCC 14:17
PROVIDERS: PCP Internal Medicine; Visit Provider Internal Medicine
DX: N63.20 Unspecified lump in the left breast, unspecified quadrant (principal)

== ENCOUNTER → 2024-10-20 14:17 | Outpatient (BNVA) | payer MEDICARE, SELFPAY | PROVIDERS: PCP Internal Medicine; Visit Provider Internal Medicine | DX: N63.22 Unspecified lump in the left breast, upper inner quadrant (principal) | CPT/HCPCS: 99212 ==

== ENCOUNTER 2024-11-03 10:49 | Outpatient (REF) | payer MEDICARE, SELFPAY ==
--- NOTE | ~2024-11-03 | US_ITS ---
CLINICAL HISTORY: R10.9 - left flank pain Ultrasound kidneys. COMPARISON: None provided. Technique: Real time sonographic imaging, including color-flow imaging, was performed by the clock repair technician. Multiple career representative static images were saved for review. FINDINGS: Right kidney: Cortical medullary differentiation is maintained. Normal color flow by Doppler. No calculus or focal parenchymal abnormality identified. No hydronephrosis. Right kidney size: 11.1 x 3.8 x 5.0 cm Left kidney: Cortical medullary differentiation is maintained. Normal color flow by Doppler. Several small echogenic nonshadowing foci present within the left kidney measuring up to approximately 4 mm. No hydronephrosis. Left kidney size: 11.2 x 5.6 x 4.0 cm IMPRESSION: 1. No evidence of renal obstruction. 2. Several small echogenic foci present within the left kidney measuring up to 4 mm. Nonspecific findings could represent small nonshadowing renal calculi or small renal angiomyolipomas. This document has been electronically signed by: Troy Benson MD on 11/03/2024 16:05:23
--- OUTSIDE RECORDS SUMMARY | 2024-11-03 12:03 | XMS_ITS | Clinical Summary ---
Author Organization 175 [facility] Address [address] [place] [address] Phone Care Team Providers Care Manager Gallery Name Role Phone Nedra Alexander MD Primary Care Provider [phone] Social History Tobacco Use Types Packs/Day Years Used Date Smoking Tobacco: Never Assessed Comments Unknown Sex and Gender Information Value Date Recorded Sex Assigned at Not on file Legal Sex Female 1:28 PM EST Gender Identity Not on file Sexual Orientation Not on file Plan of Treatment Upcoming Encounters Date Type Department Care Team ([facility] Contact Info) Description 12/11/2024 3:30 PM EDT Consult Bariatric Surgery [facility] [address] [address] Miranda Vizcaino MD [address] [phone] Health Maintenance Due Date Last Done Comments Breast Cancer Screening 1950 COVID-19 Vaccine (#1) 1957 DTaP,Tdap,and Td Vaccines (1 - Tdap) 10/12/1971 Pneumococcal Vaccine: 50+ Ye ars (1 of 1 - PCV) 2002 Zoster Vaccines (1 of 2) 2002 Colorectal Cancer Screening: Colonoscopy 03/07/2022 Falls Risk Assessment 03/07/2022 Hepatitis C Screening 03/07/2022 Medicare Annual Wellness Visit 03/07/2022 Osteoporosis Screening (Bone Density Screening) 03/07/2022 Social Influencers of Health Screening 03/07/2022 Depression Screening 04/09/2024 Influenza Vaccine (#1) 2024 RSV Immunization Adult [...] complete this topic RSV Immunization Patients Un ajs 20 months Aged Out No longer eligible b ased on patient's age to complete this topic Varicella Vaccines Aged Out No longer eligible based on patient's age to complete this topic Insurance MEDICARE Care Teams Manager Gallery Relationship Specialty Start Date End Date Nedra Alexander MD PCP - General Internal Medicine 10/13/19
== END 2024-11-03 10:50 | disposition home or self-care (01) ==
LOC: HO.HMGCX 10:49
PROVIDERS: PCP Internal Medicine; Visit Provider Internal Medicine
DX: R10.9 Unspecified abdominal pain (principal)
CPT/HCPCS: 76775

== ENCOUNTER → 2024-11-03 10:51 | Outpatient (BNV) | payer MEDICARE, SELFPAY | PROVIDERS: PCP Internal Medicine; Visit Provider Radiology Diagnostic Radiology | DX: R93.422 Abnormal radiologic findings on diagnostic imaging of left kidney (principal) | CPT/HCPCS: 76775 ==

== ENCOUNTER 2025-01-05 11:43 | Outpatient (AMB) | payer MEDICARE, SELFPAY ==
[2025-01-05 11:51] VITALS: BP 128/78; PULSE 79; RESP 18; TEMP 36.7; O2SAT 97; BMI 29.4
--- NOTE | 2025-01-05 11:51 | A.OFFPC_ITS ---
Vital Signs 01/05/25 11:51 Height 5 ft 3 in Weight 166 lb BMI 29.4 BP 128/78 Blood Pressure Location Lt brachial Position Sitting Respiration 18 Pulse 79 Pulse Source Pulse Oximeter Temp 98.0 F Temp Source Oral Pulse Oximetry (%) 97 Oxygen Delivery Method Room Air Intake Visit Reasons: 6 months f/up Intake Note: Pt is here today for 6 months follow up visit. Allergies latex Allergy (Unknown, Verified 10/20/24 14:20) unknown bee pollen Allergy (Verified 10/20/24 14:20) hives, swelling Medication List - Last Reconciled 01/05/25 by Nedra Alexander MD allopurinol 100 mg PO DAILY carvedilol (Coreg) 1 1/2 tabs orally 2 times a day; must administer with a meal/food NO SUBSTITUTION colchicine 0.6 mg PO BID PRN folic acid 1 mg PO DAILY meloxicam 15 mg PO DAILY methotrexate sodium 7.5 mg (3 x 2.5 mg) PO QWEEK phentermine 15 mg PO DAILY pravastatin 20 mg PO DAILY triamterene-hydrochlorothiazid 37.5-25 mg 1 tab PO DAILY Tobacco use date assessed: 01/05/25 Fall risk assessment: No Falls in past year Last assessed Fall Risk: 01/05/25 Dental Screening Dental Screen Date: 09/08/24 HPI 6 months f/up HPI Details Pt presents for f/u HTN, hyperlipid, gout, stable on meds. Patient reports increased blood pressure since she started taking phentermine prescribed by weight management program at [facility]. [facility] Medical History (Updated 01/05/25 @ 12:48 by Nedra Alexander MD) Nephrolithiasis Tongue mass Tongue abnormality Venous insufficiency of both lower extremities COPD (chronic obstructive pulmonary disease) Hyperlipidemia Radiculopathy MCNEIL (dyspnea on exertion) Dysplastic nevi Postmenopausal Schatzki's ring Annual physical exam Headache HTN (hypertension) Asthma Surgical History History of right knee surgery H/O colonoscopy No pertinent past surgical history Family History Father History of heart attack CVD (cardiovascular disease) Rheumatoid arthritis Mother Gout Social History Housing: House Alcohol intake: current Alcohol intake frequency: does not drink Patient Tobacco Use Status: Never used Tobacco e-Cigarette/Vaping Use: Never Used Second Hand Smoke Exposure: No service: No Current occupational status: retired Cognitive needs: No Hearing needs: No Vision needs: Yes Questionnaire PHQ-9 Over the last 2 weeks, how often have you been bothered by any of the following problems? 1. Little interest or pleasure in doing things: not at all 2. Feeling down, depressed, or hopeless: not at all 3. Trouble falling or staying asleep, or sleeping too much: not at all 4. Feeling tired or having little energy: not at all 5. Poor appetite or overeating: not at all 6. Feeling bad about yourself - or that you are a failure or have let yourself or your family down: not at all 7. Trouble concentrating on things, such as reading the newspaper or watching television: not at all 8. Moving or speaking so slowly that other people could have noticed. Or the opposite - being so fidgety or restless that you have been moving around a lot more than usual: not at all 9. Thoughts that you would be better off or of hurting yourself in some way: not at all Total score: 0 Depression Screening Interpretation: Negative Depression Screening Done: Yes Source: Developed by Drs. Audi Mae, Lisy Prajapati, Idris Garcia and colleagues, with an educational travis from [employer]. Thrive Questionnaire Date Thrive assessed: 09/08/24 LATONYA-7 AMB Questionnaire LATONYA-7 Date LATONYA - 7 assessed: 09/08/24 Feeling nervous, anxious, or on edge: 0 = Not at all Not being able to stop or control worryin = Not at all Worrying too much about different things: 0 = Not at all Trouble relaxin = Not at all Being so restless that it is hard to sit still: 0 = Not at all Becoming easily annoyed or irritable: 0 = Not at all Feeling afraid as if something awful might happen: 0 = Not at all Total LATONYA-7 score (0-4 normal; 5-9 mild; 10-14 moderate; 15-21 severe): 0 Source: Developed by Drs. Audi LLisy Segura, Idris Garcia and colleagues, with an educational travis from [employer]. Review of Systems Const All systems reviewed & are unremarkable except as noted in HPI and below Eyes Reports no additional complaints ENT Reports no additional complaints Card Reports no additional complaints Resp Reports no additional complaints GI Reports no additional complaints Reports no additional complaints Physical exam (Primary Care) Vital Signs: Last Vital Signs Temp 98.0 F 01/05/25 11:51 Pulse 79 01/05/25 11:51 Resp 18 01/05/25 11:51 BP 128/78 01/05/25 11:51 Pulse Ox 97 01/05/25 11:51 Oxygen Delivery Method Room Air 01/05/25 11:51 BMI result Body Mass Index 29.4 Tobacco/Smoking Status: Tobacco use Status Tobacco use date assessed 01/05/25 01/05/25 12:00 Patient Tobacco Use Status Never used Tobacco 01/05/25 11:52 e-Cigarette/Vaping Use Never Used 01/05/25 11:52 PHQ-9: PHQ-9 Score PHQ-9: Total score 0 01/05/25 11:53 Depression Screening Interpretation: Negative Thrive Assessment: Date of Thrive Assessment Date Thrive assessed 09/08/24 01/05/25 11:52 Const General: no acute distress HENMT Head: Yes normal to inspection Mouth: Normal oral and palatal mucosa present Throat: Yes posterior oropharynx normal Neck Neck: Yes no lymphadenopathy and Yes supple Resp Effort & Inspection: normal respiratory effort Auscultation: clear to auscultation bilaterally Cardio Rhythm: regular rhythm Heart sounds: S1 normal heart sound present and S2 normal heart sound present GI Inspection: Yes normal to inspection Palpation (GI): Soft to palpation Percussion: Yes normal to percussion Auscultation: normal bowel sounds Coding Level of Care Code Est Pt Level 4 (02578) Diagnoses HTN (hypertension) I10 Vitamin D deficiency E55.9 Seropositive rheumatoid arthritis M05.9 Assessment & Plan Assessment & Plan (1) HTN (hypertension): Code(s): I10 - Essential (primary) hypertension Category: Medical Plan: cont meds. pt will stop Phentermine (2) Vitamin D deficiency: Code(s): E55.9 - Vitamin D deficiency, unspecified Category: Medical Plan: Continue vitamin-D (3) Seropositive rheumatoid arthritis: Comment: + RF onset age 47, in remission Code(s): M05.9 - Rheumatoid arthritis with rheumatoid factor, unspecified Category: Medical Plan: Patient has not been taking methotrexate Orders: Orders Comprehensive Merrill. Panel Fast Today E55.9 - Vitamin D deficiency, unspecified, E78.5 - Hyperlipidemia, unspecified, I10 - Essential (primary) hypertension, M05.9 - Rheumatoid arthritis with rheumatoid factor, unspecified, M10.9 - Gout, unspecified Lipid Panel Today E55.9 - Vitamin D deficiency, unspecified, E78.5 - Hyperlipidemia, unspecified, I10 - Essential (primary) hypertension, M05.9 - Rheumatoid arthritis with rheumatoid factor, unspecified Rheumatoid Factor Today E55.9 - Vitamin D deficiency, unspecified, E78.5 - Hyperlipidemia, unspecified, I10 - Essential (primary) hypertension, M05.9 - Rheumatoid arthritis with rheumatoid factor, unspecified Hemoglobin A1c Today E55.9 - Vitamin D deficiency, unspecified, E78.5 - Hyperlipidemia, unspecified, I10 - Essential (primary) hypertension, M05.9 - Rheumatoid arthritis with rheumatoid factor, unspecified Uric Acid Today E55.9 - Vitamin D deficiency, unspecified, E78.5 - Hyperlipidemia, unspecified, I10 - Essential (primary) hypertension, M05.9 - Rheumatoid arthritis with rheumatoid factor, unspecified Medications: New carvedilol must administer with a meal/food 25 mg PO BID 180 tabs 1RF doxycycline hyclate 100 mg PO BID 20 tabs 0RF Refilled allopurinol 100 mg PO DAILY 90 tabs 3RF triamterene-hydrochlorothiazid 37.5-25 mg NO SUBSTITUTION 1 tab PO DAILY 90 tabs 3RF Discontinued methotrexate sodium Discontinued Reason: Doctor's Order 7.5 mg (3 x 2.5 mg) PO QWEEK 36 tabs 1RF M05.9 - Rheumatoid arthritis with rheumatoid factor, unspecified carvedilol (Coreg) Discontinued Reason: Doctor's Order 1 1/2 tabs orally 2 times a day; must administer with a meal/food NO SUBSTITUTION 270 tabs 3RF
== END 2025-01-05 12:44 | disposition home or self-care (01) ==
LOC: HO.HMCC 11:43
PROVIDERS: PCP Internal Medicine; Visit Provider Internal Medicine
DX: I10 Essential (primary) hypertension (principal); E55.9 Vitamin D deficiency, unspecified; M05.9 Rheumatoid arthritis with rheumatoid factor, unspecified

== ENCOUNTER → 2025-01-05 11:43 | Outpatient (BNVA) | payer MEDICARE, SELFPAY | PROVIDERS: PCP Internal Medicine; Visit Provider Internal Medicine | DX: I10 Essential (primary) hypertension (principal); E78.5 Hyperlipidemia, unspecified; M10.9 Gout, unspecified; E55.9 Vitamin D deficiency, unspecified; M05.9 Rheumatoid arthritis with rheumatoid factor, unspecified; Z79.899 Other long term (current) drug therapy | CPT/HCPCS: 96127; 99212 ==

== ENCOUNTER 2025-01-20 07:31 | Outpatient (REF) | payer MEDICARE, SELFPAY ==
--- OUTSIDE RECORDS SUMMARY | 2025-01-20 07:34 | XMS_ITS | Encounter Summary ---
Author Organization [facility] Address [address] [place] [address] Care Team Providers Care Labor Service Representative Name Role Phone Nedra Alexander MD Primary Care Provider [phone] Encounter Details Date Type Department Care Team (Late st Contact Info) Description 11/12/2024 Lab Requisition [facility] [address] [place] [address] Audi Bridges DDS [address] [place] [phone] Benign neoplasm of tongue Social History Tobacco Use Types Packs/Day Years Used Date Smoking Tobacco: Never Assessed Comments Unknown Sex and Gender Information Value Date Recorded Sex Assigned at Not on file Legal Sex Female 1:28 PM EST Gender Identity Not on file Sexual Orientation Not on file documented as of this encounter Plan of Treatment Upcoming Encounters Date Type Department Care Team (Late st Contact Info) Description 03/18/2025 9:00 AM EST Consult Bariatric Surgery - [place] [address] [address] Steff Wilkins, RD [address] [address] 05/21/2025 9:00 AM EST Office Visit Bariatric Surgery [facility] [address] [address] Miranda Vizcaino MD [address] [place] [phone] documented as of this encounter Procedures Procedure Name Priority Date/Time Associated Diagnosis Comments TISSUE EXAM Routine 11/12/2024 Benign neoplasm of tongue documented in this encounter Results * Tissue Exam (11/12/2024) Final Diagnosis Tongue, right lateral-biopsy: SUBMUCOSAL FIBROMA 11/13/2024 1:39 PM EDT [facility] Clinical Information 1 year hx of asymptomatic slowing growing pink lesion to right lateral tongue Irritation fibroma 11/13/2024 1:39 PM EDT [facility] Gross Description A. Tongue, right lateral: Labeled R lateral tongue lesion . Received in formalin is a 0.5 cm in greatest diameter white, rubbery, polypoid portion of epithelial tissue which is inked green at the probable base and bisected to show fibrotic cut surfaces. The specimen is submitted in entirety in one cassette, two pieces, multiple levels on one slide. TS 11/13/2024 1:39 PM EDT [facility] Disclaimer Unless otherwise specified, all tissue is 10% NB formalin fixed and paraffin embedded. 11/13/2024 1:39 PM EDT [facility] Tissue Tongue structure / Unknown 11/12/2024 11/12/2024 12:55 PM EDT Audi Bridges DDS LAB PATHOLOGY ORDERABLES Fi nal Result [facility] [address] [place] [address], documented in this encounter Visit Diagnoses Diagnosis Benign neoplasm of tongue documented in this encounter Care Teams Labor Service Representative Relationship Specialty Start Date End Date Nedra Alexander MD [address] [place] [address] PCP - General Internal Medicine 12/10/24 documented as of this encounter
--- OUTSIDE RECORDS SUMMARY | 2025-01-20 07:34 | XMS_ITS | Clinical Summary ---
Author Organization [facility] Address [address] [place] [address] Phone Care Team Providers Care Physician Relations Manager Name Role Phone Nedra Alexander MD Primary Care Provider [phone] Allergies Active Allergy Reactions Criticality Noted Date Comments Bee Venom Protein (Honey Bee) 2019 Latex 01/25/2009 Penicillins 12/23/2008 Medications colchicine (COLCRYS) 0.6 mg tablet Take 1 tablet (0.6 mg total) by mouth 1 (one) time each day. 11/18/2024 Active allopurinoL (ZYLOPRIM) 100 mg tablet Take 1 tablet (100 mg total) by mouth 1 (one) time each day. 10/01/2024 Active carvediloL (Coreg) 12.5 mg tablet Take 1 tablet (12.5 mg total) by mouth 2 (two) times a day with meals. 08/28/2013 Active hydroCHLOROthia zide (MICROZIDE) 12.5 mg capsule Take 1 capsule (12.5 mg total) by mouth 1 (one) time each day in the morning. Active triamterene-hyd roCHLOROthiazid e (MAXZIDE-25) 37.5-25 mg per tablet Take 1 tablet by mouth 1 (one) time each day. 10/03/2015 Active omeprazole (PriLOSEC) [address] capsule Take 1 capsule (40 mg total) by mouth if needed. 10/04/2015 Active folic acid (FOLVITE) 1 mg tablet Take 1 tablet (1,000 mcg total) by mouth 1 (one) time each day. Active calcium carbonate-vit D3-min 600 mg-10 mcg (400 unit) tablet 400 tablets by chew route 1 (one) time each day. 06/11/2014 Active phentermine 15 mg capsule Take 1 capsule (15 mg total) by mouth 1 (one) time each day before breakfast. Max Daily Amount: 15 mg 30 each 12/11/2024 Active Encounters Date Type Department Care Team Description 12/11/2024 3:30 PM EDT Consult Bariatric Surgery - [place] 175 [facility] [address] [place] [address] Miranda Vizcaino MD Class 1 obesity due to excess calories with body mass index (BMI) of 30.0 to 30.9 in adult, unspecified whether serious comorbidity present (Primary Dx) 11/12/2024 Lab Requisition [facility] [address] [facility] [place] [address] Audi Bridges DDS Benign neoplasm of tongue from Last 3 Months Social History Tobacco Use Types Packs/Day Years Used Date Smoking Tobacco: Never Assessed Comments Unknown Sex and Gender Information Value Date Recorded Sex Assigned at Not on file Legal Sex Female 1:28 PM EST Gender Identity Not on file Sexual Orientation Not on file Last Filed Vital Signs Vital Sign Reading Time Taken Comments Blood Pressure 110/68 12/11/2024 3:46 PM EDT Pulse 85 12/11/2024 3:46 PM EDT Temperature 36.6 C (97.8 F) 12/11/2024 3:46 PM EDT Respiratory Rate - - Oxygen Saturation - - Inhaled Oxygen Concentration - - Weight 75.8 kg (167 lb) 12/11/2024 3:46 PM EDT Height 157.5 cm (5' 2 ) 12/11/2024 3:46 PM EDT Body Mass Index 30.54 12/11/2024 3:46 PM EDT Plan of Treatment Upcoming Encounters Date Type Department Care Team (Late st Contact Info) Description 03/18/2025 9:00 AM EST Consult Bariatric Surgery - [address] [address] Steff Wilkins, RD [address] [address] 05/21/2025 9:00 AM EST Office Visit Bariatric Surgery - [address] [place] [address] Miranda Vizcaino MD [facility] [place] [address] Health Maintenance Due Date Last Done Comments Breast Cancer Screening 1950 Colorectal Cancer Screening: Colonoscopy 1950 DTaP,Tdap,and Td Vaccines (1 - Tdap) 10/12/1971 Pneumococcal Vaccine: 50+ Years (1 of 2 - PCV) 10/12/1971 RSV Immunization Adult Patients (1 - Risk 50-74 years 1-dose series) 2002 Zoster Vaccines (1 of 2) 2002 Cholesterol Screening (Lipid Panel) 03/07/2022 Falls Risk Assessment 03/07/2022 Hepatitis C Screening 03/07/2022 Medicare Annual Wellness Visit 03/07/2022 Osteoporosis Screening (Bone Density Screening) 03/07/2022 Social Influencers of Health Screening 03/07/2022 Depression Screening 04/09/2024 COVID-19 Vaccine ( season) 2024 12/25/2020, 12/04/2020 Influenza Vaccine (#1) 2024 , 02/10/2023, 04/15/2018, Additional history exists Hypertension/CHF/CAD Annual BMP Blood Test 12/11/2024 HIB Vaccines Aged Out No longer eligi [...] to complete this topic RSV Immunization Patients Under 20 months Aged Out No longer eligible based on patient's age to complete this topic Varicella Vaccines Aged Out No longer eligible based on patient's age to complete this topic Procedures Procedure Name Priority Date/Time Associated Diagnosis Comments TISSUE EXAM Routine 11/12/2024 Benign neoplasm of tongue from Last 3 Months Results * Tissue Exam (11/12/2024) Final Diagnosis Tongue, right lateral-biopsy: SUBMUCOSAL FIBROMA 11/13/2024 1:[address] [facility] Clinical Information 1 year hx of asymptomatic slowing growing pink lesion to right lateral tongue Irritation fibroma 11/13/2024 1:[address] [facility] Gross Description A. Tongue, right [...] one slide. TS 11/13/2024 1:[address] [facility] Disclaimer Unless otherwise specified, all tissue is 10% NB formalin fixed and paraffin embedded. 11/13/2024 1:[address] [facility] Tissue Tongue structure / Unknown 11/12/2024 11/12/2024 12:55 PM EDT us Audi Bridges DDS LAB PATHOLOGY ORDERABLES Fi nal Result [facility] [address] [place] [address], from Last 3 Months Insurance MEDICARE [facility] Care Teams Physician Relations Manager Relationship Specialty Start Date End Date Nedra Alexander MD [facility] [place] [address] PCP - General Internal Medicine 12/10/24
[2025-01-20 11:04] LABS: Alanine Aminotransferase 29 U/L (0-31); Albumin Level 4.1 g/dL (3.5-5.0); Alkaline Phosphatase 76 U/L (39-117); Anion Gap 12 (12-20); Aspartate Amino Transferase 26 U/L (5-31); Blood Urea Nitrogen 19 mg/dL (9-16); Calcium 9.2 mg/dL (8.4-10.2); Carbon Dioxide 28 mmol/L (22-29); Chloride 107 mmol/L (96-108); Cholesterol 173 mg/dL (<200); Estimated Glomerular Filt Rate > 60; HDL Cholesterol 46 mg/dL (>40); Potassium 3.8 mmol/L (3.3-5.1); Sodium 143 mmol/L (135-145); Total Protein 6.6 g/dL (6.5-8.0); Triglycerides 80 mg/dL (<150); Uric Acid 6.3 mg/dL (2.4-5.7)
== END 2025-01-20 07:32 | disposition home or self-care (01) ==
LOC: HO.HMGCLDS 07:31
PROVIDERS: PCP Internal Medicine; Visit Provider Internal Medicine
DX: M10.9 Gout, unspecified (principal); I83.12 Varicose veins of left lower extremity with inflammation; I10 Essential (primary) hypertension; E55.9 Vitamin D deficiency, unspecified; E78.5 Hyperlipidemia, unspecified; M05.9 Rheumatoid arthritis with rheumatoid factor, unspecified; Z13.1 Encounter for screening for diabetes mellitus; Z79.899 Other long term (current) drug therapy
CPT/HCPCS: 36415; 80053; 80061; 83036; 84550; 86431; 99212

== ENCOUNTER 2025-01-20 07:48 | Outpatient (AMB) | payer MEDICARE, SELFPAY ==
[2025-01-20 07:51] VITALS: BP 128/88; PULSE 86; RESP 15; TEMP 36.6; O2SAT 97; BMI 29.2
--- NOTE | 2025-01-20 07:51 | AM.OFFWIN_ITS ---
Intake Vital Signs 01/20/25 07:51 Height 5 ft 3 in Weight 165 lb BMI 29.2 BP 128/88 Blood Pressure Location Rt brachial Position Sitting Respiration 15 Pulse 86 Pulse Source Pulse Oximeter Temp 97.8 F Temp Source Oral Pulse Oximetry (%) 97 Oxygen Delivery Method Room Air Intake Visit Reasons: EP-lt foot pain Intake Note: Pt is here today c/o Lt foot swollen and painful hx of uric acid: Pt states was seen by podiatry 2 mo. ago, had a xray of foot and it was fine Patient Tobacco Use Status: Never used Tobacco Allergies latex Allergy (Unknown, Verified 01/20/25 07:52) unknown bee pollen Allergy (Verified 01/20/25 07:52) hives, swelling Medication List - Last Reconciled 01/20/25 by Tony Pimentel MD allopurinol 100 mg PO DAILY carvedilol 25 mg PO BID colchicine 0.6 mg PO BID PRN folic acid 1 mg PO DAILY meloxicam 15 mg PO DAILY pravastatin 20 mg PO DAILY triamterene-hydrochlorothiazid 37.5-25 mg 1 tab PO DAILY HPI EP-lt foot pain HPI Details History of Present Illness The patient is a 74-year-old female presenting with severe pain and swelling in the left foot. Gout: - The patient reported having a history of gout. - Current symptoms include severe pain a nd swelling in the foot. - The pain makes walking difficult. - she is taking allopurinol - She experiences flare-ups, with the cu rrent one being particularly severe. - she is concerned about clot in her leg as she talked to her Son who is in health care and he recommeded that she gets US of her foot explain to patient that we dont do US of foot, but since she has varicose viens and is feeling sore in her calf i can order the US for lower leg, to which she agreed she has already seen Orthopedic for her foot and was told its not Orthopedic problem Social History: - The patient is planning a trip to [place] in two weeks, which heightens her concern about the current gout symptoms and ability to walk. Diagnostic Results: - Previous foot x-ray was reported as no rmal. Problem List - Gout - Varicose veins Plan - I will prescribe prednisone for three days and indomethacine for up to a week, I have sent that for a month, she can keep it for further flare ups - It is discussed that the patient shoul d continue with allopurinol for long- term gout management. - Ultrasound of the lower extremity will be ordered to assess any underlying vascular issues, primarily for peace of mind before the trip. - Encouraged to try indomethacine, takin g it one with breakfast and then again 12 hours later, and evaluating its effect on pain management. we tried booking her US left leg at 9:30 am today, but patient declined as she had another commitment, then we offered 1:30 pm, she declined again and said she will call us if she is available and left Review of Systems - General: No fever no chills - Neurological: No headaches no dizziness - Ear nose throat: No sore throat no hearing difficulty no ear pain - Cardiovascular: No syncope, no chest pain, no palpitations - Gastrointestinal: No nausea vomiting or diarrhea Physical Exam General: No acute distress HEENT: No acute findings Neck: Supple Respiratory system: Able to talk in full sentences, no audible wheeze Gastrointestinal: No pain Extremities: mildly Swollen and painful left foot, history of gout, varicose veins observed in leg , mild calf discomfort, Guera sign negative, able to move toes with discomfort, Neuro Vascular intact, ankle mobile, no skin erythema [employer] R INSTRUCTOR: Alert awake oriented x3 motor intact Skin: Normal turgor PFSH Medical History Nephrolithiasis Tongue mass Tongue abnormality Venous insufficiency of both lower extremities COPD (chronic obstructive pulmonary disease) Hyperlipidemia Radiculopathy MCNEIL (dyspnea on exertion) Dysplastic nevi Postmenopausal Schatzki's ring Annual physical exam Headache HTN (hypertension) Asthma Surgical History History of right knee surgery H/O colonoscopy No pertinent past surgical history Family History Father History of heart attack CVD (cardiovascular disease) Rheumatoid arthritis Mother Gout Social History Housing: House Alcohol intake: current Alcohol intake frequency: does not drink Patient Tobacco Use Status: Never used Tobacco e-Cigarette/Vaping Use: Never Used Second Hand Smoke Exposure: No service: No Current occupational status: retired Cognitive needs: No Hearing needs: No Vision needs: Yes Physical Exam Vital Signs: Last Vital Signs Temp 97.8 F 01/20/25 07:51 Pulse 86 01/20/25 07:51 Resp 15 01/20/25 07:51 BP 128/88 01/20/25 07:51 Pulse Ox 97 01/20/25 07:51 Oxygen Delivery Method Room Air 01/20/25 07:51 BMI result Body Mass Index 29.2 Assessment & Plan Assessment & Plan (1) Gout of foot: Code(s): M10.9 - Gout, unspecified Qualifiers: Chronicity: acute Gout etiology: unspecified cause Laterality: left Qualified Code(s): M10.9 - Gout, unspecified (2) Pain in left lower leg: Code(s): M79.662 - Pain in left lower leg (3) Varicose veins of left lower extremity with inflammation: Code(s): I83.12 - Varicose veins of left lower extremity with inflammation Plan History of Present Illness The patient is a 74-year-old female presenting with severe pain and swelling in the left foot. Gout: - The patient reported having a history of gout. - Current symptoms include severe pain and swelling in the foot. - The pain makes walking difficult. - she is taking allopurinol - She experiences flare-ups, with the current one being particularly severe. - she is concerned about clot in her leg as she talked to her Son who is in health care and he recommeded that she gets US of her foot explain to patient that we dont do US of foot, but since she has varicose viens and is feeling sore in her calf i can order the US for lower leg, to which she agreed she has already seen Orthopedic for her foot and was told its not Orthopedic problem Social History: - The patient is planning a trip to [place] in two weeks, which heightens her concern about the current gout symptoms and ability to walk. Diagnostic Results: - Previous foot x-ray was reported as normal. Problem List - Gout - Varicose veins Plan - I will prescribe prednisone for three days and indomethacine for up to a week, I have sent that for a month, she can keep it for further flare ups - It is discussed that the patient should continue with allopurinol for long- term gout management. - Ultrasound of the lower extremity will be ordered to assess any underlying vascular issues, primarily for peace of mind before the trip. - Encouraged to try indomethacine, taking it one with breakfast and then again 12 hours later, and evaluating its effect on pain management. we tried booking her US left leg at 9:30 am today, but patient declined as she had another commitment, then we offered 1:30 pm, she declined again and said she will call us if she is available and left Orders: Orders US venous duplex LE Today M79.662 - Pain in left lower leg Medications: New indomethacin administer with food or milk 50 mg PO BID 60 caps 0RF 30 days prednisone 20 mg PO DAILY 7 tabs 0RF 7 days Coding Level of Care Code Est Pt Level 4 (37128) Diagnoses Acute gout of left foot, unspecified cause M10.9 Chronicity: acute Gout etiology: unspecified cause Laterality: left Pain in left lower leg M79.662 Varicose veins of left lower extremity with inflammation I83.12
== END 2025-01-20 08:39 | disposition home or self-care (01) ==
PROVIDERS: PCP Internal Medicine; Visit Provider Internal Medicine
DX: M10.9 Gout, unspecified (principal); M79.662 Pain in left lower leg; I83.12 Varicose veins of left lower extremity with inflammation

== ENCOUNTER 2025-02-06 08:39 | Outpatient (AMB) | payer MEDICARE, SELFPAY ==
--- OUTSIDE RECORDS SUMMARY | 2022-05-25 17:28 | XMS_ITS | Continuity of Care Document ---
Author Organization [facility] Address [address] [place] [address] Dr [address] [place] [phone] Phone Care Team Providers Care Refrigerator Room Clerk Name Role Phone Bernardino Christian MD, FACS, RVT Unavailable Unavailable Advance Directives Directive Yes / No Effective Date File Name No Information Encounters Encounter Description Practice Location Reason(s) For Visit Diagnoses Date Provider Providers Copied on Encounter [facility], [address], [place], [id number], tel:[phone] [address] [facility] No Information 3 Sloan Mancilla. [address] [place] [address], [address], [place]. tel:[phone] Family History Family Member Type Diagnosis Age At Onset No Information Payers Payer name Insurance type Covered green party ID Authoriza tion(s) No Information Social [...]
[2025-02-06 08:43] VITALS: BP 126/86; PULSE 87; RESP 16; TEMP 36.8; O2SAT 96; BMI 28.7
--- NOTE | 2025-02-06 08:43 | MHC.PC.OV ---
Vital Signs 02/06/25 08:43 Height 5 ft 3 in Weight 162 lb BMI 28.7 BP 126/86 Blood Pressure Location Lt brachial Position Sitting Respiration 16 Pulse 87 Pulse Source Pulse Oximeter Temp 98.2 F Temp Source Oral Pulse Oximetry (%) 96 Oxygen Delivery Method Room Air Intake Visit Reasons: swollen foot Intake Note: Pt is here today for a follow up visit after being seen in walk in for L foot pain. Allergies latex Allergy (Unknown, Verified 02/06/25 08:49) unknown bee pollen Allergy (Verified 02/06/25 08:49) hives, swelling losartan Adverse Reaction (Intermediate, Verified 02/06/25 10:54) Dizziness Medication List - Last Reconciled 02/06/25 by Nedra Alexander MD allopurinol 200 mg (2 x 100 mg) PO DAILY carvedilol 25 mg PO BID colchicine 0.6 mg PO BID PRN folic acid 1 mg PO DAILY indomethacin 50 mg PO BID 30 days meloxicam 15 mg PO DAILY pravastatin 20 mg PO DAILY prednisone 20 mg PO DAILY triamterene-hydrochlorothiazid 37.5-25 mg 1 tab PO DAILY Tobacco use date assessed: 02/06/25 Fall risk assessment: No Falls in past year Last assessed Fall Risk: 02/06/25 Dental Screening Dental Screen Date: 09/08/24 HPI swollen foot HPI Details Patient presents for the follow-up of visit to walk in. She developed acute swelling and pain and on the dorsum of left foot and ankle. She denies any injury fever or chills. Patient was prescribed prednisone and indomethacin and the symptoms resolved. Patient had a similar episode before was diagnosed with gout. She has been taking allopurinol 100 mg daily but uric acid level was higher than before at 6.3. X-ray of left foot was negative for osteoarthritis. Hypertension is controlled on the current medications. [facility] Medical History (Updated 02/06/25 @ 09:11 by Nedra Alexander MD) Gout Nephrolithiasis Tongue mass Tongue abnormality Venous insufficiency of both lower extremities COPD (chronic obstructive pulmonary disease) Hyperlipidemia Radiculopathy MCNEIL (dyspnea on exertion) Dysplastic nevi Postmenopausal Schatzki's ring Annual physical exam Headache HTN (hypertension) Asthma Surgical History History of right knee surgery H/O colonoscopy No pertinent past surgical history Family History Father History of heart attack CVD (cardiovascular disease) Rheumatoid arthritis Mother Gout Social History Housing: House Alcohol intake: current Alcohol intake frequency: does not drink Patient Tobacco Use Status: Never used Tobacco e-Cigarette/Vaping Use: Never Used Second Hand Smoke Exposure: No service: No Current occupational status: retired Cognitive needs: No Hearing needs: No Vision needs: Yes Questionnaire Thrive Questionnaire Date Thrive assessed: 09/08/24 LATONYA-7 AMB Questionnaire LATONYA-7 Date LATONYA - 7 assessed: 09/08/24 Source: Developed by Drs. Audi Mae, Lisy Prajapati, Idris Garcia and colleagues, with an educational travis from [employer]. Review of Systems Const All systems reviewed & are unremarkable except as noted in HPI and below Eyes Reports no additional complaints ENT Reports no additional complaints Card Reports no additional complaints Resp Reports no additional complaints GI Reports no additional complaints Physical exam (Primary Care) Vital Signs: Last Vital Signs Temp 98.2 F 02/06/25 08:43 Pulse 87 02/06/25 08:43 Resp 16 02/06/25 08:43 BP 126/86 02/06/25 08:43 Pulse Ox 96 02/06/25 08:43 Oxygen Delivery Method Room Air 02/06/25 08:43 BMI result Body Mass Index 28.7 Tobacco/Smoking Status: Tobacco use Status Tobacco use date assessed 02/06/25 02/06/25 08:52 Patient Tobacco Use Status Never used Tobacco 02/06/25 08:43 e-Cigarette/Vaping Use Never Used 02/06/25 08:43 Thrive Assessment: Date of Thrive Assessment Date Thrive assessed 09/08/24 02/06/25 08:43 Const General: no acute distress HENMT Face and sinus: Yes normal facial exam Throat: Yes posterior oropharynx normal Neck Neck: Yes supple Resp Effort & Inspection: normal respiratory effort Auscultation: clear to auscultation bilaterally Cardio Rhythm: regular rhythm Heart sounds: S1 normal heart sound present and S2 normal heart sound present Extrem Other: Left foot without swelling erythema warmth full range of motion in left ankle General: Yes no clubbing, cyanosis or edema Coding Level of Care Code Est Pt Level 4 (21709) Diagnoses Gout M10.9 HTN (hypertension) I10 Assessment & Plan Assessment & Plan (1) Gout: Code(s): M10.9 - Gout, unspecified Category: Medical Plan: Increase allopurinol to 200 mg a day and check uric acid level in 2 months, patient is going on the trip to [place] and was given the refill on prednisone to take for any recurrent significant pain and swelling. Patient also was prescribed colchicine to take as needed for moderate pain and swelling (2) HTN (hypertension): Code(s): I10 - Essential (primary) hypertension Category: Medical Plan: Continue current medications patient is aware that hydrochlorothiazide could increase uric acid level but she declined to change her blood pressure medications Orders: Orders Comprehensive [place]. Panel Fast 1 Month I10 - Essential (primary) hypertension, M10.9 - Gout, unspecified Uric Acid 1 Month I10 - Essential (primary) hypertension, M10.9 - Gout, unspecified Hemoglobin A1c 1 Month I10 - Essential (primary) hypertension, M10.9 - Gout, unspecified Medications: New prednisone 20 mg PO DAILY 7 tabs 0RF Changed From allopurinol 100 mg PO DAILY 90 tabs 3RF To allopurinol 200 mg (2 x 100 mg) PO DAILY 180 tabs 3RF Refilled colchicine Please take it always with milk or food, stop taking if any diarrhea or epigastric pain develop 0.6 mg PO BID PRN 30 tabs 0RF Moderate pain Discontinued meloxicam Discontinued Reason: Doctor's Order 15 mg PO DAILY 90 tabs 0RF indomethacin administer with food or milk Discontinued Reason: Doctor's Order 50 mg PO BID 30 days 60 caps 0RF
--- OUTSIDE RECORDS SUMMARY | 2025-02-06 08:58 | XMS_ITS | Encounter Summary ---
Author Organization [facility] Address [id number] [place] [phone] Care Team Providers Care Rug Dyer Helper Name Role Phone Nedra Alexander MD Primary Care Provider Reason for Visit * Reason Onset Date Comments Med Refill 01/22/2025 Phentermine 15 m g Encounter Details Date Type Department Care Team (Late Contact Info) Description 01/22/2025 Telephone Bariatric Surgery - [place] [address] [address] Miranda Vizcanio MD [address] [place] [phone] Social History Tobacco Use Types Packs/Day Years Used Date Smoking Tobacco: Never Assessed Comments Unknown Sex and Gender Information Value Date Recorded Sex Assigned at Not on file Legal Sex Female 1:28 PM EST Gender Identity Not on file Sexual Orientation Not on file documented as of this encounter Progress Notes * Mariangel Torres - 01/22/2025 11:33 AM EDT Patient requesting refill on Phentermine 15 mg documented in this encounter Plan of Treatment Upcoming Encounters Date Type Department Care Team (Late st Contact Info) Description 03/18/2025 9:00 AM EST Consult Bariatric Surgery - [place] [address] [phone] Steff Wilkins, RD [address] [phone] 05/21/2025 9:00 AM EST Office Visit Bariatric Surgery - [address] [place] [address] Miranda Vizcaino MD [address] [place] [phone] documented as of this encounter Visit Diagnoses Not on filedocumented in this encounter Care Teams Rug Dyer Helper Relationship Specialty Start Date End Date Nedra Alexander MD [place] [address] PCP - General Internal Medicine 12/10/24 documented as of this encounter
--- OUTSIDE RECORDS SUMMARY | 2025-02-06 08:58 | XMS_ITS | Clinical Summary ---
Author Organization [address] [facility] Address [address] [place] [address] Phone Care Team Providers Care Partnership Marketing Manager Name Role Phone Nedra Alexander MD Primary Care Provider [phone] Allergies Active Allergy Reactions Criticality Noted Date Comments Bee Venom Protein (Honey Bee) 2019 Latex 01/25/2009 Penicillins 12/23/2008 Medications colchicine (COLCRYS) 0.6 mg tablet Take 1 tablet (0.6 mg total) by mouth 1 (one) time each day. 5 Active allopurinoL (ZYLOPRIM) 100 mg tablet Take 1 tablet (100 mg total) by mouth 1 (one) time each day. 5 Active carvediloL (Coreg) 12.5 mg tablet Take 1 tablet (12.5 mg total) by mouth 2 (two) times a day with meals. 4 Active hydroCHLOROthia zide (MICROZIDE) 12.5 mg capsule Take 1 capsule (12.5 mg total) by mouth 1 (one) time each day in the morning. Active triamterene-hyd roCHLOROthiazid e (MAXZIDE-25) 37.5-25 mg per tablet Take 1 tablet by mouth 1 (one) time each day. 6 Active omeprazole (PriLOSEC) [address] capsule Take 1 capsule (40 mg total) by mouth if needed. 6 Active folic acid (FOLVITE) 1 mg tablet Take 1 tablet (1,000 mcg total) by mouth 1 (one) time each day. Active calcium carbonate-vit D3-min 600 mg-10 mcg (400 unit) tablet 400 tablets by chew route 1 (one) time each day. 5 Active phentermine 15 mg capsule Take 1 capsule (15 mg total) by mouth 1 (one) time each day before breakfast. Max Daily Amount: 15 mg 30 each 5 04/22/19 26 Active phentermine 15 mg capsule Take 1 capsule (15 mg total) by mouth 1 (one) time each day before breakfast. Max Daily Amount: 15 mg 30 each 5 01/23/20 25 Discontinu ed(Reorder ) Encounters Date Type Department Care Team Description 01/22/2025 Telephone Bariatric Surgery - [address] [phone] Miranda Vizcaino MD 12/11/2024 3:30 PM EDT Consult Bariatric Surgery [address] [phone] Miranda Vizcaino MD Class 1 obesity due to excess calories with body mass index (BMI) of 30.0 to 30.9 in adult, unspecified whether serious comorbidity present (Primary Dx) 11/12/2024 Lab Requisition [facility] Main Lab [address] [facility] [place] [place] [address] Audi Bridges DDS Benign neoplasm [...] 9:00 AM EST Consult Bariatric Surgery - [place] [address] [phone] Steff Wilkins, RD [address] [phone] 05/21/2025 9:00 AM EST Office Visit Bariatric Surgery - [place] [address] [address] Miranda Vizcaino MD [address] [place] [phone] Health Maintenance Due Date Last [...] lateral-biopsy: SUBMUCOSAL FIBROMA 11/13/2024 1:39 PM EDT [facility] Clinical Information 1 year hx of asymptomatic slowing growing pink lesion to right lateral tongue Irritation fibroma 11/13/2024 1:39 PM EDT [facility] Gross Description A. Tongue, right lateral: [...] one slide. TS 11/13/2024 1:39 PM EDT [facility] Disclaimer Unless otherwise specified, all tissue is 10% NB formalin fixed and paraffin embedded. 11/13/2024 1:39 PM EDT [facility] Tissue Tongue structure / Unknown 11/12/2024 11/12/2024 12:55 PM EDT us Audi Bridges DDS LAB PATHOLOGY ORDERABLES Fi nal Result [facility] [address] [place] [address], from Last 3 Months Insurance MEDICARE [facility] Care Teams Partnership Marketing Manager Relationship Specialty Start Date End Date Nedra Alexander MD [address] [place] [address] PCP - General Internal Medicine 12/10/24
--- OUTSIDE RECORDS SUMMARY | 2025-02-06 08:58 | XMS_ITS | Encounter Summary ---
Author Organization [facility] Address [address] [place] [address] Care Team Providers Care Middle School Teacher Name Role Phone Nedra Alexander MD Primary Care Provider [phone] Encounter Details Date Type Department Care Team (Late st Contact Info) Description 11/12/2024 Lab Requisition [facility] [address] [facility] [place] [address] Audi Bridges DDS [address] [place] [phone] Benign neoplasm of tongue Social History [...] 9:00 AM EST Consult Bariatric Surgery - [place] [address] [phone] Steff Wilkins, RD [address] [phone] 05/21/2025 9:00 AM EST Office Visit Bariatric Surgery [facility] [address] [phone] Miranda Vizcaino MD [address] [place] [phone] documented as of this encounter Procedures Procedure Name Priority Date/Time Associated Diagnosis Comments TISSUE EXAM Routine 11/12/2024 Benign neoplasm of tongue documented in this encounter Results * Tissue Exam (11/12/2024) Final Diagnosis Tongue, right lateral-biopsy: SUBMUCOSAL FIBROMA 11/13/2024 1:39 PM EDT [facility] Clinical Information 1 year hx of asymptomatic slowing growing pink lesion to right lateral tongue Irritation fibroma 11/13/2024 1:39 PM EDT [facility] Gross Description A. Tongue, [...] one slide. TS 11/13/2024 1:39 PM EDT [facility] Disclaimer Unless otherwise specified, all tissue is 10% NB formalin fixed and paraffin embedded. 11/13/2024 1:39 PM EDT [facility] Tissue Tongue structure / Unknown 11/12/2024 11/12/2024 12:55 PM EDT Audi Bridges DDS LAB PATHOLOGY ORDERABLES Fi nal Result [facility] [address] [place] [address], documented in this encounter Visit Diagnoses Diagnosis Benign neoplasm of tongue documented in this encounter Care Teams Middle School Teacher Relationship Specialty Start Date End Date Nedra Alexander MD [address] [place] [address] PCP - General Internal Medicine 12/10/24 documented as of this encounter
== END 2025-02-06 13:56 | disposition home or self-care (01) ==
LOC: HO.HMCC 08:40
PROVIDERS: PCP Internal Medicine; Visit Provider Internal Medicine
DX: M10.9 Gout, unspecified (principal); I10 Essential (primary) hypertension

== ENCOUNTER → 2025-02-06 08:39 | Outpatient (BNVA) | payer MEDICARE, SELFPAY | PROVIDERS: PCP Internal Medicine; Visit Provider Internal Medicine | DX: M10.9 Gout, unspecified (principal); I10 Essential (primary) hypertension | CPT/HCPCS: 99212 ==

== ENCOUNTER 2025-03-16 11:32 | Outpatient (AMB) | payer MEDICARE, SELFPAY ==
[2025-03-16 11:36] VITALS: BP 130/74; PULSE 85; RESP 15; TEMP 36.3; O2SAT 97; BMI 28.7
--- NOTE | 2025-03-16 11:36 | MHC.PC.OV ---
Vital Signs 03/16/25 11:36 Height 5 ft 3 in Weight 162 lb BMI 28.7 BP 130/74 Blood Pressure Location Lt brachial Position Sitting Respiration 15 Pulse 85 Pulse Source Pulse Oximeter Temp 97.4 F Temp Source Oral Pulse Oximetry (%) 97 Oxygen Delivery Method Room Air Intake Visit Reasons: 3 months f/up Intake Note: Pt is here today for 3 months follow up visit. Allergies latex Allergy (Unknown, Verified 03/16/25 11:40) unknown bee pollen Allergy (Verified 03/16/25 11:40) hives, swelling losartan Adverse Reaction (Intermediate, Verified 03/16/25 11:40) Dizziness Medication List - Last Reviewed 03/16/25 by AFSHAN Cook allopurinol 200 mg (2 x 100 mg) PO DAILY carvedilol 25 mg PO BID colchicine 0.6 mg PO BID PRN folic acid 1 mg PO DAILY methotrexate sodium 7.5 mg PO QWEEK pravastatin 20 mg PO DAILY triamterene-hydrochlorothiazid 37.5-25 mg 1 tab PO DAILY Tobacco use date assessed: 02/06/25 Dental Screening Dental Screen Date: 09/08/24 HPI 3 months f/up HPI Details Patient presents for the follow-up on hypertension hyperlipidemia seropositive rheumatoid arthritis. Patient complains of left middle finger MCP joint getting painful, swollen and difficult to move middle finger. [facility] Medical History Gout Nephrolithiasis Tongue mass Tongue abnormality Venous insufficiency of both lower extremities COPD (chronic obstructive pulmonary disease) Hyperlipidemia Radiculopathy MCNEIL (dyspnea on exertion) Dysplastic nevi Postmenopausal Schatzki's ring Annual physical exam Headache HTN (hypertension) Asthma Surgical History History of right knee surgery H/O colonoscopy No pertinent past surgical history Family History Father History of heart attack CVD (cardiovascular disease) Rheumatoid arthritis Mother Gout Social History Housing: House Alcohol intake: current Alcohol intake frequency: does not drink Patient Tobacco Use Status: Never used Tobacco e-Cigarette/Vaping Use: Never Used Second Hand Smoke Exposure: No service: No Current occupational status: retired Cognitive needs: No Hearing needs: No Vision needs: Yes Questionnaire Thrive Questionnaire Date Thrive assessed: 09/08/24 LATONYA-7 AMB Questionnaire LATONYA-7 Date LATONYA - 7 assessed: 09/08/24 Source: Developed by Drs. Audi Mae, Lisy Prajapati, Idris Garcia and colleagues, with an educational travis from [employer]. Review of Systems Const All systems reviewed & are unremarkable except as noted in HPI and below Eyes Reports no additional complaints Card Reports no additional complaints Resp Reports no additional complaints GI Reports no additional complaints Reports no additional complaints Physical exam (Primary Care) Vital Signs: Last Vital Signs Temp 97.4 F 03/16/25 11:36 Pulse 85 03/16/25 11:36 Resp 15 03/16/25 11:36 BP 130/74 03/16/25 11:36 Pulse Ox 97 03/16/25 11:36 Oxygen Delivery Method Room Air 03/16/25 11:36 BMI result Body Mass Index 28.7 Tobacco/Smoking Status: Tobacco use Status Tobacco use date assessed 02/06/25 03/16/25 11:36 Patient Tobacco Use Status Never used Tobacco 03/16/25 11:36 e-Cigarette/Vaping Use Never Used 03/16/25 11:36 Thrive Assessment: Date of Thrive Assessment Date Thrive assessed 09/08/24 03/16/25 11:36 Const General: no acute distress HENMT Head: Yes normal to inspection Eyes General: appearance normal, both eyes and all related structures Resp Effort & Inspection: normal respiratory effort Auscultation: clear to auscultation bilaterally Cardio Rhythm: regular rhythm Heart sounds: S1 normal heart sound present and S2 normal heart sound present GI Inspection: Yes normal to inspection Extrem Other: Left middle finger MCP joint deformity and soft tissue swelling no erythema or warmth. There is focal joint tenderness and significantly decreased range of motion Coding Level of Care Code Est Pt Level 4 (60823) Diagnoses Trigger finger of left hand M65.30 HTN (hypertension) I10 Gout M10.9 Hyperlipidemia E78.5 Seropositive rheumatoid arthritis M05.9 Assessment & Plan Assessment & Plan (1) Trigger finger of left hand: Code(s): M65.30 - Trigger finger, unspecified finger Category: Medical Plan: Referred to hand surgeon (2) HTN (hypertension): Code(s): I10 - Essential (primary) hypertension Category: Medical Plan: Continue current medications (3) Gout: Code(s): M10.9 - Gout, unspecified Category: Medical Plan: Continue allopurinol and colchicine (4) Hyperlipidemia: Code(s): E78.5 - Hyperlipidemia, unspecified Category: Medical Plan: Continue statin patient will have fasting blood work (5) Seropositive rheumatoid arthritis: Comment: + RF onset age 47, in remission Code(s): M05.9 - Rheumatoid arthritis with rheumatoid factor, unspecified Category: Medical Plan: Follow-up with rheumatology Orders: Orders Hemoglobin A1c Today I10 - Essential (primary) hypertension, M10.9 - Gout, unspecified Comprehensive [place]. Panel Fast Today I10 - Essential (primary) hypertension, M10.9 - Gout, unspecified Complete Blood Count Auto Diff Today I10 - Essential (primary) hypertension, M10.9 - Gout, unspecified Lipid Panel Today I10 - Essential (primary) hypertension, M10.9 - Gout, unspecified Uric Acid Today I10 - Essential (primary) hypertension, M10.9 - Gout, unspecified Referrals Hand Surgery Referral M65.30 - Trigger finger, unspecified finger
== END 2025-03-16 13:22 | disposition home or self-care (01) ==
LOC: HO.HMCC 11:33
PROVIDERS: PCP Internal Medicine; Visit Provider Internal Medicine
DX: M65.322 Trigger finger, left index finger (principal); M05.9 Rheumatoid arthritis with rheumatoid factor, unspecified; I10 Essential (primary) hypertension; M10.9 Gout, unspecified; E78.5 Hyperlipidemia, unspecified

== ENCOUNTER → 2025-03-16 11:32 | Outpatient (BNVA) | payer MEDICARE, SELFPAY | PROVIDERS: PCP Internal Medicine; Visit Provider Internal Medicine | DX: I10 Essential (primary) hypertension (principal); M10.9 Gout, unspecified; E78.5 Hyperlipidemia, unspecified; M05.79 Rheumatoid arthritis with rheumatoid factor of multiple sites without organ or systems involvement; M65.332 Trigger finger, left middle finger; Z79.899 Other long term (current) drug therapy | CPT/HCPCS: 99212 ==

== ENCOUNTER 2025-04-08 08:42 | Outpatient (AMB) | payer MEDICARE, SELFPAY ==
--- NOTE | 2025-04-08 08:43 | A.OFFVIS_ITS ---
Vital Signs 04/08/25 08:44 Height 5 ft 3 in Weight 162 lb BMI 28.7 Intake Visit Reasons: New prob - LT MF trigger Intake Note: Arleen is a 74 year old right hand dominant female who presents today for a New Problem Visit with complaints of Left Middle Finger Locking & Catching. Patient reports 2 months ago she was having trouble bending her finger however it has improved since then. She complains of pain on the dorsal aspect of her PIP. She complains of tenderness on some of her pressure points in her palm. She denies numbness or tingling. She is taking Celebrex and Methrotrexate for her Rheumatoid Arthritis. She denies any previoues injuries or surgeries to the left hand. Allergies latex Allergy (Unknown, Verified 04/08/25 08:48) unknown bee pollen Allergy (Verified 04/08/25 08:48) hives, swelling losartan Adverse Reaction (Intermediate, Verified 04/08/25 08:48) Dizziness HPI HPI New prob - LT MF trigger: Details: Arleen is a 74 year old right hand dominant female who presents today for a New Problem Visit with complaints of Left Middle Finger Locking & Catching. Patient reports 2 months ago she was having trouble bending her finger however it has improved since then. She complains of pain on the dorsal aspect of her PIP. Patient reports that most of her pain, however, is over the A1 sarah beth of the left middle finger. She complains of tenderness on some of her pressure points in her palm. She denies numbness or tingling. She is taking Celebrex and Methrotrexate for her Rheumatoid Arthritis. She denies any previoues injuries or surgeries to the left hand. [facility] Medical History Gout Nephrolithiasis Tongue mass Tongue abnormality Venous insufficiency of both lower extremities COPD (chronic obstructive pulmonary disease) Hyperlipidemia Radiculopathy MCNEIL (dyspnea on exertion) Dysplastic nevi Postmenopausal Schatzki's ring Annual physical exam Headache HTN (hypertension) Asthma Surgical History History of right knee surgery H/O colonoscopy No pertinent past surgical history Family History Father History of heart attack CVD (cardiovascular disease) Rheumatoid arthritis Mother Gout Social History Housing: House Alcohol intake: current Alcohol intake frequency: does not drink Patient Tobacco Use Status: Never used Tobacco e-Cigarette/Vaping Use: Never Used Second Hand Smoke Exposure: No service: No Current occupational status: retired Cognitive needs: No Hearing needs: No Vision needs: Yes Review of Systems Const All systems reviewed & are unremarkable except as noted in HPI and below Physical Exam Vital Signs: BMI result Body Mass Index 28.7 Extrem Other: Patient is alert, oriented, and in no acute distress. Neuro: Normal sensation of the tips of all digits of the left hand at this time Vascular: Cap refill brisk Pain: Tenderness to palpation of the A1 sarah beth of the left middle finger Some discomfort with range of motion of the left middle finger ROM: Patient was able to make a closed fist and extend all digits of the left hand fully and without difficulty Skin: No lacerations or abrasions. General: No ecchymosis, erythema, or evidence of infection. Psych: Appears grossly normal Affect normal Attitude cooperative Office Procedures AMB Tendon Injection Tendon Injection [id number] Tendon Sheath Injection All charges added?: Procedure code (CPT) selection complete Assessment & Plan Assessment & Plan (1) Flexor tendinitis of left middle finger: Code(s): M77.8 - Other enthesopathies, not elsewhere classified Category: Medical Plan 1. Pre trigger flexor tendinitis of left middle finger Patient was educated about this condition Patient is educated about the treatment options available Patient would like to proceed with steroid injection at this time The risks and benefits of a steroid injection including but not limited to risk of damage to blood vessels, nerves, tendons, infection, skin bleaching, failure to improve symptoms, increased pain, and possible need for further injections or other intervention were discussed with the patient and the patient wishes to proceed with the steroid injection. Once consent was obtained, I sterilely prepped the area over the A1 sarah beth of the flexor tendon sheath of the left middle finger. I then injected the flexor tendon sheath with a combination of 1 mL of dexamethasone (4mg/ml), and 1% lidocaine. The patient tolerated the procedure well with no complications. If the patient continues to have locking and catching 4-6 weeks following this injection, they may call to schedule appointment to discuss alternative treatment options Follow-up prn Coding Level of Care Code Est Pt Level 3 (79065) Diagnoses Flexor tendinitis of left middle finger M77.8 CPT Codes Tendon Injection - Tendon Injection 1: [id number] Tendon Sheath Injection ([id number])
[2025-04-08 08:44] VITALS: BMI 28.7
--- OUTSIDE RECORDS SUMMARY | 2025-04-08 08:45 | XMS_ITS | Encounter Summary ---
Author Organization [facility] Address [address] [place] [address] Care Team Providers Care Ct Scan Technologist Name Role Phone Nedra Alexander MD Primary Care Provider [phone] Encounter Details Date Type Department Care Team (Late st Contact Info) Description 11/12/2024 Lab Requisition [facility] [address] [facility] [place] [address] Audi Bridges DDS [address] [place] [phone] Benign neoplasm of tongue Social History [...] Care Team (Late st Contact Info) Description 05/21/2025 9:00 AM EST Office Visit Bariatric Surgery - [place] [address] [address] Miranda Vizcaino MD [address] [place] [phone] 06/22/2025 9:00 AM EDT Nutrition Bariatric Surgery - [place] [address] [address] Steff Wilkins, RD [address] [address] documented as of this encounter Procedures Procedure Name Priority Date/Time Associated Diagnosis Comments TISSUE EXAM Routine 11/12/2024 Benign neoplasm of tongue documented in this encounter Results * Tissue Exam (11/12/2024) Final Diagnosis Tongue, right lateral-biopsy: SUBMUCOSAL FIBROMA 11/13/2024 1:39 PM EDT [facility] at 1339 EDT Clinical Information 1 year hx of asymptomatic slowing growing pink lesion to right lateral tongue Irritation fibroma 11/13/2024 1:39 PM EDT [facility] Gross Description A. Tongue, [...] one slide. TS 11/13/2024 1:39 PM EDT [facility] Disclaimer Unless otherwise specified, all tissue is 10% NB formalin fixed and paraffin embedded. 11/13/2024 1:39 PM EDT [facility] Tissue Tongue structure / Unknown 11/12/2024 11/12/2024 12:55 PM EDT Audi Bridges DDS LAB PATHOLOGY ORDERABLES Fi nal Result [facility] [address] [place] [address], documented in this encounter Visit Diagnoses Diagnosis Benign neoplasm of tongue documented in this encounter Care Teams Ct Scan Technologist Relationship Specialty Start Date End Date Nedra Alexander MD [address] [place] [address] PCP - General Internal Medicine 12/10/24 documented as of this encounter
--- OUTSIDE RECORDS SUMMARY | 2025-04-08 08:45 | XMS_ITS | Clinical Summary ---
Author Organization [address] [facility] Address [address] [place] [address] Phone Care Team Providers Care Control Systems Technician Name Role Phone Nedra Alexander MD Primary Care Provider [phone] Allergies Active Allergy Reactions Criticality Noted Date [...] times a day with meals. 4 Active hydroCHLOROthi azide (MICROZIDE) 12.5 mg capsule Take 1 capsule (12.5 mg total) by mouth 1 (one) time each day in the morning. Active triamterene-hy droCHLOROthiaz rula (MAXZIDE-25) 37.5-25 mg per tablet Take 1 [...] (one) time each day. 5 Active phentermine 30 mg capsule Take 1 capsule (30 mg total) by mouth 1 (one) time each day before breakfast. Max Daily Amount: 30 mg 30 each 5 04/19/19 26 Active phentermine 15 mg capsule Take 1 capsule (15 mg total) by mouth 1 (one) time each day before breakfast. Max Daily Amount: 15 mg 30 each 5 03/19/20 25 Discontinued Encounters Date Type Department Care Team Description 03/18/2025 9:00 AM EST Consult Bariatric Surgery [address] [phone] Class 1 obesity with serious comorbidity and body mass index (BMI) of 30.0 to 30.9 in adult, unspecified obesity type (Primary Dx) 03/18/2025 Telephone Bariatric Surgery [address] [phone] Miranda Vizcaino MD 01/22/2025 Telephone Bariatric Surgery [address] [phone] Miranda Vizcaino MD from Last 3 Months Social History Tobacco [...] - Inhaled Oxygen Concentration - - Weight 74.4 kg (164 lb) 03/18/2025 10:05 AM EST Height 157.5 cm (5' 2 ) 12/11/2024 3:46 PM EDT Body Mass Index 30 12/11/2024 3:46 PM EDT Plan of Treatment Upcoming Encounters Date Type Department Care Team (Late st Contact Info) Description 05/21/2025 9:00 AM EST Office Visit Bariatric Surgery [place] [address] [facility] [address] [place] [address] Miranda Vizcaino MD [address] [place] [address] 06/22/2025 9:00 AM EDT Nutrition Bariatric Surgery - [place] [address] [phone] Steff Wilkins, RD [address] [phone] Health Maintenance Due Date Last Done Comments Breast Cancer Screening 1950 Colorectal Cancer Screening: Colonoscopy 1950 Drug Screen 1950 Non-Opioid Controlled Substance Agreement 1950 DTaP,Tdap,and Td Vaccines (1 - Tdap) [...] COVID-19 Vaccine ( season) 2024 12/25/2020, 12/04/2020 Hypertension/CHF/CAD Annual BMP Blood Test 12/11/2024 Influenza Vaccine Completed 01/20/2025, , 02/10/2023, Additional history exists HIB Vaccines Aged Out No longer eligi [...] age to complete this topic Insurance MEDICARE [facility] Care Teams Control Systems Technician Relationship Specialty Start Date End Date Nedra Alexander MD [address] [place] [phone] PCP - General Internal Medicine 12/10/24
== END 2025-04-08 09:14 | disposition home or self-care (01) ==
LOC: HO.HOS 08:42
PROVIDERS: PCP Internal Medicine
DX: M77.8 Other enthesopathies, not elsewhere classified (principal)
CPT/HCPCS: 20550; 99213

== ENCOUNTER → 2025-04-08 08:42 | Outpatient (BNVA) | payer MEDICARE, SELFPAY | PROVIDERS: PCP Internal Medicine | DX: M77.8 Other enthesopathies, not elsewhere classified (principal) | CPT/HCPCS: 20550; 99212; J1100; J2003 ==